=== PATIENT | female | born 1950 | race Caucasian/White ===

== ENCOUNTER → 2017-01-15 | Outpatient (CLI) | payer MEDICARE, MEDICAID ==
[~2017-01-15] MED LIST: ACET500T33 PO; ARFO15VI IH; ASPI-630 PO; BUDE0.5A IH; CHOL500050 PO; DILT120C80 PO; FLUT1DIS3 IH; FURO-69 PO; LEVALBUTER1.25 MG/0. IH; LISI2.5T PO; TIOT18CA IH; TRAM50TA PO; VENTOLIN HFA18 GM IH
--- NOTE | 2017-01-15 10:53 | RAD ---
FDG tumor localization scan, PET/CT, 01/15/2017: History: Restaging lung cancer Multidetector CT imaging was performed following IV injection of 14.7 mCi of 18 F-FDG. The noncontrast CT scans were obtained for attenuation correction and anatomic localization purposes rather than for primary diagnosis. The patient's blood glucose level at the time of injection was 129 MG/DL. Comparison is made to a study from 01/24/2016. No abnormal FDG uptake is seen in the lungs or mediastinum. Physiologic activity is seen in the neck. Normal GI tract and urinary tract activity is present in the abdomen and pelvis. No hypermetabolic lesion is identified in the abdomen or pelvis. Incidental CT findings include the presence of extensive pulmonary emphysema with parenchymal scarring. There is a tiny unchanged low-density lesion in the liver which may be a cyst. There is a small unchanged nodule in the medial left breast. It is not hypermetabolic. IMPRESSION: Stable PET/CT study without evidence of tumor recurrence or metastatic disease.
== END | disposition home or self-care (01) ==
LOC: PETSC 07:23
PROVIDERS: ATTEND Internal Medicine Hematology & Oncology
DX: N63 Unspecified lump in breast (principal); C34.90 Malignant neoplasm of unspecified part of unspecified bronchus or lung
CPT/HCPCS: 78815; A9552

== ENCOUNTER → 2018-01-18 | Outpatient (CLI) | payer MEDICARE, MEDICAID | END | disposition home or self-care (01) | LOC: CT 11:47 | DX: C34.31 Malignant neoplasm of lower lobe, right bronchus or lung (principal); J43.9 Emphysema, unspecified; M48.54XD Collapsed vertebra, not elsewhere classified, thoracic region, subsequent encounter for fracture with routine healing | CPT/HCPCS: 71250 ==

== ENCOUNTER → 2018-07-09 | Outpatient (CLI) | payer MEDICARE, MEDICAID ==
[~2018-07-09] MED LIST changes: -DILT120C80 PO; +DILT120C85 PO
== END | disposition home or self-care (01) ==
LOC: PMGWOUND 09:44
PROVIDERS: ATTEND Preventive Medicine Undersea and Hyperbaric Medicine
DX: L98.493 Non-pressure chronic ulcer of skin of other sites with necrosis of muscle (principal); I10 Essential (primary) hypertension; J43.9 Emphysema, unspecified; M81.0 Age-related osteoporosis without current pathological fracture; Z87.891 Personal history of nicotine dependence; Z85.118 Personal history of other malignant neoplasm of bronchus and lung
CPT/HCPCS: 97597

== ENCOUNTER → 2018-07-16 | Outpatient (CLI) | payer MEDICARE, MEDICAID | END | disposition home or self-care (01) | LOC: PMGWOUND 09:43 | PROVIDERS: ATTEND Preventive Medicine Undersea and Hyperbaric Medicine | DX: L98.493 Non-pressure chronic ulcer of skin of other sites with necrosis of muscle (principal); I10 Essential (primary) hypertension; K43.9 Ventral hernia without obstruction or gangrene; M81.0 Age-related osteoporosis without current pathological fracture; Z87.891 Personal history of nicotine dependence; Z85.118 Personal history of other malignant neoplasm of bronchus and lung | CPT/HCPCS: 97597 ==

== ENCOUNTER → 2018-07-23 | Outpatient (CLI) | payer MEDICARE, MEDICAID | END | disposition home or self-care (01) | LOC: PMGWOUND 09:53 | PROVIDERS: ATTEND Preventive Medicine Undersea and Hyperbaric Medicine | DX: L98.493 Non-pressure chronic ulcer of skin of other sites with necrosis of muscle (principal); I10 Essential (primary) hypertension; J43.9 Emphysema, unspecified; M81.0 Age-related osteoporosis without current pathological fracture; Z87.891 Personal history of nicotine dependence; Z85.118 Personal history of other malignant neoplasm of bronchus and lung | CPT/HCPCS: 97597 ==

== ENCOUNTER → 2018-07-28 | Outpatient (CLI) | payer MEDICARE, MEDICAID | END | disposition home or self-care (01) | LOC: PMGWOUND 08:48 | PROVIDERS: ATTEND Preventive Medicine Undersea and Hyperbaric Medicine | DX: L98.493 Non-pressure chronic ulcer of skin of other sites with necrosis of muscle (principal); J43.9 Emphysema, unspecified; I10 Essential (primary) hypertension; M81.0 Age-related osteoporosis without current pathological fracture; Z87.891 Personal history of nicotine dependence; Z85.118 Personal history of other malignant neoplasm of bronchus and lung | CPT/HCPCS: 97597 ==

== ENCOUNTER → 2018-08-04 | Outpatient (CLI) | payer MEDICARE, MEDICAID | END | disposition home or self-care (01) | LOC: PMGWOUND 08:52 | PROVIDERS: ATTEND Preventive Medicine Undersea and Hyperbaric Medicine | DX: L98.493 Non-pressure chronic ulcer of skin of other sites with necrosis of muscle (principal); J43.9 Emphysema, unspecified; I10 Essential (primary) hypertension; M81.0 Age-related osteoporosis without current pathological fracture; Z87.891 Personal history of nicotine dependence; Z85.118 Personal history of other malignant neoplasm of bronchus and lung | CPT/HCPCS: 97597 ==

== ENCOUNTER → 2018-08-25 | Outpatient (CLI) | payer MEDICARE, MEDICAID | END | disposition home or self-care (01) | LOC: PMGWOUND 10:56 | PROVIDERS: ATTEND Preventive Medicine Undersea and Hyperbaric Medicine | DX: L98.493 Non-pressure chronic ulcer of skin of other sites with necrosis of muscle (principal); J43.9 Emphysema, unspecified; I10 Essential (primary) hypertension; M81.0 Age-related osteoporosis without current pathological fracture; Z87.891 Personal history of nicotine dependence; Z85.118 Personal history of other malignant neoplasm of bronchus and lung | CPT/HCPCS: 99213 ==

== ENCOUNTER → 2018-12-08 | Outpatient (CLI) | payer MEDICARE, MEDICAID ==
--- NOTE | 2018-12-08 14:27 | RAD ---
DATE: 12/08/2018 EXAM: MAMMO WILSON SCREENING BILATERAL HISTORY: Routine screening COMPARISON: None available This study was interpreted with the benefit of Computerized Aided Detection (CAD). Breast Density: SCATTERED The breast parenchyma shows scattered fibroglandular densities. Breast parenchyma level B. FINDINGS: 2-D and 3-D tomosynthesis imaging was performed in CC and MLO projections. There are numerous coarse benign type calcifications in both breasts. There is a smooth nodule at approximately the 9:00 location in the left breast anteriorly which contains coarse calcifications compatible with a benign fibroadenoma. There is a 5 mm smooth nodule in the posterior aspect of the central portion of the left breast best seen on CC tomosynthesis images #11. No spiculated mass or architectural distortion is seen. No suspicious microcalcifications are evident. IMPRESSION: Small posterior left breast nodule. In the absence of prior mammograms to establish stability, sonographic evaluation is suggested. BI-RADS CATEGORY: 0 INCOMPLETE: NEEDS ADDITIONAL IMAGING EVALUATION AND/OR PRIOR MAMMOGRAMS FOR COMPARISON. RECOMMENDED FOLLOW-UP: ADD ADDITIONAL IMAGING PQRS compliance statement: Patient information was entered into a reminder system with a target due date for the next mammogram. Mammography is a sensitive method for finding small breast cancers, but it does not detect them all and is not a substitute for careful clinical examination. A negative mammogram does not negate a clinically suspicious finding and should not result in delay in biopsying a clinically suspicious abnormality. "Our facility is accredited by the [employer] Mammography Program."
== END | disposition home or self-care (01) ==
LOC: MAMMO 12:19
PROVIDERS: ATTEND Family Medicine
DX: Z12.31 Encounter for screening mammogram for malignant neoplasm of breast (principal); N63.20 Unspecified lump in the left breast, unspecified quadrant; N64.89 Other specified disorders of breast
CPT/HCPCS: 77063; 77067

== ENCOUNTER → 2018-12-15 | Outpatient (CLI) | payer MEDICARE, MEDICAID ==
--- NOTE | 2018-12-15 11:19 | RAD ---
EXAM: Left breast ultrasound. HISTORY: Nodule on mammographic screening. Sonography is requested. COMPARISON: None. FINDINGS: Sonographic evaluation of the left retroareolar breast was performed at the site of mammographic concern. At the 9:00 position 1 cm from the nipple, a thick-walled cyst corresponds with a densely calcified nodule slightly medially. This is likely an old complicated cyst or fat necrosis. Another shadowing hypoechoic nodule in the subareolar position appears superficial and likely corresponds with multiple coarse calcifications. A definitive correlate for the small mammographic nodule within the posterior 3rd is not clearly seen. IMPRESSION: 1. BI-RADS Category 3: Probably benign findings. 2. Recommend six-month follow-up left mammography to confirm stability of a small nodule centrally and posteriorly without a clear sonographic correlate.
== END | disposition home or self-care (01) ==
LOC: US 12:11
PROVIDERS: ATTEND Family Medicine
DX: N60.02 Solitary cyst of left breast (principal); R92.2 Inconclusive mammogram
CPT/HCPCS: 76641

== ENCOUNTER → 2019-02-23 | Outpatient (CLI) | payer MEDICARE, MEDICAID ==
--- NOTE | 2019-02-23 09:35 | RAD ---
PQRS Compliance Statement: One or more of the following individualized dose reduction techniques were utilized for this examination: 1. Automated exposure control 2. Adjustment of the mA and/or kV according to patient size 3. Use of iterative reconstruction technique CT chest without contrast February 23, 2019 INDICATION: Malignant neoplasm of the right upper lobe. COMPARISON: CT chest January 18, 2018, PET/CT January 15, 2017 TECHNIQUE: Multiple axial CT images of the chest were obtained without intravenous contrast. Coronal and sagittal reformats are provided. FINDINGS: There is severe centrilobular pulmonary emphysema. Bandlike density in the left lower lobe most favors subsegmental atelectasis or scarring. Stable parenchymal scarring at the right lung base along the right hemidiaphragm. No new or enlarging solid noncalcified pulmonary nodule is identified. Thyroid gland is normal in appearance. No pathologically enlarged thoracic lymph nodes. Heart size within normal limits. Three-vessel coronary artery vascular calcific effusions are identified. No suspicious adrenal nodules. No suspicious hepatic lesion. There is increased density of the hepatic parenchyma. Treated compression fractures are identified at T8, T10 and T11. Remote compression deformity is identified at T7 similar 50-75% height loss. IMPRESSION: 1. Severe centrilobular pulmonary emphysema. Right lower lobe chronic atelectasis or scarring. No new or enlarging solid noncalcified pulmonary nodules. 2. Stable superior plate compression deformity at T7 with chronic treated compression deformities at T8, T10 and T11. Electronically signed by: Roxann Swain MD (02/23/2019 9:32 AM) [id number]
== END | disposition home or self-care (01) ==
LOC: CT 08:28
PROVIDERS: ATTEND Internal Medicine Hematology & Oncology
DX: C34.31 Malignant neoplasm of lower lobe, right bronchus or lung (principal); J43.2 Centrilobular emphysema; J98.4 Other disorders of lung; J90 Pleural effusion, not elsewhere classified
CPT/HCPCS: 71250

== ENCOUNTER → 2019-06-16 | Outpatient (CLI) | payer MEDICARE, MEDICAID ==
[~2019-06-16] MED LIST changes: -DILT120C85 PO; +DILT120C99 PO
--- NOTE | 2019-06-16 14:05 | RAD ---
DATE: June 16, 2019 EXAM: MAMMO WILSON LELANDG LT, BREAST LEFT SONOGRAPHY HISTORY: Follow-up of central nodule seen mammographically only without sonographic correlate. COMPARISON: December 08, 2018 This study was interpreted with the benefit of Computerized Aided Detection (CAD). FINDINGS: Breast Density: SCATTERED The breast parenchyma shows scattered fibroglandular densities. Breast parenchyma level B.. The previously seen central nodule within the left breast is stable. Again seen are coarse calcifications within the left breast. Again seen is a nodule with coarse calcifications of the anterior left breast just medial to the nipple line corresponding to a thick-walled cyst seen sonographically i.e. oil cyst in association with fat necrosis. This is stable. No new new breast mass or architectural distortion or clustering of pleomorphic microcalcifications are evident. LEFT BREAST SONOGRAPHY: High-resolution sonography of the left breast at the 9:00 position again demonstrates a thick-walled cyst measuring 10 mm in greatest dimension and this is unchanged. No internal color Doppler flow is seen within it. Adjacent ductal ectasia is seen. At the 12:00 position of the retroareolar region of the left breast, a 3 mm calcification is seen which corresponds to the mammographic finding of a coarse benign calcification here. IMPRESSION: Stable probable benign nodule of the central aspect left breast. Recommend bilateral mammography in 6 months. Stable complex cyst with a thick wall of the anterior aspect of the left breast at the 9:00 position corresponding to an oil cyst related to fat necrosis seen mammographically. BI-RADS CATEGORY: 3 PROBABLE BENIGN-SHORT TERM F/U RECOMMENDED FOLLOW-UP: 6M 6 MONTH FOLLOW-UP PQRS compliance statement: Patient information was entered into a reminder system with a target due date December 16, 2019 for the next mammogram. Mammography is a sensitive method for finding small breast cancers, but it does not detect them all and is not a substitute for careful clinical examination. A negative mammogram does not negate a clinically suspicious finding and should not result in delay in biopsying a clinically suspicious abnormality. "Our facility is accredited by the [employer] Mammography Program." The patient's breast density may affect the ability of mammography to detect breast cancer. There are 4 categories of breast density, A, B, C and D. Breast density A means that most of the breast tissue is replaced with adipose tissue and therefore is not dense. Breast density B means that the breast tissue is mildly dense and scattered. Breast density C means that the breast tissue is heterogeneously dense. Breast density D means that the breast tissue is very dense. Breast densities especially C and D may decrease the sensitivity of mammography to detect breast cancer. Therefore, the patient may benefit from 3-D breast mammography (3D breast tomography) as a part of their screening mammogram. Insurance may or may not pay for this additional imaging. The patient's breast density based on today's mammogram is category B.
== END | disposition home or self-care (01) ==
LOC: US 12:32
PROVIDERS: ATTEND Family Medicine
DX: N60.42 Mammary duct ectasia of left breast (principal); N60.02 Solitary cyst of left breast; R92.1 Mammographic calcification found on diagnostic imaging of breast
CPT/HCPCS: 76641; 77065; G0279; 77061

== ENCOUNTER → 2019-12-09 | Outpatient (CLI) | payer MEDICARE, MEDICAID ==
--- NOTE | 2019-12-09 12:03 | RAD ---
CLINICAL HISTORY: Prior lung cancer, restaging COMPARISON: None available. TECHNIQUE: Location of scan: [facility] Radiopharmaceutical Dose: 15.5 mCi F-18 FDG intravenous Blood glucose at time of study: 106 FDG uptake time = 60 minutes. Images were obtained from the mid head to the mid thighs. A low dose, noncontrast CT study was performed for the purpose of attenuation correction and anatomic localization. FINDINGS: Head and Neck: Physiologic activity seen within the neck. Chest: No suspicious hypermetabolic focus is seen within the thorax. Emphysematous changes are seen within the lungs. Architectural changes in the right lower lobe dependently likely scarring/atelectasis with associated bronchiectasis. Linear opacities left lower lobe also likely scarring/atelectasis. Coronary artery calcifications are seen. Abdomen and Pelvis: Focus of increased FDG uptake in the right pelvis likely dependent aspect of the partially distended bladder with an SUV max of 25. No associated dominant mass or bowel loop is seen correlating to this focus. Physiologic activity is seen within the renal collecting systems, bowel as well as the solid organs including liver. High density appearance of the liver is nonspecific and may be seen with metal deposition disease, glycogen storage disease and from amiodarone therapy. Subcentimeter hypodense left hepatic lobe lesion is too small to accurately characterize. Nonobstructing right lower pole renal calculus. Dense aortic calcifications are seen. Skeletal: There is now increased FDG activity diffusely within the marrow. No definite aggressive osseous lesion is seen. Multilevel degenerative changes of spine with multilevel compression fractures and kyphoplasty change. Reference SUV Values: Mediastinal SUV Max: 2.1 Liver SUV Max: 2.4 IMPRESSION 1. Diffuse increased FDG activity of the marrow, typically seen with post treatment related changes. However pathologic marrow process including severe anemia and myelodysplastic syndrome would have also this appearance. 2. Otherwise, no definite abnormal hypermetabolic focus is seen to suggest metastatic disease. 3. Mild increased density of the liver may be seen with metal deposition disease and amiodarone therapy. Radiation Dosimetry: The radiopharmaceutical used for this exam delivers approximately 0.7 mSv/mCi (70 mRem/mCi) Source: ICRP Publication 106 Electronically signed by: Lyle Cheek MD (12/09/2019 12:00 PM) [id number]
== END | disposition home or self-care (01) ==
LOC: PETSC 10:20
PROVIDERS: ATTEND Internal Medicine Hematology & Oncology
DX: C34.31 Malignant neoplasm of lower lobe, right bronchus or lung (principal); J43.9 Emphysema, unspecified; I25.10 Atherosclerotic heart disease of native coronary artery without angina pectoris; E74.00 Glycogen storage disease, unspecified; K76.89 Other specified diseases of liver; N20.0 Calculus of kidney; I70.0 Atherosclerosis of aorta
CPT/HCPCS: 78815; A9552

== ENCOUNTER → 2020-01-04 | Outpatient (CLI) | payer MEDICARE, MEDICAID ==
[2020-01-04 11:42] LABS: BASO % 5 % (0-3); EOS # 0.1 x10^3/uL (0.0-0.7); EOS % 1 % (0-3); HEMATOCRIT 40.8 % (36.0-47.0); HEMOGLOBIN 13.2 g/dL (12.0-15.5); LYMPH # 1.1 x10^3/uL (1.0-4.8); LYMPH % 5 % (24-48); MEAN CORPUSCULAR HEMOGLOBIN 29 pg (25-35); MEAN CORPUSCULAR HGB CONC 32 g/dL (31-37); MEAN CORPUSCULAR VOLUME 89 fL (79-100); MONO # 0.3 x10^3/uL (0.0-1.1); MONO % 1 % (0-9); NEUT # 18.6 x10^3/uL (1.8-7.7); NEUT % 88 % (31-73); PLATELET COUNT 821 x10^3/uL (140-400); RED BLOOD COUNT 4.59 x10^6/uL (3.50-5.40); RED CELL DISTRIBUTION WIDTH 17.5 % (11.5-14.5)
[2020-01-04 11:49] LABS: CALCIUM 9.3 mg/dL (8.5-10.1); CREATININE 0.8 mg/dL (0.6-1.0); GFR 71.3; POTASSIUM 4.2 mmol/L (3.5-5.1)
[2020-01-04 11:58] LABS: ALBUMIN 3.6 g/dL (3.4-5.0); DIRECT BILIRUBIN 0.1 mg/dL (0.0-0.2); TOTAL BILIRUBIN 0.2 mg/dL (0.2-1.0); TOTAL PROTEIN 7.4 g/dL (6.4-8.2); URIC ACID 4.3 mg/dL (2.6-6.0)
[2020-01-04 12:13] LABS: WHITE BLOOD COUNT 21.1 x10^3/uL (4.0-11.0)
== END | disposition home or self-care (01) ==
LOC: ONCLAB 11:26
PROVIDERS: ATTEND Internal Medicine Hematology & Oncology
DX: C34.90 Malignant neoplasm of unspecified part of unspecified bronchus or lung (principal)
CPT/HCPCS: 36415; 80048; 80076; 83615; 83735; 84550; 85025; 86705; 86709; 86803; 87340

== ENCOUNTER → 2020-01-09 | Outpatient (CLI) | payer MEDICARE, MEDICAID ==
[~2020-01-09] MED LIST changes: +ALEN70TA6 PO; +AMIO100T4 PO; +APIX5TAB PO; +BUDE0.5A NEB; +CALC-71 PO; +DILT240C33 PO; +FURO20TA3 PO; +IBUP200T58 PO; +IPRA3AMP29 NEB; +POLY17PO29 PO; +POTA10TA6 PO; +Vitamin D2 PO; +[UNRECOGNIZED DRUG - CODE] PO
--- NOTE | 2020-01-09 17:32 | CARD ---
MR#: [id number] Date of Study: 01/09/2020 Ordering Physician: DEEJAY MAJOR, Referring Physician: DEEJAY MAJOR, Tech: Kait Myers APPROVED REPORT EXAM: Two-dimensional and M-mode echocardiogram with Doppler and color Doppler. Other Information Quality : AverageHR: 99bpm Technically limited study due to COPD INDICATION LV Function:SystolicDiastolic RISK FACTORS Hypertension 2D DIMENSIONS Left Atrium(2D)2.9 (1.6-4.0cm)IVSd1.2 (0.7-1.1cm) Aortic Root(2D)3.2 (2.0-3.7cm)LVDd4.2 (3.9-5.9cm) LVOT Diameter2.0 (1.8-2.4cm)PWd1.0 (0.7-1.1cm) LVDs2.6 (2.5-4.0cm)LVEF(%)64.0 (>50%) Aortic Valve AoV Peak Frank.148.8cm/sAoV VTI28.6cm AO Peak GR.8.9mmHgLVOT Peak Frank.99.6cm/s LVOT VTI 25.57cmAO Mean GR.5mmHg Mitral Valve MV E Peak Gr.146mmHgMV E Mean Gr.2mmHg Pulmonary Valve PV Peak Yqrcbtii108.2cm/sPV Peak Grad.4mmHg Tricuspid Valve TR P. Joqbujxs689zv/sRAP FVKZFRKN1prHv TR Peak Gr.70loKkBKJF30nwPt Pulmonary Vein S1 Shuvxefh91.2cm/sD2 Amtkqnlo88.5cm/s PVa frmxbyrg589fbmr LEFT VENTRICLE The left ventricle is normal size. There is borderline to mild concentric left ventricular hypertroph y. The left ventricular systolic function is low normal. EF 50% Wall motion consistent with conductio n abnormality. Otherwise, grossly normal wall motion. Transmitral Doppler flow pattern is Grade I-abn ormal relaxation pattern. RIGHT VENTRICLE The right ventricle is normal size. There is normal right ventricular wall thickness. The right ventr icular systolic function is normal. ATRIA The left atrium size is normal. The right atrium size is normal. The interatrial septum is intact wit h no evidence for an atrial septal defect or patent foramen ovale as noted on 2-D or Doppler imaging. AORTIC VALVE The aortic valve is thickened but opens well. Doppler and Color Flow revealed no significant aortic r egurgitation. There is no significant aortic valvular stenosis. Calculated aortic maximum pressure gr adient of 9 mmHg and mean pressure gradient of 5 mmHg. MITRAL VALVE The mitral valve is normal in structure and function. There is no evidence of mitral valve prolapse. There is no mitral valve stenosis. Doppler and Color-flow revealed trace to mild mitral regurgitation . TRICUSPID VALVE The tricuspid valve is normal in structure and function. Doppler and Color Flow revealed mild tricusp id regurgitation with an estimated PAP of 58 mmHg. There is no tricuspid valve stenosis. PULMONIC VALVE The pulmonic valve is not well visualized. Doppler and Color Flow revealed trace pulmonic valvular re gurgitation. There is no pulmonic valvular stenosis. GREAT VESSELS The aortic root is normal in size. The IVC is normal in size and collapses >50% with inspiration. PERICARDIAL EFFUSION There is no evidence of significant pericardial effusion. Critical Notification Critical Value: No <Conclusion> The left ventricular systolic function is low normal. EF 50% Wall motion consistent with conduction abnormality. Otherwise, grossly normal wall motion. Doppler and Color Flow revealed mild tricuspid regurgitation with an estimated PAP of 58 mmHg. Signed by : Chepe Saab, Electronically Approved : 01/09/2020 17:32:07
== END | disposition home or self-care (01) ==
LOC: ECHO 14:48
PROVIDERS: ATTEND Internal Medicine Hematology & Oncology
DX: I08.1 Rheumatic disorders of both mitral and tricuspid valves (principal); C92.10 Chronic myeloid leukemia, BCR/ABL-positive, not having achieved remission
CPT/HCPCS: 93306

== ENCOUNTER 2020-01-11 06:57 | Outpatient (CLI) | payer MEDICARE, MEDICAID ==
[~2020-01-11] VITALS: Ht 157.5 cm; Wt 50.8 kg
[2020-01-11] VITALS (9 sets, daily range): BP systolic 134–202; BP diastolic 60–87
[~2020-01-11 06:57] MED LIST changes: -ALEN70TA6 PO; -AMIO100T4 PO; -APIX5TAB PO; -BUDE0.5A NEB; -CALC-71 PO; -DILT240C33 PO; -FURO20TA3 PO; -IBUP200T58 PO; -IPRA3AMP29 NEB; -POLY17PO29 PO; -POTA10TA6 PO; -Vitamin D2 PO; -[UNRECOGNIZED DRUG - CODE] PO
[2020-01-11] MEDS ORDERED: IBUP200T58 PO (07:30)
[2020-01-11] MEDS ORDERED: POLY17PO29 PO (07:30)
[2020-01-11] MEDS ORDERED: CALC-71 PO (07:30)
[2020-01-11] MEDS ORDERED: BUDE0.5A NEB (07:30)
[2020-01-11] MEDS ORDERED: [UNRECOGNIZED DRUG - CODE] PO (07:30)
[2020-01-11] MEDS ORDERED: AMIO100T4 PO (07:30)
[2020-01-11] MEDS ORDERED: FURO20TA3 PO (07:30)
[2020-01-11] MEDS ORDERED: IPRA3AMP29 NEB (07:30)
[2020-01-11] MEDS ORDERED: POTA10TA6 PO (07:30)
[2020-01-11] MEDS ORDERED: Vitamin D2 PO (07:30)
[2020-01-11] MEDS ORDERED: DILT240C33 PO (07:30)
[2020-01-11] MEDS ORDERED: APIX5TAB PO (07:30)
[2020-01-11] MEDS ORDERED: ALEN70TA6 PO (07:30)
[2020-01-11 07:31] LABS: BASO # 0.8 x10^3/uL (0.0-0.2); BASO % 3 % (0-3); EOS # 0.1 x10^3/uL (0.0-0.7); EOS % 1 % (0-3); HEMATOCRIT 39.4 % (36.0-47.0); LYMPH # 1.1 x10^3/uL (1.0-4.8); LYMPH % 5 % (24-48); MEAN CORPUSCULAR HEMOGLOBIN 29 pg (25-35); MEAN CORPUSCULAR HGB CONC 33 g/dL (31-37); MEAN CORPUSCULAR VOLUME 89 fL (79-100); MONO # 0.3 x10^3/uL (0.0-1.1); MONO % 1 % (0-9); NEUT # 21.2 x10^3/uL (1.8-7.7); NEUT % 90 % (31-73); PLATELET COUNT 799 x10^3/uL (140-400); RED BLOOD COUNT 4.45 x10^6/uL (3.50-5.40); RED CELL DISTRIBUTION WIDTH 17.3 % (11.5-14.5); WHITE BLOOD COUNT 23.6 x10^3/uL (4.0-11.0)
[2020-01-11 07:40] LABS: PROTHROMBIN TIME PATIENT 13.3 SEC (11.7-14.0)
[2020-01-11] MEDS ORDERED: LIDOCAINE WITH 8.4% SOD BICARB 3 ML DISP.SYRIN. ONE (08:19)
[2020-01-11] MEDS ORDERED: fentaNYL PF VIAL 100 MCG/2 ML VIAL ONE (08:42)
[2020-01-11] MEDS ORDERED: MIDAZOLAM HCL/PF 2 MG/2 ML VIAL. ONE (08:42)
[2020-01-11] MEDS ORDERED: LIDOCAINE WITH 8.4% SOD BICARB 3 ML DISP.SYRIN. IJ ONE (09:00)
[2020-01-11] MEDS ORDERED: fentaNYL PF VIAL 100 MCG/2 ML VIAL IV ONE (09:00)
[2020-01-11] MEDS ORDERED: MIDAZOLAM HCL/PF 2 MG/2 ML VIAL. IV ONE (09:00)
--- NOTE | 2020-01-11 10:50 | NUR ---
Discharge Note: JEM [place] Discharge instructions and discharge home medications reviewed with Patient and a copy given. All questions have been answered and understanding verbalized. Dressing remains clean and dry The following instructions and handouts were given: Bone marrow biopsy Discontinued lines and drains: Peripheral IV intact. Patient discharged to Home or Self Care with Family Member via personal Wheelchair PREET COVARRUBIAS Addendum: 01/11/20 at 1138 by ENZO BEASLEY RN Amended: Links added.
[2020-01-11 10:56] LABS: % BANDS 2 % (0-9); % BASOS 7 % (0-3); % LYMPHS 3 % (24-48); % METAS 1 % (0-0); % MONOS 5 % (0-10); % MYELOS 1 % (0-0); % SEGS 81 % (35-66); PLT ESTIMATE INCREASED (ADEQUATE)
--- NOTE | 2020-01-12 08:42 | RAD ---
Procedure: CT-guided bone marrow aspiration and biopsy Clinical Indication: Adult female with anemia Sedation: Minimal anxiolysis was provided. Antibiotics: None Fluoro Time: Not applicable Contrast: None Sterility: The procedure was performed in its entirety using appropriate elements of sterile technique. Consent: The procedure was explained in its entirety to the patient or the patients designated major account representative by a member of the treatment team, including a discussion of the risks, benefits and commonly accepted alternatives to the procedure, as well as the expected consequences of no therapy whatsoever. Discussion of the risks included, but was not limited to, those that are most frequent and those that are rare but possibly severe or life-threatening, as well as the possibility of unforeseen complications. Technique and Findings: Following informed consent, the patient was prepped and draped in usual sterile fashion. Preliminary CT scan of the area of interest was performed. 1% Lidocaine was used to achieve local anesthesia. Under periodic CT surveillance, an 11-gauge needle was advanced through the cortex of the posterior superior iliac spine and 2 separate 2 mL marrow aspirates were obtained and preserved on site by the financial assistant. A single 11-gauge core biopsy specimen was then obtained and preserved in formalin. The needle was then removed and hemostasis was achieved with manual compression. Complications: No immediate Impression: 1. CT-guided bone marrow aspiration and biopsy as described PQRS Compliance Statement: One or more of the following individualized dose reduction techniques were utilized for this examination: 1. Automated exposure control 2. Adjustment of the mA and/or kV according to patient size 3. Use of iterative reconstruction technique
--- NOTE | 2020-01-20 09:08 | PATHOLOGY ---
[facility] Accession Number: [id number] . 01 Material submitted: . PART A: bone - BONE MARROW BIOPSY PART B: bone - BONE MARROW CLOT PART C: bone - BONE MARROW ASPIRATE SLIDES PART D: bone - PERIPHERAL BLOOD SMEARS PART E: bone - BONE MARROW FLOW . 01 Clinical history: . Chronic myelogenous leukemia . 02 Diagnosis: Peripheral smear: - Moderate neutrophilic leukocytosis with left shift and small myelocyte bulge, and absolute basophilia. - Thrombocytosis, moderate. . Bone marrow, aspirate smears, clot section, and core biopsy: - Markedly hypercellular marrow showing trilieage hematopoeisis, granulocytic hyperplasia with left shift and myelocyte bulge, megakaryocytic hyperplasia with dwarf megakaryocytes, mild basophilia, and presence of t(9;22) translocation - findings compatible with chronic myelogenous leukemia, chronic phase. - Absent iron stores. (JPM:dianna; 01/19/2020) [facility] 01/20/2020 0846 Local . 02 Comment: The peripheral smear shows a moderate neutrophilic leukocytosis with small myelocyte bulge, absolute basophilia, and moderate thrombocytosis. The bone marrow is markedly hypercellular and shows granulocytic hyperplasia with left shift and myelocyte bulge, mild basophilia, and megakaryocytic hyperplasia with dwarf megakaryocytes. There are approximately 2% blasts by morphology and flow cytometric analysis. Cytogenetic analysis shows a t(9;22) translocation in all cells. The findings are supportive of the diagnosis of chronic myelogenous leukemia, chronic phase. (EDDM:dianna; 01/19/2020) . Special stains performed: Iron stains on B1 and C1; retic stain on A1. . 02 Electronically signed: . Wilton Holland MD, Pathologist NPI- [id number] . 01 Gross description: . A. The specimen is received in formalin, labeled "Bailey Son, bone marrow biopsy". Received are two needle cores of light ritchie bone ranging in length from 0.3 to 1.1 cm and measuring 0.3 cm in diameter. The specimen is submitted entirely in cassette A1, following light decalcification. . B. The specimen is received in formalin, labeled "Bailey Son, BM aspirate clot". Received is blood coagulum measuring 1.5 x 1.3 x 0.1 cm in aggregate dimensions. The specimen is filtered and entirely submitted in cassette B1. (CAA; 01/11/2020) QA/QA 01/11/2020 1638 Local . 02 Microscopic: . Laboratory Data: The WBC count is 23.6 K/CMM, and the WBC differential reveals 81% segmented neutrophils, 2% bands, 3% lymphs, 5% monos, 7% baso, 1% metamyelocytes, and 1% myelocytes. The RBC count is 4.45 M/CMM, hemoglobin 13.0 G/DL, hematocrit 39.4%, MCV 89 FL, MCH 29 PG, MCHC 33 G/DL, and the RDW is 17.3%. The platelet count is 799 K/CMM. The LDH is 281 U/L. . Peripheral Smear: The peripheral smear is reviewed. The WBC count is moderately increased. There is a neutrophilic leukocytosis with left shift, and an absolute basophilia. The WBC differential reveals a predominance of segmented neutrophils. There is a neutrophilic left shift with several myelocytes and metamyelocytes and a rare blast noted. There are a few lymphocytes and monocytes. Basophils are increased. Red blood cells predominantly appear normochromic and normocytic and show mild anisocytosis. Red blood cells show no significant poikilocytosis. There is a rare circulating nucleated red blood cell. Platelets are moderately increased with occasional large and rare giant platelets noted. . Aspirate Smears: Two Thomas's-stained and one iron-stained aspirate smears are examined. The smears contain multiple cellular marrow particles which are obviously hypercellular for age. There is a granulocytic hyperplasia. The M/E ratio is on the order of approximately 10:1. Erythroid maturation is normoblastic. There are no megaloblastic or overt dysplastic changes. There is a modest left shift of granulopoiesis with a small myelocyte bulge mirroring the peripheral smear. There are only 2% blasts. No Jaswinder rods are identified. There is megakaryocytic hyperplasia with focal clustering of megakaryocytes noted. The megakaryocytes are smaller than normal and have hyposegmented nuclei (dwarf megakaryocytes). Eosinophils are not increased. Basophils are mildly increased. There are occasional pseudo-Gaucher cells present. There is no increase of lymphocytes or plasma cells. There are no cells foreign to the marrow. The iron stain shows absent iron stores. No ringed sideroblasts are identified. . Bone Marrow Biopsy and Clot Section: Sections of the bone marrow biopsy reveal a hypercellular marrow which is approximately 80-90% cellular. The clot section contains numerous marrow particles which also are on the order of 80-90% cellular. There is a granulocytic hyperplasia. Erythopoeisis appears decreased. Maturing granulocytes are readily demonstrated. There are also areas showing an increase of medium-sized immature mononuclear cells compatible with a left shift of granulocytic maturation and myelocyte bulge. There is no apparent increase of blasts. Megakaryocytes are increased and focally clustered. The megakaryocytes are smaller than normal and have hyposegmented nuclei (dwarf megakaryocytes). There are focal pseudo-Gaucher cells. There are no abnormal lymphoid aggregates, granulomas, or cells foreign to the marrow. The reticulin stain of the biopsy shows focal mild increase of reticulin fibers. The iron stain of the clot section shows absent iron stores. . Special Studies: Bone marrow submitted for flow cytometric analysis has a viability of 93.5%. Granulocytes comprise 93.7% of total cells and show phenotypic evidence of left shifted maturation with expression of CD56. Eosinophils comprise 0.3% of total cells. Basophils also comprise 0.3% of total cells. CD45 dim, CD34 positive cells comprise 1.8% of total cells. Monocytes comprise 1.9% of total cells. Lymphocytes comprise 1.8% of total cells. T-cells comprise 79% of lymphoid cells and show a CD4/CD8 ratio of 1.0. NK-cells comprise 11% of lymphoid cells. Mature B-cells comprise 3% of lymphoid cells and are polyclonal with a kappa:lambda ratio of 2.5. Plasma cells comprise 0.3% of total cells. . Bone marrow submitted for cytogenetic analysis shows an abnormal female karyotype. 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 . (JPM:dianna; 01/19/2020) . 02 Pathologist provided ICD-10: D72.829, D47.3, D75.89 . 02 CPT . 655771, 072779, 238033, 173248, 098039, 490309, 407517, 846803 Specimen Comment: A courtesy copy of this report has been sent to [phone], [phone] Specimen Comment: [id number], Specimen Comment: Report sent to ,DR MAJOR / DR AVITIA Performed at: 01 [facility] [address], [place] [id number] MD Buck Acharya MD Phone: [phone] Performed at: 02 [facility] [address], [place] [id number] MD Wilton Holland MD Phone: [phone]
== END 2020-01-11 10:50 | disposition home or self-care (01) ==
LOC: INTRAD 06:57
PROVIDERS: ATTEND Internal Medicine Hematology & Oncology
DX: C92.10 Chronic myeloid leukemia, BCR/ABL-positive, not having achieved remission (principal); Z79.01 Long term (current) use of anticoagulants
CPT/HCPCS: 36415; 38222; 77012; 85025; 85610; 88184; 88185; 88237; J3010; J3490; 85007; 88305; 88311; 88313; 99152

== ENCOUNTER → 2020-01-26 | Outpatient (CLI) | payer MEDICARE, MEDICAID ==
[2020-01-11 10:45] VITALS: BP 139/68
[~2020-01-26] MED LIST changes: +ALEN70TA6 PO; +AMIO100T4 PO; +APIX5TAB PO; +BUDE0.5A NEB; +CALC-71 PO; +DILT240C33 PO; +FURO20TA3 PO; +IBUP200T58 PO; +IPRA3AMP29 NEB; +POLY17PO29 PO; +POTA10TA6 PO; +Vitamin D2 PO; +[UNRECOGNIZED DRUG - CODE] PO
[2020-01-26 13:13] LABS: BASO # 0.4 x10^3/uL (0.0-0.2); BASO % 3 % (0-3); EOS # 0.1 x10^3/uL (0.0-0.7); EOS % 1 % (0-3); LYMPH # 0.8 x10^3/uL (1.0-4.8); LYMPH % 5 % (24-48); MEAN CORPUSCULAR HEMOGLOBIN 31 pg (25-35); MEAN CORPUSCULAR HGB CONC 34 g/dL (31-37); MEAN CORPUSCULAR VOLUME 89 fL (79-100); MONO # 0.1 x10^3/uL (0.0-1.1); MONO % 1 % (0-9); NEUT # 13.4 x10^3/uL (1.8-7.7); NEUT % 90 % (31-73); PLATELET COUNT 714 x10^3/uL (140-400); RED BLOOD COUNT 4.27 x10^6/uL (3.50-5.40); RED CELL DISTRIBUTION WIDTH 17.1 % (11.5-14.5); WHITE BLOOD COUNT 14.9 x10^3/uL (4.0-11.0)
[2020-01-26 13:41] LABS: CREATININE 0.9 mg/dL (0.6-1.0); GFR 62.3; POTASSIUM 4.1 mmol/L (3.5-5.1)
[2020-01-26 13:45] LABS: ALBUMIN 3.4 g/dL (3.4-5.0); TOTAL BILIRUBIN 0.3 mg/dL (0.2-1.0); TOTAL PROTEIN 6.8 g/dL (6.4-8.2); URIC ACID 4.5 mg/dL (2.6-6.0)
[2020-01-26 13:49] LABS: % BANDS 1 % (0-9); % MONOS 1 % (0-10); % SEGS 90 % (35-66); PLT ESTIMATE INCREASED (ADEQUATE)
[2020-01-26 13:50] LABS: ANISOCYTOSIS SLIGHT
[2020-01-26 13:52] LABS: % BASOS 3 % (0-3); % LYMPHS 5 % (24-48); POIKILOCYTOSIS SLIGHT
== END | disposition home or self-care (01) ==
LOC: ONCLAB 12:51
PROVIDERS: ATTEND Internal Medicine Hematology & Oncology
DX: R92.8 Other abnormal and inconclusive findings on diagnostic imaging of breast (principal); N63.22 Unspecified lump in the left breast, upper inner quadrant
CPT/HCPCS: 36415; 80053; 83615; 84550; 85007; 85025

== ENCOUNTER → 2020-02-10 | Outpatient (CLI) | payer MEDICARE, MEDICAID ==
[2020-01-11 10:45] VITALS: BP 139/68
[~2020-02-10] MED LIST changes: +GLEEVEC400 MG PO
[2020-02-10 13:03] LABS: BASO % 0 % (0-3); EOS % 0 % (0-3); HEMATOCRIT 33.5 % (36.0-47.0); HEMOGLOBIN 11.1 g/dL (12.0-15.5); LYMPH # 0.3 x10^3/uL (1.0-4.8); LYMPH % 4 % (24-48); MEAN CORPUSCULAR HEMOGLOBIN 30 pg (25-35); MEAN CORPUSCULAR HGB CONC 33 g/dL (31-37); MEAN CORPUSCULAR VOLUME 90 fL (79-100); MONO # 0.2 x10^3/uL (0.0-1.1); MONO % 3 % (0-9); NEUT # 6.7 x10^3/uL (1.8-7.7); NEUT % 93 % (31-73); PLATELET COUNT 58 x10^3/uL (140-400); RED BLOOD COUNT 3.72 x10^6/uL (3.50-5.40); RED CELL DISTRIBUTION WIDTH 17.5 % (11.5-14.5); WHITE BLOOD COUNT 7.2 x10^3/uL (4.0-11.0)
[2020-02-10 13:28] LABS: BLOOD UREA NITROGEN 10 mg/dL (7-20); BUN/CREATININE RATIO 14 (6-20); CALCIUM 8.7 mg/dL (8.5-10.1); CARBON DIOXIDE 38 mmol/L (21-32); CHLORIDE 101 mmol/L (98-107); CREATININE 0.7 mg/dL (0.6-1.0); GFR 83.2; GLUCOSE 84 mg/dL (70-99); POTASSIUM 3.7 mmol/L (3.5-5.1); SODIUM 138 mmol/L (136-145)
[2020-02-10 13:49] LABS: ALBUMIN 2.8 g/dL (3.4-5.0); ALBUMIN/GLOBULIN RATIO 0.9 (1.0-1.7); ALK PHOS 92 U/L (46-116); ALT (SGPT) 19 U/L (14-59); AST (SGOT) 19 U/L (15-37); TOTAL BILIRUBIN 0.4 mg/dL (0.2-1.0); TOTAL PROTEIN 5.9 g/dL (6.4-8.2)
[2020-02-10 13:51] LABS: % LYMPHS 4 % (24-48); % MONOS 2 % (0-10); % SEGS 94 % (35-66)
[2020-02-10 13:52] LABS: ANISOCYTOSIS SLIGHT; PLT ESTIMATE DECREASED (ADEQUATE)
== END | disposition home or self-care (01) ==
LOC: ONCLAB 12:47
PROVIDERS: ATTEND Internal Medicine Hematology & Oncology
DX: C92.10 Chronic myeloid leukemia, BCR/ABL-positive, not having achieved remission (principal)
CPT/HCPCS: 36415; 80053; 85007; 85025

== ENCOUNTER → 2020-02-10 | Outpatient (CLI) | payer MEDICARE, MEDICAID ==
[2020-01-11 10:45] VITALS: BP 139/68
[~2020-02-10] MED LIST changes: -GLEEVEC400 MG PO
--- NOTE | 2020-02-10 15:30 | RAD ---
EXAM: CHEST PA LATERAL INDICATION: Reason: CHRONIC MYELOGENOUS LUKEMIA. SHORTNESS OF BREATH. / Spl. Instructions: / History: . TECHNIQUE: PA and lateral views COMPARISON: PET CT 12/09/2019 FINDINGS: The heart size is normal. The great vessels appear unremarkable. There is no hilar or mediastinal mass. Lungs are hyperlucent in a pattern consistent with underlying COPD. Small bilateral pleural effusions are present. No pneumothorax Bones are demineralized and show evidence of vertebroplasty at T8, T10 and T11, similar to prior. IMPRESSION: Emphysema and small bilateral pleural effusions. No pneumothorax or other acute superimposed cardiopulmonary process. Electronically signed by: Kathleen Meraz MD (02/10/2020 3:27 PM) [id number]
== END | disposition home or self-care (01) ==
LOC: LAB 13:34
PROVIDERS: ATTEND Internal Medicine Hematology & Oncology
DX: C92.10 Chronic myeloid leukemia, BCR/ABL-positive, not having achieved remission (principal); J43.9 Emphysema, unspecified; J90 Pleural effusion, not elsewhere classified; Z98.1 Arthrodesis status
CPT/HCPCS: 71046

== ENCOUNTER 2020-02-20 18:40 | Inpatient (IN) | payer MEDICARE, MEDICAID ==
[~2020-02-20] VITALS: Ht 160 cm; Wt 54.4 kg
[2020-02-20] MEDS ORDERED: methylPREDNISolone SOD SUCC PF 125 MG/2 ML VIAL. IV ONE (19:15)
[2020-02-20] MEDS ORDERED: cefTRIAXone IV Push 1 GM VIAL. IVP ONE (19:15)
[2020-02-20] MEDS ORDERED: AZITHRMYCN 500MG IVPB FOR OMNI 250 ML IV ONE (19:15)
--- NOTE | 2020-02-20 19:16 | PHYS DOC ---
Past Medical History Past Medical History: Cancer, COPD, Immunosuppression Additional Past Medical Histor: Right lung cancer; emphysema, leukemia Past Surgical History: Other Additional Past Surgical Histo: Bone Marrow Biopsy - January 2020 Smoking Status: Former Smoker Alcohol Use: None General Adult EDM: Chief Complaint: SHORTNESS OF BREATH HPI: HPI: Patient is a 69 year old female with a history of COPD presents with a 2-day history of shortness of breath. Symptoms are worse with exertion. Patient has had a cough but no fever. Patient received nebulizer prior to arrival with some improvement. Patient denies any pain at this time. No known sick contacts. Symptoms are moderate currently but can be severe with exertion. Review of Systems: Review of Systems: Constitutional: Denies fever or chills. [] Eyes: Denies change in visual acuity. [] HENT: Complains of congestion Respiratory: Complains of cough and shortness of breath Cardiovascular: Denies chest pain or edema. [] GI: Denies abdominal pain, nausea, vomiting, bloody stools or diarrhea. [] : Denies dysuria. [] Musculoskeletal: Denies back pain or joint pain. [] Integument: Denies rash. [] Neurologic: Denies headache, focal weakness or sensory changes. [] Endocrine: Denies polyuria or polydipsia. [] Lymphatic: Denies swollen glands. [] Psychiatric: Denies depression or anxiety. [] Heart Score: HEART Score for Chest Pain: HEART Score for Chest Pain Response (Comments) Value History Slighlty/Non-Suspicious 0 ECG Nonspecific Repolarizatio 1 Age > 65 2 Risk Factors 1 or 2 Risk Factors 1 Troponin < Normal Limit 0 Total 4 Risk Factors: Risk Factors: DM, Current or recent (<one month) smoker, HTN, HLP, family history of CAD, obesity. Risk Scores: Score 0 - 3: 2.5% MACE over next 6 weeks - Discharge Home Score 4 - 6: 20.3% MACE over next 6 weeks - Admit for Clinical Observation Score 7 - 10: 72.7% MACE over next 6 weeks - Early Invasive Strategies Current Medications: Current Medications Medications (Trade) Dose Ordered Sig/Torsten Start Time Stop Time Status Last Admin Dose Admin Azithromycin 250 ml @ 250 mls/hr 1X ONCE 02/20/20 19:15 02/20/20 20:14 Ceftriaxone Sodium (Rocephin) 1 gm 1X ONCE 02/20/20 19:15 02/20/20 19:16 Methylprednisolone Sodium Succinate (SOLU-Medrol 125MG VIAL) 125 mg 1X ONCE 02/20/20 19:15 02/20/20 19:16 Allergies: Allergies: Allergies Coded Allergies Type Severity Reaction Last Updated Verified acetaminophen Allergy Severe Hallucinations 01/11/20 Yes oxycodone Allergy Severe Hallucinations 01/11/20 Yes Physical Exam: PE: Constitutional: Well developed, well nourished, mild respiratory distress, non- toxic appearance. [] HENT: Normocephalic, atraumatic, bilateral external ears normal, no trismus, nose normal. [] Eyes: PERRLA, EOMI, conjunctiva normal, no discharge. [] Neck: Normal range of motion, no tenderness, supple, no stridor. [] Cardiovascular:Heart rate regular rhythm, peripheral pulses intact, cap refill brisk Lungs & Thorax: Diminished breath sounds with expiratory wheezing Abdomen: Bowel sounds normal, soft, no tenderness, no masses, no pulsatile masses. [] Skin: Warm, dry, no erythema, no rash. [] Back: No tenderness, no CVA tenderness. [] Extremities: No tenderness, no cyanosis, no clubbing, ROM intact, no edema. [] Neurologic: Alert and oriented X 3, normal motor function, normal sensory function, no focal deficits noted. [] Psychologic: Affect normal, judgement normal, mood normal. [] Current Patient Data: Labs: Laboratory Tests Test 02/20/20 19:33 White Blood Count 4.0 x10^3/uL Red Blood Count 3.35 x10^6/uL Hemoglobin 10.0 g/dL Hematocrit 30.6 % Mean Corpuscular Volume 91 fL Mean Corpuscular Hemoglobin 30 pg Mean Corpuscular Hemoglobin Concent 33 g/dL Red Cell Distribution Width 17.6 % Platelet Count 77 x10^3/uL Neutrophils (%) (Auto) 86 % Lymphocytes (%) (Auto) 9 % Monocytes (%) (Auto) 5 % Eosinophils (%) (Auto) 0 % Basophils (%) (Auto) 0 % Neutrophils # (Auto) 3.4 x10^3/uL Lymphocytes # (Auto) 0.3 x10^3/uL Monocytes # (Auto) 0.2 x10^3/uL Eosinophils # (Auto) 0.0 x10^3/uL Basophils # (Auto) 0.0 x10^3/uL Sodium Level 139 mmol/L Potassium Level 3.1 mmol/L Chloride Level 100 mmol/L Carbon Dioxide Level 37 mmol/L Anion Gap 2 Blood Urea Nitrogen 15 mg/dL Creatinine 0.6 mg/dL Estimated GFR (Cockcroft-Gault) 99.4 BUN/Creatinine Ratio 25 Glucose Level 122 mg/dL Lactic Acid Level 0.7 mmol/L Calcium Level 8.1 mg/dL Total Bilirubin 0.4 mg/dL Aspartate Amino Transf (AST/SGOT) 17 U/L Alanine Aminotransferase (ALT/SGPT) 21 U/L Alkaline Phosphatase 88 U/L Troponin I Quantitative < 0.017 ng/mL [id number] Natriuretic Peptide 218 pg/mL Total Protein 5.5 g/dL Albumin 2.8 g/dL Albumin/Globulin Ratio 1.0 Current Medications Medications (Trade) Dose Ordered Sig/Torsten Route PRN Reason Start Time Stop Time Status Last Admin Dose Admin Azithromycin 250 ml @ 250 mls/hr 1X ONCE IV 02/20/20 19:15 02/20/20 20:14 DC 02/20/20 19:56 Ceftriaxone Sodium (Rocephin) 1 gm 1X ONCE IVP 02/20/20 19:15 02/20/20 19:16 DC 02/20/20 19:49 Methylprednisolone Sodium Succinate (SOLU-Medrol 125MG VIAL) 125 mg 1X ONCE IV 02/20/20 19:15 02/20/20 19:16 DC 02/20/20 19:40 Albuterol Sulfate (Ventolin Neb Soln) 7.5 mg 1X ONCE NEB 02/20/20 19:30 02/20/20 19:31 DC 02/20/20 19:55 Ipratropium Aniwa (Atrovent) 0.5 mg 1X ONCE NEB 02/20/20 19:30 02/20/20 19:31 DC 02/20/20 19:55 Potassium Chloride (Klor-Con) 40 meq 1X ONCE PO 02/20/20 21:15 02/20/20 21:16 DC 02/20/20 22:03 Vital Signs: Vital Signs Date Time Temp Pulse Resp B/P (MAP) Pulse Ox O2 Delivery O2 Flow Rate FiO2 02/20/20 22:30 97 140/65 (90) 100 2.0 02/20/20 22:15 104 144/64 (90) 100 2.0 02/20/20 22:00 100 136/63 (87) 100 2.0 02/20/20 21:45 104 141/63 (89) 100 2.0 02/20/20 21:30 105 20 147/63 (91) 100 2.0 02/20/20 21:13 110 151/66 (94) 100 2.0 02/20/20 20:15 102 22 145/63 (90) 99 Nasal Cannula 2.0 02/20/20 19:55 100 Nasal Cannula 2.0 02/20/20 19:15 23 151/65 (93) 100 Nasal Cannula 2.0 02/20/20 19:01 98.2 103 22 100 Nasal Cannula 2.0 98.2 EKG: EKG: EKG interpreted by me normal sinus rhythm with rate of 99 left axis deviation l eft anterior hemiblock nonspecific ST changes normal intervals [] Radiology/Procedures: Radiology/Procedures: [][facility] [address] [place] [address] IMAGING REPORT Signed PATIENT: JEM LA ACCOUNT: [id number] : 1950 LOCATION: ER AGE: 69 SEX: F EXAM STATUS: PRE ER ORD. PHYSICIAN: HIGINIO CORTES MD REASON: soa PROCEDURE: PORTABLE CHEST 1V Exam: Chest one view INDICATION: Short of air TECHNIQUE: Frontal view of the chest Comparisons: 02/10/2020 FINDINGS: The cardiomediastinal silhouette and pulmonary vessels are within normal limits. Small bilateral pleural effusions. Adjacent strandy opacities. Remaining lungs are clear. IMPRESSION: Small bilateral pleural effusions, with adjacent airspace disease likely atelectasis. Electronically signed by: Toma Martinez MD (02/20/2020 7:22 PM) [id number] DICTATED and SIGNED BY: TOMA MARTINEZ MD DATE: 02/20/20 1922 Course & Med Decision Making: Course & Med Decision Making Pertinent Labs and Imaging studies reviewed. (See chart for details) [] 69-year-old female presents with shortness of breath. Patient has a history of COPD and is wheezing on exam. Patient is clinically stable and improved after treatment but will need further evaluation treatment in the hospital. I feel like her symptoms are more likely due to COPD as opposed to a pulmonary embolism due to the wheezing and nature of the presentation. Patient will be covered for pneumonia due to x-ray findings. Patient is also swab for coronavirus. Discussed with Dr. Beckford will admit. Patty Disclaimer: Patty Disclaimer: This electronic medical record was generated, in whole or in part, using a voice recognition dictation system. Departure Departure Impression: Primary Impression: COPD exacerbation Additional Impression: Dyspnea Disposition: ADMITTED INPATIENT Admitting Physician: SOLE BANEGAS) Condition: IMPROVED Referrals: RUTH AVITIA MD (PCP) Justicifation of Admission Dx: Justifications for Admission: Justification of Admission Dx: Yes HIGINIO CORTES MD Feb 20, 2020 19:16
--- NOTE | 2020-02-20 19:26 | RAD ---
Exam: Chest one view INDICATION: Short of air TECHNIQUE: Frontal view of the chest Comparisons: 02/10/2020 FINDINGS: The cardiomediastinal silhouette and pulmonary vessels are within normal limits. Small bilateral pleural effusions. Adjacent strandy opacities. Remaining lungs are clear. IMPRESSION: Small bilateral pleural effusions, with adjacent airspace disease likely atelectasis. Electronically signed by: Toma Strange MD (02/20/2020 7:22 PM) [id number]
[2020-02-20] MEDS ORDERED: ALBUTEROL SULFATE 2.5 MG/3 ML NEBU. NEB ONE (19:30)
[2020-02-20] MEDS ORDERED: IPRATROPIUM BROMIDE 0.5 MG/2.5 ML NEBU. NEB ONE (19:30)
[2020-02-20 20:03] LABS: BASO % 0 % (0-3); EOS % 0 % (0-3); HEMATOCRIT 30.6 % (36.0-47.0); LYMPH # 0.3 x10^3/uL (1.0-4.8); LYMPH % 9 % (24-48); MEAN CORPUSCULAR HEMOGLOBIN 30 pg (25-35); MEAN CORPUSCULAR HGB CONC 33 g/dL (31-37); MEAN CORPUSCULAR VOLUME 91 fL (79-100); MONO # 0.2 x10^3/uL (0.0-1.1); MONO % 5 % (0-9); NEUT # 3.4 x10^3/uL (1.8-7.7); NEUT % 86 % (31-73); PLATELET COUNT 77 x10^3/uL (140-400); RED BLOOD COUNT 3.35 x10^6/uL (3.50-5.40); RED CELL DISTRIBUTION WIDTH 17.6 % (11.5-14.5)
[2020-02-20 20:11] LABS: CALCIUM 8.1 mg/dL (8.5-10.1); CREATININE 0.6 mg/dL (0.6-1.0); GFR 99.4; POTASSIUM 3.1 mmol/L (3.5-5.1)
[2020-02-20 20:17] LABS: ALBUMIN 2.8 g/dL (3.4-5.0); TOTAL BILIRUBIN 0.4 mg/dL (0.2-1.0); TOTAL PROTEIN 5.5 g/dL (6.4-8.2)
[2020-02-20] MEDS ORDERED: POTASSIUM CHLORIDE 20 MEQ TABLET.ER. PO ONE ×2 (21:15→22:15)
--- NOTE | 2020-02-20 23:37 | NUR ---
Pt. just arrived from ED via Bed w/ COPD and PUI. She is A/O x4 and will make needs known.
[2020-02-21] VITALS (7 sets, daily range): BP systolic 105–155; BP diastolic 43–92
[2020-02-21] MEDS ORDERED: GLEEVEC400 MG PO (04:23)
--- NOTE | 2020-02-21 04:42 | EKG ---
[facility] [address] [place] [address] Test Date: 2020-02-20 Test Time: 19:30:10 Pat Name: JEM LA Department: Room: Gender: F Marketing Coordinator: : 1950 Requested By: HIGINIO CORTES Order Number: [id number] Reading MD: Measurements Intervals [place] Rate: 99 P: 90 RI: 116 QRS: -48 QRSD: 88 T: 66 QT: 354 QTc: 460 Interpretive Statements SINUS RHYTHM ABNORMAL LEFT AXIS DEVIATION LEFT ANTERIOR FASCICULAR BLOCK QRS(T) CONTOUR ABNORMALITY CONSIDER ANTEROSEPTAL MYOCARDIAL DAMAGE ABNORMAL ECG RI6.02 No previous ECG available for comparison
[2020-02-21] MEDS ORDERED: ALBUTEROL SULFATE 2.5 MG/3 ML NEBU. NEB SCH (08:00)
[2020-02-21] MEDS: ALBUTEROL SULFATE 8GM INHALER. INH SCH ×2 (08:51→12:16)
[2020-02-21] MEDS ORDERED: NON FORMULARY ITEM (Albuterol Sulfate (Ventolin Hfa Inhaler) 18 GM) IH SCH (09:00)
[2020-02-21] MEDS ORDERED: AZITHROMYCIN 250 MG TABLET. PO SCH (11:00)
[2020-02-21] MEDS: CALCIUM CARB/VIT D3 500/200 TABLET. PO SCH ×3 (11:00→17:00)
[2020-02-21] MEDS ORDERED: cefTRIAXone IV Push 1 GM VIAL. IVP SCH (11:00)
--- NOTE | 2020-02-21 11:00 | NUR ---
This RN at bedside with Dr. Nguyen while discussing advanced directive with patient. Dr. Nguyen asked patient if she wanted advanced measures taken and patient stated "No, when it is my time, I want to just go home." Code Status updated.
[2020-02-21] MEDS: FUROSEMIDE 20 MG TABLET PO SCH (11:13)
[2020-02-21] MEDS: POTASSIUM CHLORIDE 10 MEQ TABLET.ER. PO SCH (11:13)
[2020-02-21] MEDS: guaiFENesin DM 600/30MG 1 TAB TAB.ER.12H PO SCH ×2 (11:13→21:21)
[2020-02-21] MEDS: predniSONE 20 MG TABLET PO SCH (11:24)
[2020-02-21] MEDS: APIXABAN 5 MG TABLET. PO SCH ×2 (11:24→21:21)
[2020-02-21] MEDS ORDERED: IPRATROPIUM/ALBUTEROL 20/100mcg/INH INHALER. INH SCH (12:00)
[2020-02-21] MEDS ORDERED: ALBUTEROL SULFATE 8GM INHALER. INH PRN (12:00)
--- NOTE | 2020-02-21 12:30 | NUR ---
Pharmacy notified this RN about a known drug interaction between Amiodarone and Azithromycin. Dr. Hinojosa notified. Orders received to stop Azithromycin and start Doxycycline 100mg PO BID.
--- NOTE | 2020-02-21 12:38 | CONS ---
DATE OF CONSULTATION: PULMONARY CONSULTATION ATTENDING PHYSICIAN: Dr. Weber. REASON FOR CONSULTATION: Dyspnea. HISTORY OF PRESENT ILLNESS: The patient 69-year-old who has clinically suspected end-stage COPD, on home oxygen at 2 liters. She has history of lung cancer diagnosed more than 5 years ago. She said she had received radiation and was followed by Dr. Joe Sewell at [facility]. She was brought into the hospital with increased shortness of breath. She was wheezing as well. She had a mild cough. No chest pain, no fever, no chills. No headache, no nausea, vomiting, no diarrhea, no dysuria, no focal weakness. Her chest x-ray was reviewed and it showed volume loss and right lower lobe pleural thickening and persistent pleural effusion and atelectasis. I have been asked to see her for further evaluation. PAST MEDICAL HISTORY: 1. History of COPD, suspect end-stage; history of chronic hypoxic respiratory failure. 2. History of right lung cancer treated with radiation close to 5 years ago. No chemo. 3. Leukemia. PAST SURGICAL HISTORY: Bone marrow aspiration biopsy in January of this year. ALLERGIES: ACETAMINOPHEN AND CODEINE. MEDICATIONS: Reviewed as listed in the MRAD including her inhalers. Antibiotic azithromycin and Rocephin. Eliquis and on prednisone. FAMILY HISTORY: Noncontributory to lungs. SOCIAL HISTORY: Smoked for about 30 years before quitting. REVIEW OF SYSTEMS: Twelve-point system obtained. Pertinent positives discussed in my history of present illness, otherwise noncontributory. All systems that were negative were reviewed as well. PHYSICAL EXAMINATION: VITAL SIGNS: Reviewed. Pulse ox 97% on 2 liters. NECK: Supple. LUNGS: With diminished breath sounds bilaterally. CARDIOVASCULAR: Regular rate and rhythm. ABDOMEN: Soft. EXTREMITIES: With no pitting edema. LABORATORY DATA: Reviewed. White cell count 4.0, hemoglobin 10.0, platelets are 77. BUN 15, creatinine 0.6. IMPRESSION: 1. Dyspnea secondary to acute exacerbation of chronic obstructive pulmonary disease. on home O2 at 2 litres. 2. Acute tracheobronchitis. 3. The patient with history of lung cancer, was not a surgical candidate, treated with radiation about 5 years ago. We will follow up with a noncontrast CT once she is more stable. 4. History of leukemia, details are not available. RECOMMENDATIONS: 1. Discussed with the patient, at this time I will continue with present oxygen. 2. Continue with nebulizers. 3. Continue with empiric antibiotics. 4. Eliquis per PCP. 5. Continue oral prednisone. 6. Noncontrast CT chest once COVID ruled out. 7. Discussed with RN. We will follow along with you. YENIFER BARKER MD DR: MARY/sara JOB#: [id number] / [id number] KATHRINE
[2020-02-21] MEDS: GLEEVEC PO SCH (13:18)
[2020-02-21] MEDS: AMIODARONE HCL 200 MG TABLET. PO SCH (13:18)
[2020-02-21] MEDS: IPRATROPIUM/ALBUTEROL 20/100mcg/INH INHALER. INH SCH ×3 (13:18→21:21)
--- NOTE | 2020-02-21 14:23 | NUR ---
SW following. Reviewed chart and discussed with RN. Pt from home alone. Spoke with pt who stated she has family in the area that assist as needed. Pt has home 02 and is currently on 2l. Pt on oral abx. Pt COVID pending. Pt has had HH from [facility] in the past and would like HH orders on discharge. LIYAH to follow. Addendum: 02/21/20 at 1454 by KARINE PELLETIER Patient Choice of Vendor form completed and initial referral phoned and faxed, , (fax).
[2020-02-21] MEDS: ANTI-COAG MONITOR BY PHARMACY. MC PRN (16:07)
--- NOTE | 2020-02-21 17:17 | PDOC1 ---
History and Physical Date of Admission Date of Admission DATE: 02/21/20 TIME: 9:30am Identification/Chief Complaint Chief Complaint short of breath Source Source: Chart review, Patient History of Present Illness History of Present Illness Ms. Son is a 69 year old female with a history of COPD presents with a 2-day history of shortness of breath. She has cough and dyspena, and feels she needs more breathing treatments, but is getting ruled out for COVID currently. she has symtoms are worse with exertion. Patient received nebulizer prior to arrival with some improvement. no pain, but could not sleep due to dyspnea and cough and she reports she feels terrible Past Medical History Cardiovascular: CAD, HTN Pulmonary: COPD, Pneumonia, Other Heme/Onc: Cancer Musculoskeletal: low back pain, Other Endocrine: Osteoporosis Past Surgical History Past Surgical History: Breast Biopsy, Hysterectomy Social History Smoke: Quit ALCOHOL: rare Drugs: None Current Problem List Problem List Problems Medical Problems: (1) COPD exacerbation Status: Acute (2) Dyspnea Status: Acute Current Medications Current Medications Current Medications Azithromycin 250 ml @ 250 mls/hr 1X ONCE IV Last administered on 02/20/20 19:56; Start 02/20/20 at 19:15; Stop 02/20/20 at 20:14; Status DC Ceftriaxone Sodium (Rocephin) 1 gm 1X ONCE IVP Last administered on 02/20/20 19:49; Start 02/20/20 at 19:15; Stop 02/20/20 at 19:16; Status DC Methylprednisolone Sodium Succinate (SOLU-Medrol 125MG VIAL) 125 mg 1X ONCE IV Last administered on 02/20/20 19:40; Start 02/20/20 at 19:15; Stop 02/20/20 at 19:16; Status DC Albuterol Sulfate (Ventolin Neb Soln) 7.5 mg 1X ONCE NEB Last administered on 02/20/20 19:55; Start 02/20/20 at 19:30; Stop 02/20/20 at 19:31; Status DC Ipratropium [place] (Atrovent) 0.5 mg 1X ONCE NEB Last administered on 02/19 19:55; Start 02/20/20 at 19:30; Stop 02/20/20 at 19:31; Status DC Potassium Chloride (Klor-Con) 40 meq 1X ONCE PO Last administered on 8/10/20at 22:03; Start 02/20/20 at 21:15; Stop 02/20/20 at 21:16; Status DC Potassium Chloride (Klor-Con) 40 meq 1X ONCE PO ; Start 02/20/20 at 22:15; Stop 02/20/20 at 22:36; Status DC Non-Formulary Medication (Albuterol Sulfate (Ventolin Hfa Inhaler)) 18 gm QID IH ; Start 02/21/20 at 09:00; Status UNV Albuterol Sulfate (Ventolin Neb Soln) 2.5 mg RTQID NEB ; Start 02/21/20 at 08:00; Status Cancel Albuterol Sulfate (Ventolin Hfa) 1 puff RTQID INH Last administered on 02/21/20at 12:16; Start 02/21/20 at 08:00; Stop 02/21/20 at 12:25; Status DC Apixaban (Eliquis) 5 mg BID PO Last administered on 02/21/20at 11:24; Start 02/21/20 at 11:00 Diltiazem HCl (Cardizem 24hr Cd) 240 mg DAILY PO Last administered on 02/21/20at 11:25; Start 02/21/20 at 11:00 Furosemide (Lasix) 20 mg DAILY PO Last administered on 02/21/20at 11:13; Start 02/21/20 at 11:00 Albuterol/ Ipratropium (Combivent Respimat 20-100 Mcg) 1 puff RTQID INH ; Start 02/21/20 at 12:00; Stop 02/21/20 at 12:24; Status DC Polyethylene Glycol (miraLAX PACKET) 17 gm QODAY PO ; Start 02/23/20 at 09:00 Amiodarone HCl (Cordarone) 100 mg DAILY PO Last administered on 02/21/20at 13:18; Start 02/21/20 at 13:00 Non-Formulary Medication (Arformoterol Tartrate (Brovana)) 15 mcg BID IH ; Start 02/21/20 at 21:00; Status UNV Calcium/Vitamin D (Oscal D 500mg/ 200uts) 1 tab BIDWMEALS PO ; Start 02/21/20 at 11:00 Guaifenesin (MUCINEX ER with DM) 1 tab BID PO Last administered on 02/21/20at 11:13; Start 02/21/20 at 11:00 Non-Formulary Medication (Imatinib Mesylate (Gleevec)) 400 mg DAILYAC PO Last administered on 02/21/20at 13:18; Start 02/21/20 at 13:00 Potassium Chloride (Klor-Con) 10 meq DAILYWBKFT PO Last administered on 02/21/20at 11:13; Start 02/21/20 at 11:00 Albuterol Sulfate (Ventolin Hfa) 1 puff PRN Q6HRS PRN INH WHEEZES; Start 02/21/20 at 12:00 Prednisone (Prednisone) 60 mg DAILY PO Last administered on 02/21/20at 11:24; Start 02/21/20 at 10:30 Ceftriaxone Sodium (Rocephin) 1 gm Q24H IVP Last administered on 02/21/20at 11:26; Start 02/21/20 at 11:00 Azithromycin (Zithromax) 250 mg DAILY PO Last administered on 02/21/20at 11:25; Start 02/21/20 at 11:00; Stop 02/21/20 at 12:43; Status DC Albuterol/ Ipratropium (Combivent Respimat 20-100 Mcg) 1 puff RTQID INH Last administered on 02/21/20at 16:00; Start 02/21/20 at 12:30 Doxycycline Hyclate (Vibra-Tab) 100 mg BID PO ; Start 02/21/20 at 21:00 Info (Anti-Coagulation Monitoring By Pharmacy) 1 each PRN DAILY PRN MC SEE COMMENTS Last administered on 02/21/20at 16:07; Start 02/21/20 at 16:15 Active Scripts Active Ventolin Hfa Inhaler (Albuterol Sulfate) 18 Gm Hfa.aer.ad 18 Gm IH QID Reported Gleevec (Imatinib Mesylate) 400 Mg Tablet 400 Mg PO DAILYAC Advil (Ibuprofen) 200 Mg Tablet 200 Mg PO PRN PRN Budesonide 0.5 Mg/2 Ml Ampul.neb 1 Vial NEB BID Duoneb 0.5-3(2.5) Mg/3 Ml (Albuterol/Ipratropium) 3 Ml Ampul.neb 3 Ml NEB QID Miralax (Polyethylene Glycol 3350) 17 Gm Powd.pack 1 Packet PO QODAY 2 Days dissolve in water Mucus Relief ER (Guaifenesin) 1,200 Mg Tab.er.12h 1,200 Mg PO DAILY Alendronate Sodium 70 Mg Tablet 1 Tab PO WEEKLY Eliquis (Apixaban) 5 Mg Tablet 5 Mg PO BID Restart tomorrow 01/12/2020 [Vitamin D2] 50,000 Units PO WEEKLY Furosemide 20 Mg Tablet 1 Tab PO DAILY Klor-Con 10 (Potassium Chloride) 10 Meq Tablet.er 1 Tab PO DAILY 30 Days Diltiazem 24Hr Cd (Diltiazem HCl) 240 Mg Cap.er.24h 1 Cap PO DAILY 30 Days Amiodarone Hcl 100 Mg Tablet 1 Tab PO DAILY 30 Days Calcium 600 + Vit D Caplet (Calcium Carbonate/Vitamin D3) 1 Each Tablet 1 Tab PO BID 30 Days Brovana (Arformoterol Tartrate) 15 Mcg/2 Ml Vial.neb 15 Mcg IH BID Levalbuterol Concentrate (Levalbuterol Hcl) 1.25 Mg/0.5 Ml Vial.neb 1.25 Mg IH QID Allergies Allergies: Coded Allergies: acetaminophen (Verified Allergy, Severe, Hallucinations, 01/11/20) oxycodone (Verified Allergy, Severe, Hallucinations, 01/11/20) ROS General: YES: Chills, Fatigue, Malaise PSYCHOLOGICAL ROS: YES: Irritablity, Sleep disturbances; No: Anxiety, Behavioral Disorder, Concentration difficultie, Decreased libido, Depression, Disorientation, Hallucinations, Hostility, Memory difficult ies, Mood Swings, Obsessive thoughts, Other Eyes: No Blurry vision, No Decreased vision, No Double vision, No Dry eyes, No Excessive tearing, No Eye Pain, No Itchy Eyes, No Loss of vision, No Photophobia, No Scotomata, No Uses contacts, No Uses glasses, No Other HEENT: No: Heacaches, Visual Changes, Hearing change, Nasal congestion, Nasal discharge, Oral lesions, Sinus pain, Sore Throat, Epistaxis, Sneezing, Snoring, Tinnitus, Vertigo, Vocal changes, Other Respiratory: YES: Cough, Shortness of breath, SOB with excertion, Tachypnea, Wheezing; No: Hemoptysis, Orthopnea, Pleuritic Pain, Sputum Changes, Stridor, Other Cardiovascular: No Chest Pain, No Palpitations, No Orthopnea, No Paroxysmal Noc . Dyspnea, No Edema, No Lt Headedness, No Other Gastrointestinal: No Nausea, No Vomiting, No Abdominal Pain, No Diarrhea, No Constipation, No Melena, No Hematochezia, No Other Musculoskeletal: No Gait Disturbance, No Joint Pain, No Joint Stiffness, No Joint Swelling, No Muscle Pain, No Muscular Weakness, No Pain In:, No Swelling In:, No Other Neurological: No Behavorial Changes, No Bowel/Bladder ControlChng, No Confusion, No Dizziness, No Gait Disturbance, No Headaches, No Impaired Coord/balance, No Memory Loss, No Numbness/Tingling, No Seizures, No Speech Problems, No Tremors, No Visual Changes, No Weakness, No Other Skin: Yes Dry Skin Physical Exam General: Alert, Oriented X3, Cooperative, mild distress HEENT: PERRLA, EOMI Lungs: Other (rales, low volume, no crackles) Abdomen: Normal bowel sounds, Soft Extremities: No cyanosis, No edema, Normal pulses Skin: No breakdown Neuro: Normal speech Psych/Mental Status: Mental status NL, Mood NL Vitals Vitals Vital Signs Date Time Temp Pulse Resp B/P (MAP) Pulse Ox O2 Delivery O2 Flow Rate FiO2 02/21/20 15:00 97.4 100 18 155/60 (91) 100 Nasal Cannula 2.0 97.4 Labs Labs Laboratory Tests Test 02/20/20 19:33 White Blood Count 4.0 x10^3/uL (4.0-11.0) Red Blood Count 3.35 x10^6/uL (3.50-5.40) Hemoglobin 10.0 g/dL (12.0-15.5) Hematocrit 30.6 % (36.0-47.0) Mean Corpuscular Volume 91 fL (79-100) Mean Corpuscular Hemoglobin 30 pg (25-35) Mean Corpuscular Hemoglobin Concent 33 g/dL (31-37) Red Cell Distribution Width 17.6 % (11.5-14.5) Platelet Count 77 x10^3/uL (140-400) Neutrophils (%) (Auto) 86 % (31-73) Lymphocytes (%) (Auto) 9 % (24-48) Monocytes (%) (Auto) 5 % (0-9) Eosinophils (%) (Auto) 0 % (0-3) Basophils (%) (Auto) 0 % (0-3) Neutrophils # (Auto) 3.4 x10^3/uL (1.8-7.7) Lymphocytes # (Auto) 0.3 x10^3/uL (1.0-4.8) Monocytes # (Auto) 0.2 x10^3/uL (0.0-1.1) Eosinophils # (Auto) 0.0 x10^3/uL (0.0-0.7) Basophils # (Auto) 0.0 x10^3/uL (0.0-0.2) Sodium Level 139 mmol/L (136-145) Potassium Level 3.1 mmol/L (3.5-5.1) Chloride Level 100 mmol/L (98-107) Carbon Dioxide Level 37 mmol/L (21-32) Anion Gap 2 (6-14) Blood Urea Nitrogen 15 mg/dL (7-20) Creatinine 0.6 mg/dL (0.6-1.0) Estimated GFR (Cockcroft-Gault) 99.4 BUN/Creatinine Ratio 25 (6-20) Glucose Level 122 mg/dL (70-99) Lactic Acid Level 0.7 mmol/L (0.4-2.0) Calcium Level 8.1 mg/dL (8.5-10.1) Total Bilirubin 0.4 mg/dL (0.2-1.0) Aspartate Amino Transf (AST/SGOT) 17 U/L (15-37) Alanine Aminotransferase (ALT/SGPT) 21 U/L (14-59) Alkaline Phosphatase 88 U/L (46-116) Troponin I Quantitative < 0.017 ng/mL (0.000-0.055) KN-Zkn-M-Type Natriuretic Peptide 218 pg/mL (0-124) Total Protein 5.5 g/dL (6.4-8.2) Albumin 2.8 g/dL (3.4-5.0) Albumin/Globulin Ratio 1.0 (1.0-1.7) Laboratory Tests Test 02/20/20 19:33 White Blood Count 4.0 x10^3/uL (4.0-11.0) Red Blood Count 3.35 x10^6/uL (3.50-5.40) Hemoglobin 10.0 g/dL (12.0-15.5) Hematocrit 30.6 % (36.0-47.0) Mean Corpuscular Volume 91 fL (79-100) Mean Corpuscular Hemoglobin 30 pg (25-35) Mean Corpuscular Hemoglobin Concent 33 g/dL (31-37) Red Cell Distribution Width 17.6 % (11.5-14.5) Platelet Count 77 x10^3/uL (140-400) Neutrophils (%) (Auto) 86 % (31-73) Lymphocytes (%) (Auto) 9 % (24-48) Monocytes (%) (Auto) 5 % (0-9) Eosinophils (%) (Auto) 0 % (0-3) Basophils (%) (Auto) 0 % (0-3) Neutrophils # (Auto) 3.4 x10^3/uL (1.8-7.7) Lymphocytes # (Auto) 0.3 x10^3/uL (1.0-4.8) Monocytes # (Auto) 0.2 x10^3/uL (0.0-1.1) Eosinophils # (Auto) 0.0 x10^3/uL (0.0-0.7) Basophils # (Auto) 0.0 x10^3/uL (0.0-0.2) Sodium Level 139 mmol/L (136-145) Potassium Level 3.1 mmol/L (3.5-5.1) Chloride Level 100 mmol/L (98-107) Carbon Dioxide Level 37 mmol/L (21-32) Anion Gap 2 (6-14) Blood Urea Nitrogen 15 mg/dL (7-20) Creatinine 0.6 mg/dL (0.6-1.0) Estimated GFR (Cockcroft-Gault) 99.4 BUN/Creatinine Ratio 25 (6-20) Glucose Level 122 mg/dL (70-99) Lactic Acid Level 0.7 mmol/L (0.4-2.0) Calcium Level 8.1 mg/dL (8.5-10.1) Total Bilirubin 0.4 mg/dL (0.2-1.0) Aspartate Amino Transf (AST/SGOT) 17 U/L (15-37) Alanine Aminotransferase (ALT/SGPT) 21 U/L (14-59) Alkaline Phosphatase 88 U/L (46-116) Troponin I Quantitative < 0.017 ng/mL (0.000-0.055) OZ-Vej-M-Type Natriuretic Peptide 218 pg/mL (0-124) Total Protein 5.5 g/dL (6.4-8.2) Albumin 2.8 g/dL (3.4-5.0) Albumin/Globulin Ratio 1.0 (1.0-1.7) VTE Prophylaxis Ordered VTE Prophylaxis Devices: No VTE Pharmacological Prophylaxi: Yes Assessment/Plan Assessment/Plan COPD acute exacerbation, steroids, nebs, abx, PULM consult Admitted to COVID-19 unit and seen with full PPE, to r./o 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
[2020-02-21] MEDS ORDERED: NON FORMULARY ITEM (Arformoterol Tartrate (Brovana) 15 MCG) IH SCH (21:00)
[2020-02-21] MEDS: DOXYCYCLINE HYCLATE 100 MG TABLET PO SCH (21:21)
[2020-02-22] VITALS (7 sets, daily range): BP systolic 123–162; BP diastolic 46–73
[2020-02-22 04:42] LABS: BASO % 0 % (0-3); EOS % 0 % (0-3); HEMATOCRIT 27.7 % (36.0-47.0); HEMOGLOBIN 9.4 g/dL (12.0-15.5); LYMPH # 0.1 x10^3/uL (1.0-4.8); LYMPH % 3 % (24-48); MEAN CORPUSCULAR HEMOGLOBIN 31 pg (25-35); MEAN CORPUSCULAR HGB CONC 34 g/dL (31-37); MEAN CORPUSCULAR VOLUME 91 fL (79-100); MONO # 0.1 x10^3/uL (0.0-1.1); MONO % 5 % (0-9); NEUT # 2.7 x10^3/uL (1.8-7.7); NEUT % 92 % (31-73); PLATELET COUNT 78 x10^3/uL (140-400); RED BLOOD COUNT 3.03 x10^6/uL (3.50-5.40); RED CELL DISTRIBUTION WIDTH 17.8 % (11.5-14.5); WHITE BLOOD COUNT 2.9 x10^3/uL (4.0-11.0)
[2020-02-22 05:34] LABS: ALBUMIN 2.6 g/dL (3.4-5.0); ALBUMIN/GLOBULIN RATIO 0.9 (1.0-1.7); CALCIUM 7.9 mg/dL (8.5-10.1); CREATININE 0.7 mg/dL (0.6-1.0); GFR 83.2; POTASSIUM 3.9 mmol/L (3.5-5.1); TOTAL BILIRUBIN 0.4 mg/dL (0.2-1.0); TOTAL PROTEIN 5.4 g/dL (6.4-8.2)
[2020-02-22] MEDS: IPRATROPIUM/ALBUTEROL 20/100mcg/INH INHALER. INH SCH ×2 (07:57→12:00)
[2020-02-22] MEDS: GLEEVEC PO SCH (07:57)
[2020-02-22] MEDS: POTASSIUM CHLORIDE 10 MEQ TABLET.ER. PO SCH (07:58)
[2020-02-22] MEDS: CALCIUM CARB/VIT D3 500/200 TABLET. PO SCH ×2 (07:58→17:39)
--- NOTE | 2020-02-22 08:20 | NUR ---
Pt triggered positive sepsis screening. This RN called and notified LUCHO Gillespie in ICU and Dr. Pierre. Orders received from Dr. Pierre to discontinue Rocephin and start pt on Zosyn per pharmacy and consult infectious disease.
--- NOTE | 2020-02-22 08:43 | PDOC ---
PULMONARY PROGRESS NOTES DATE: 02/22/20 TIME: 08:42 Subjective feels better on 2 litres O2 Vitals Vital Signs Date Time Temp Pulse Resp B/P (MAP) Pulse Ox O2 Delivery O2 Flow Rate FiO2 02/22/20 08:06 Nasal Cannula 2.0 02/22/20 07:30 96.9 94 24 148/55 (86) 98 96.9 General: Alert, No acute distress Lungs: Other (decrease bs) Cardiovascular: S1 Abdomen: Soft Neuro Exam: Alert Extremities: No Edema Skin: Warm Labs Laboratory Tests Test 02/20/20 19:33 02/20/20 19:35 02/22/20 04:15 White Blood Count 4.0 x10^3/uL (4.0-11.0) 2.9 x10^3/uL (4.0-11.0) Red Blood Count 3.35 x10^6/uL (3.50-5.40) 3.03 x10^6/uL (3.50-5.40) Hemoglobin 10.0 g/dL (12.0-15.5) 9.4 g/dL (12.0-15.5) Hematocrit 30.6 % (36.0-47.0) 27.7 % (36.0-47.0) Mean Corpuscular Volume 91 fL (79-100) 91 fL (79-100) Mean Corpuscular Hemoglobin 30 pg (25-35) 31 pg (25-35) Mean Corpuscular Hemoglobin Concent 33 g/dL (31-37) 34 g/dL (31-37) Red Cell Distribution Width 17.6 % (11.5-14.5) 17.8 % (11.5-14.5) Platelet Count 77 x10^3/uL (140-400) 78 x10^3/uL (140-400) Neutrophils (%) (Auto) 86 % (31-73) 92 % (31-73) Lymphocytes (%) (Auto) 9 % (24-48) 3 % (24-48) Monocytes (%) (Auto) 5 % (0-9) 5 % (0-9) Eosinophils (%) (Auto) 0 % (0-3) 0 % (0-3) Basophils (%) (Auto) 0 % (0-3) 0 % (0-3) Neutrophils # (Auto) 3.4 x10^3/uL (1.8-7.7) 2.7 x10^3/uL (1.8-7.7) Lymphocytes # (Auto) 0.3 x10^3/uL (1.0-4.8) 0.1 x10^3/uL (1.0-4.8) Monocytes # (Auto) 0.2 x10^3/uL (0.0-1.1) 0.1 x10^3/uL (0.0-1.1) Eosinophils # (Auto) 0.0 x10^3/uL (0.0-0.7) 0.0 x10^3/uL (0.0-0.7) Basophils # (Auto) 0.0 x10^3/uL (0.0-0.2) 0.0 x10^3/uL (0.0-0.2) Sodium Level 139 mmol/L (136-145) 140 mmol/L (136-145) Potassium Level 3.1 mmol/L (3.5-5.1) 3.9 mmol/L (3.5-5.1) Chloride Level 100 mmol/L (98-107) 101 mmol/L (98-107) Carbon Dioxide Level 37 mmol/L (21-32) 36 mmol/L (21-32) Anion Gap 2 (6-14) 3 (6-14) Blood Urea Nitrogen 15 mg/dL (7-20) 13 mg/dL (7-20) Creatinine 0.6 mg/dL (0.6-1.0) 0.7 mg/dL (0.6-1.0) Estimated GFR (Cockcroft-Gault) 99.4 83.2 BUN/Creatinine Ratio 25 (6-20) 19 (6-20) Glucose Level 122 mg/dL (70-99) 120 mg/dL (70-99) Lactic Acid Level 0.7 mmol/L (0.4-2.0) Calcium Level 8.1 mg/dL (8.5-10.1) 7.9 mg/dL (8.5-10.1) Total Bilirubin 0.4 mg/dL (0.2-1.0) 0.4 mg/dL (0.2-1.0) Aspartate Amino Transf (AST/SGOT) 17 U/L (15-37) 19 U/L (15-37) Alanine Aminotransferase (ALT/SGPT) 21 U/L (14-59) 21 U/L (14-59) Alkaline Phosphatase 88 U/L (46-116) 85 U/L (46-116) Troponin I Quantitative < 0.017 ng/mL (0.000-0.055) YT-Bqh-T-Type Natriuretic Peptide 218 pg/mL (0-124) Total Protein 5.5 g/dL (6.4-8.2) 5.4 g/dL (6.4-8.2) Albumin 2.8 g/dL (3.4-5.0) 2.6 g/dL (3.4-5.0) Albumin/Globulin Ratio 1.0 (1.0-1.7) 0.9 (1.0-1.7) Coronavirus (PCR) Not detected (Not Detected) Laboratory Tests Test 02/22/20 04:15 White Blood Count 2.9 x10^3/uL (4.0-11.0) Red Blood Count 3.03 x10^6/uL (3.50-5.40) Hemoglobin 9.4 g/dL (12.0-15.5) Hematocrit 27.7 % (36.0-47.0) Mean Corpuscular Volume 91 fL (79-100) Mean Corpuscular Hemoglobin 31 pg (25-35) Mean Corpuscular Hemoglobin Concent 34 g/dL (31-37) Red Cell Distribution Width 17.8 % (11.5-14.5) Platelet Count 78 x10^3/uL (140-400) Neutrophils (%) (Auto) 92 % (31-73) Lymphocytes (%) (Auto) 3 % (24-48) Monocytes (%) (Auto) 5 % (0-9) Eosinophils (%) (Auto) 0 % (0-3) Basophils (%) (Auto) 0 % (0-3) Neutrophils # (Auto) 2.7 x10^3/uL (1.8-7.7) Lymphocytes # (Auto) 0.1 x10^3/uL (1.0-4.8) Monocytes # (Auto) 0.1 x10^3/uL (0.0-1.1) Eosinophils # (Auto) 0.0 x10^3/uL (0.0-0.7) Basophils # (Auto) 0.0 x10^3/uL (0.0-0.2) Sodium Level 140 mmol/L (136-145) Potassium Level 3.9 mmol/L (3.5-5.1) Chloride Level 101 mmol/L (98-107) Carbon Dioxide Level 36 mmol/L (21-32) Anion Gap 3 (6-14) Blood Urea Nitrogen 13 mg/dL (7-20) Creatinine 0.7 mg/dL (0.6-1.0) Estimated GFR (Cockcroft-Gault) 83.2 BUN/Creatinine Ratio 19 (6-20) Glucose Level 120 mg/dL (70-99) Calcium Level 7.9 mg/dL (8.5-10.1) Total Bilirubin 0.4 mg/dL (0.2-1.0) Aspartate Amino Transf (AST/SGOT) 19 U/L (15-37) Alanine Aminotransferase (ALT/SGPT) 21 U/L (14-59) Alkaline Phosphatase 85 U/L (46-116) Total Protein 5.4 g/dL (6.4-8.2) Albumin 2.6 g/dL (3.4-5.0) Albumin/Globulin Ratio 0.9 (1.0-1.7) Medications Active Scripts Medications Dose Route/Sig Max Daily Dose Days Date Category Dose Instructions Gleevec (Imatinib Mesylate) 400 Mg Tablet 400 Mg PO DAILYAC 02/21/20 Reported Advil (Ibuprofen) 200 Mg Tablet 200 Mg PO PRN PRN 01/11/20 Reported Budesonide 0.5 Mg/2 Ml Ampul.neb 1 Vial NEB BID 01/11/20 Reported Duoneb 0.5-3(2.5) Mg/3 Ml (Albuterol/Ipratropium) 3 Ml Ampul.neb 3 Ml NEB QID 01/11/20 Reported Miralax (Polyethylene Glycol 3350) 17 Gm Powd.pack 1 Packet PO QODAY 2 01/11/20 Reported dissolve in water Mucus Relief ER (Guaifenesin) 1,200 Mg Tab.er.12h 1,200 Mg PO DAILY 01/11/20 Reported Alendronate Sodium 70 Mg Tablet 1 Tab PO WEEKLY 01/11/20 Reported Eliquis (Apixaban) 5 Mg Tablet 5 Mg PO BID 01/11/20 Reported Restart tomorrow 01/12/2020 [Vitamin D2] 50,000 Units PO WEEKLY 01/11/20 Reported Furosemide 20 Mg Tablet 1 Tab PO DAILY 01/11/20 Reported Klor-Con 10 (Potassium Chloride) 10 Meq Tablet.er 1 Tab PO DAILY 30 01/11/20 Reported Diltiazem 24Hr Cd (Diltiazem HCl) 240 Mg Cap.er.24h 1 Cap PO DAILY 30 01/11/20 Reported Amiodarone Hcl 100 Mg Tablet 1 Tab PO DAILY 30 01/11/20 Reported Calcium 600 + Vit D Caplet (Calcium Carbonate/Vitamin D3) 1 Each Tablet 1 Tab PO BID 30 01/11/20 Reported Ventolin Hfa Inhaler (Albuterol Sulfate) 18 Gm Hfa.aer.ad 18 Gm IH QID 10/13/13 Rx Brovana (Arformoterol Tartrate) 15 Mcg/2 Ml Vial.neb 15 Mcg IH BID 10/11/13 Reported Levalbuterol Concentrate (Levalbuterol Hcl) 1.25 Mg/0.5 Ml Vial.neb 1.25 Mg IH QID 06/24/13 Reported Comments CXR: IMPRESSION: Small bilateral pleural effusions, with adjacent airspace disease likely atelectasis. Impression . IMPRESSION: 1. Dyspnea secondary to acute exacerbation of chronic obstructive pulmonary disease. on home O2 at 2 litres. 2. Acute tracheobronchitis. 3. The patient with history of lung cancer, was not a surgical candidate, treated with radiation about 5 years ago. We will follow up with a noncontrast CT once she is more stable. 4. History of leukemia, details are not available. Plan . RECOMMENDATIONS: 1. Clinically improving. I will continue with present oxygen. 2. Continue with nebulizers. 3. Continue with empiric antibiotics. 4. Eliquis per PCP. 5. Continue oral prednisone. 6. she wants to hold off on CT chest .COVID ruled out. 7. Discussed with YENIFER ADRIAN MD Feb 22, 2020 08:43
[2020-02-22] MEDS ORDERED: PIP/TAZO PER PHARMACY MC PRN (08:45)
[2020-02-22 09:48] LABS: % BANDS 1 % (0-9); % LYMPHS 4 % (24-48); % MONOS 5 % (0-10); % SEGS 90 % (35-66)
--- NOTE | 2020-02-22 10:15 | PDOC ---
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 Continue with empiric antibiotics. Eliquis Continue oral prednisone. Justicifation of Admission Dx: Justicifation of Admission Dx: Justifications for Admission: Justification of Admission Dx: Yes History of Present Illness History of Present Illness Identification/Chief Complaint Chief Complaint short of breath Source Source: Chart review, Patient History of Present Illness History of Present Illness Ms. Son is a 69 year old female with a history of COPD presents with a 2-day history of shortness of breath. She has cough and dyspena, and feels she needs more breathing treatments, but is getting ruled out for COVID currently. NEG she has symtoms are worse with exertion. Patient received nebulizer prior to arrival with some improvement. no pain, Past Medical History Cardiovascular: CAD, HTN Pulmonary: COPD, Pneumonia, Other Heme/Onc: Cancer Musculoskeletal: low back pain, Other Endocrine: Osteoporosis Past Surgical History Past Surgical History: Breast Biopsy, Hysterectomy Social History Smoke: Quit ALCOHOL: rare Drugs: None Vitals Vitals Vital Signs Date Time Temp Pulse Resp B/P (MAP) Pulse Ox O2 Delivery O2 Flow Rate FiO2 02/22/20 08:06 Nasal Cannula 2.0 02/22/20 07:30 96.9 94 24 148/55 (86) 98 96.9 Physical Exam General: Alert, Oriented X3, Cooperative, No acute distress Heart: Regular rate, Normal S1 Lungs: Clear, Other Abdomen: Normal bowel sounds, Soft Extremities: No clubbing, No cyanosis, No edema, Normal pulses Skin: No breakdown Labs LABS Laboratory Tests Test 02/22/20 04:15 White Blood Count 2.9 x10^3/uL (4.0-11.0) Red Blood Count 3.03 x10^6/uL (3.50-5.40) Hemoglobin 9.4 g/dL (12.0-15.5) Hematocrit 27.7 % (36.0-47.0) Mean Corpuscular Volume 91 fL (79-100) Mean Corpuscular Hemoglobin 31 pg (25-35) Mean Corpuscular Hemoglobin Concent 34 g/dL (31-37) Red Cell Distribution Width 17.8 % (11.5-14.5) Platelet Count 78 x10^3/uL (140-400) Neutrophils (%) (Auto) 92 % (31-73) Lymphocytes (%) (Auto) 3 % (24-48) Monocytes (%) (Auto) 5 % (0-9) Eosinophils (%) (Auto) 0 % (0-3) Basophils (%) (Auto) 0 % (0-3) Neutrophils # (Auto) 2.7 x10^3/uL (1.8-7.7) Lymphocytes # (Auto) 0.1 x10^3/uL (1.0-4.8) Monocytes # (Auto) 0.1 x10^3/uL (0.0-1.1) Eosinophils # (Auto) 0.0 x10^3/uL (0.0-0.7) Basophils # (Auto) 0.0 x10^3/uL (0.0-0.2) Segmented Neutrophils % 90 % (35-66) Band Neutrophils % 1 % (0-9) Lymphocytes % 4 % (24-48) Monocytes % 5 % (0-10) Basophilic Stippling Present Sodium Level 140 mmol/L (136-145) Potassium Level 3.9 mmol/L (3.5-5.1) Chloride Level 101 mmol/L (98-107) Carbon Dioxide Level 36 mmol/L (21-32) Anion Gap 3 (6-14) Blood Urea Nitrogen 13 mg/dL (7-20) Creatinine 0.7 mg/dL (0.6-1.0) Estimated GFR (Cockcroft-Gault) 83.2 BUN/Creatinine Ratio 19 (6-20) Glucose Level 120 mg/dL (70-99) Calcium Level 7.9 mg/dL (8.5-10.1) Total Bilirubin 0.4 mg/dL (0.2-1.0) Aspartate Amino Transf (AST/SGOT) 19 U/L (15-37) Alanine Aminotransferase (ALT/SGPT) 21 U/L (14-59) Alkaline Phosphatase 85 U/L (46-116) Total Protein 5.4 g/dL (6.4-8.2) Albumin 2.6 g/dL (3.4-5.0) Albumin/Globulin Ratio 0.9 (1.0-1.7) Assessment and Plan Assessmemt and Plan Problems Medical Problems: (1) COPD exacerbation Status: Acute (2) Dyspnea Status: Acute Comment Review of Relevant I have reviewed the following items la (where applicable) has been applied. Labs Laboratory Tests Test 02/20/20 19:33 02/20/20 19:35 02/22/20 04:15 White Blood Count 4.0 x10^3/uL (4.0-11.0) 2.9 x10^3/uL (4.0-11.0) Red Blood Count 3.35 x10^6/uL (3.50-5.40) 3.03 x10^6/uL (3.50-5.40) Hemoglobin 10.0 g/dL (12.0-15.5) 9.4 g/dL (12.0-15.5) Hematocrit 30.6 % (36.0-47.0) 27.7 % (36.0-47.0) Mean Corpuscular Volume 91 fL (79-100) 91 fL (79-100) Mean Corpuscular Hemoglobin 30 pg (25-35) 31 pg (25-35) Mean Corpuscular Hemoglobin Concent 33 g/dL (31-37) 34 g/dL (31-37) Red Cell Distribution Width 17.6 % (11.5-14.5) 17.8 % (11.5-14.5) Platelet Count 77 x10^3/uL (140-400) 78 x10^3/uL (140-400) Neutrophils (%) (Auto) 86 % (31-73) 92 % (31-73) Lymphocytes (%) (Auto) 9 % (24-48) 3 % (24-48) Monocytes (%) (Auto) 5 % (0-9) 5 % (0-9) Eosinophils (%) (Auto) 0 % (0-3) 0 % (0-3) Basophils (%) (Auto) 0 % (0-3) 0 % (0-3) Neutrophils # (Auto) 3.4 x10^3/uL (1.8-7.7) 2.7 x10^3/uL (1.8-7.7) Lymphocytes # (Auto) 0.3 x10^3/uL (1.0-4.8) 0.1 x10^3/uL (1.0-4.8) Monocytes # (Auto) 0.2 x10^3/uL (0.0-1.1) 0.1 x10^3/uL (0.0-1.1) Eosinophils # (Auto) 0.0 x10^3/uL (0.0-0.7) 0.0 x10^3/uL (0.0-0.7) Basophils # (Auto) 0.0 x10^3/uL (0.0-0.2) 0.0 x10^3/uL (0.0-0.2) Sodium Level 139 mmol/L (136-145) 140 mmol/L (136-145) Potassium Level 3.1 mmol/L (3.5-5.1) 3.9 mmol/L (3.5-5.1) Chloride Level 100 mmol/L (98-107) 101 mmol/L (98-107) Carbon Dioxide Level 37 mmol/L (21-32) 36 mmol/L (21-32) Anion Gap 2 (6-14) 3 (6-14) Blood Urea Nitrogen 15 mg/dL (7-20) 13 mg/dL (7-20) Creatinine 0.6 mg/dL (0.6-1.0) 0.7 mg/dL (0.6-1.0) Estimated GFR (Cockcroft-Gault) 99.4 83.2 BUN/Creatinine Ratio 25 (6-20) 19 (6-20) Glucose Level 122 mg/dL (70-99) 120 mg/dL (70-99) Lactic Acid Level 0.7 mmol/L (0.4-2.0) Calcium Level 8.1 mg/dL (8.5-10.1) 7.9 mg/dL (8.5-10.1) Total Bilirubin 0.4 mg/dL (0.2-1.0) 0.4 mg/dL (0.2-1.0) Aspartate Amino Transf (AST/SGOT) 17 U/L (15-37) 19 U/L (15-37) Alanine Aminotransferase (ALT/SGPT) 21 U/L (14-59) 21 U/L (14-59) Alkaline Phosphatase 88 U/L (46-116) 85 U/L (46-116) Troponin I Quantitative < 0.017 ng/mL (0.000-0.055) RC-Ttz-S-Type Natriuretic Peptide 218 pg/mL (0-124) Total Protein 5.5 g/dL (6.4-8.2) 5.4 g/dL (6.4-8.2) Albumin 2.8 g/dL (3.4-5.0) 2.6 g/dL (3.4-5.0) Albumin/Globulin Ratio 1.0 (1.0-1.7) 0.9 (1.0-1.7) Coronavirus (PCR) Not detected (Not Detected) Segmented Neutrophils % 90 % (35-66) Band Neutrophils % 1 % (0-9) Lymphocytes % 4 % (24-48) Monocytes % 5 % (0-10) Basophilic Stippling Present Laboratory Tests Test 02/22/20 04:15 White Blood Count 2.9 x10^3/uL (4.0-11.0) Red Blood Count 3.03 x10^6/uL (3.50-5.40) Hemoglobin 9.4 g/dL (12.0-15.5) Hematocrit 27.7 % (36.0-47.0) Mean Corpuscular Volume 91 fL (79-100) Mean Corpuscular Hemoglobin 31 pg (25-35) Mean Corpuscular Hemoglobin Concent 34 g/dL (31-37) Red Cell Distribution Width 17.8 % (11.5-14.5) Platelet Count 78 x10^3/uL (140-400) Neutrophils (%) (Auto) 92 % (31-73) Lymphocytes (%) (Auto) 3 % (24-48) Monocytes (%) (Auto) 5 % (0-9) Eosinophils (%) (Auto) 0 % (0-3) Basophils (%) (Auto) 0 % (0-3) Neutrophils # (Auto) 2.7 x10^3/uL (1.8-7.7) Lymphocytes # (Auto) 0.1 x10^3/uL (1.0-4.8) Monocytes # (Auto) 0.1 x10^3/uL (0.0-1.1) Eosinophils # (Auto) 0.0 x10^3/uL (0.0-0.7) Basophils # (Auto) 0.0 x10^3/uL (0.0-0.2) Segmented Neutrophils % 90 % (35-66) Band Neutrophils % 1 % (0-9) Lymphocytes % 4 % (24-48) Monocytes % 5 % (0-10) Basophilic Stippling Present Sodium Level 140 mmol/L (136-145) Potassium Level 3.9 mmol/L (3.5-5.1) Chloride Level 101 mmol/L (98-107) Carbon Dioxide Level 36 mmol/L (21-32) Anion Gap 3 (6-14) Blood Urea Nitrogen 13 mg/dL (7-20) Creatinine 0.7 mg/dL (0.6-1.0) Estimated GFR (Cockcroft-Gault) 83.2 BUN/Creatinine Ratio 19 (6-20) Glucose Level 120 mg/dL (70-99) Calcium Level 7.9 mg/dL (8.5-10.1) Total Bilirubin 0.4 mg/dL (0.2-1.0) Aspartate Amino Transf (AST/SGOT) 19 U/L (15-37) Alanine Aminotransferase (ALT/SGPT) 21 U/L (14-59) Alkaline Phosphatase 85 U/L (46-116) Total Protein 5.4 g/dL (6.4-8.2) Albumin 2.6 g/dL (3.4-5.0) Albumin/Globulin Ratio 0.9 (1.0-1.7) Microbiology 02/20/20 Blood Culture - Preliminary, Resulted NO GROWTH AFTER 1 DAY Medications Current Medications Azithromycin 250 ml @ 250 mls/hr 1X ONCE IV Last administered on 02/20/20at 19:56; Start 02/20/20 at 19:15; Stop 02/20/20 at 20:14; Status DC Ceftriaxone Sodium (Rocephin) 1 gm 1X ONCE IVP Last administered on 02/20/20at 19:49; Start 02/20/20 at 19:15; Stop 02/20/20 at 19:16; Status DC Methylprednisolone Sodium Succinate (SOLU-Medrol 125MG VIAL) 125 mg 1X ONCE IV Last administered on 02/20/20at 19:40; Start 02/20/20 at 19:15; Stop 02/20/20 at 19:16; Status DC Albuterol Sulfate (Ventolin Neb Soln) 7.5 mg 1X ONCE NEB Last administered on 02/20/20at 19:55; Start 02/20/20 at 19:30; Stop 02/20/20 at 19:31; Status DC Ipratropium [place] (Atrovent) 0.5 mg 1X ONCE NEB Last administered on 02/20/20at 19:55; Start 02/20/20 at 19:30; Stop 02/20/20 at 19:31; Status DC Potassium Chloride (Klor-Con) 40 meq 1X ONCE PO Last administered on 02/20/20at 22:03; Start 02/20/20 at 21:15; Stop 02/20/20 at 21:16; Status DC Potassium Chloride (Klor-Con) 40 meq 1X ONCE PO ; Start 02/20/20 at 22:15; Stop 02/20/20 at 22:36; Status DC Non-Formulary Medication (Albuterol Sulfate (Ventolin Hfa Inhaler)) 18 gm QID IH ; Start 02/21/20 at 09:00; Status UNV Albuterol Sulfate (Ventolin Neb Soln) 2.5 mg RTQID NEB ; Start 02/21/20 at 08:00; Status Cancel Albuterol Sulfate (Ventolin Hfa) 1 puff RTQID INH Last administered on 02/21/20at 12:16; Start 02/21/20 at 08:00; Stop 02/21/20 at 12:25; Status DC Apixaban (Eliquis) 5 mg BID PO Last administered on 02/21/20at 21:21; Start 02/21/20 at 11:00 Diltiazem HCl (Cardizem 24hr Cd) 240 mg DAILY PO Last administered on 02/21/20at 11:25; Start 02/21/20 at 11:00 Furosemide (Lasix) 20 mg DAILY PO Last administered on 02/21/20at 11:13; Start 02/21/20 at 11:00 Albuterol/ Ipratropium (Combivent Respimat 20-100 Mcg) 1 puff RTQID INH ; Start 02/21/20 at 12:00; Stop 02/21/20 at 12:24; Status DC Polyethylene Glycol (miraLAX PACKET) 17 gm QODAY PO ; Start 02/23/20 at 09:00 Amiodarone HCl (Cordarone) 100 mg DAILY PO Last administered on 02/21/20at 13:18; Start 02/21/20 at 13:00 Non-Formulary Medication (Arformoterol Tartrate (Brovana)) 15 mcg BID IH ; Start 02/21/20 at 21:00; Status UNV Calcium/Vitamin D (Oscal D 500mg/ 200uts) 1 tab BIDWMEALS PO Last administered on 02/22/20at 07:58; Start 02/21/20 at 11:00 Guaifenesin (MUCINEX ER with DM) 1 tab BID PO Last administered on 02/21/20at 21:21; Start 02/21/20 at 11:00 Non-Formulary Medication (Imatinib Mesylate (Gleevec)) 400 mg DAILYAC PO Last administered on 02/22/20at 07:57; Start 02/21/20 at 13:00 Potassium Chloride (Klor-Con) 10 meq DAILYWBKFT PO Last administered on 02/22/20at 07:58; Start 02/21/20 at 11:00 Albuterol Sulfate (Ventolin Hfa) 1 puff PRN Q6HRS PRN INH WHEEZES; Start 02/21/20 at 12:00 Prednisone (Prednisone) 60 mg DAILY PO Last administered on 02/21/20at 11:24; Start 02/21/20 at 10:30 Ceftriaxone Sodium (Rocephin) 1 gm Q24H IVP Last administered on 02/21/20at 11:26; Start 02/21/20 at 11:00; Stop 02/22/20 at 08:36; Status DC Azithromycin (Zithromax) 250 mg DAILY PO Last administered on 02/21/20at 11:25; Start 02/21/20 at 11:00; Stop 02/21/20 at 12:43; Status DC Albuterol/ Ipratropium (Combivent Respimat 20-100 Mcg) 1 puff RTQID INH Last ad ministered on 02/22/20at 07:57; Start 02/21/20 at 12:30 Doxycycline Hyclate (Vibra-Tab) 100 mg BID PO Last administered on 02/21/20at 21:21; Start 02/21/20 at 21:00 Info (Anti-Coagulation Monitoring By Pharmacy) 1 each PRN DAILY PRN MC SEE COMMENTS Last administered on 02/21/20at 16:07; Start 02/21/20 at 16:15 Piperacillin Sod/ Tazobactam Sod (Zosyn Per Pharmacy) 1 each PRN DAILY PRN MC SEE COMMENTS; Start 02/22/20 at 08:45 Piperacillin Sod/ Tazobactam Sod 3.375 gm/Sodium Chloride 50 ml @ 100 mls/hr Q6HRS IV ; Start 02/22/20 at 10:00 Active Scripts Active Ventolin Hfa Inhaler (Albuterol Sulfate) 18 Gm Hfa.aer.ad 18 Gm IH QID Reported Gleevec (Imatinib Mesylate) 400 Mg Tablet 400 Mg PO DAILYAC Advil (Ibuprofen) 200 Mg Tablet 200 Mg PO PRN PRN Budesonide 0.5 Mg/2 Ml Ampul.neb 1 Vial NEB BID Duoneb 0.5-3(2.5) Mg/3 Ml (Albuterol/Ipratropium) 3 Ml Ampul.neb 3 Ml NEB QID Miralax (Polyethylene Glycol 3350) 17 Gm Powd.pack 1 Packet PO QODAY 2 Days dissolve in water Mucus Relief ER (Guaifenesin) 1,200 Mg Tab.er.12h 1,200 Mg PO DAILY Alendronate Sodium 70 Mg Tablet 1 Tab PO WEEKLY Eliquis (Apixaban) 5 Mg Tablet 5 Mg PO BID Restart tomorrow 01/12/2020 [Vitamin D2] 50,000 Units PO WEEKLY Furosemide 20 Mg Tablet 1 Tab PO DAILY Klor-Con 10 (Potassium Chloride) 10 Meq Tablet.er 1 Tab PO DAILY 30 Days Diltiazem 24Hr Cd (Diltiazem HCl) 240 Mg Cap.er.24h 1 Cap PO DAILY 30 Days Amiodarone Hcl 100 Mg Tablet 1 Tab PO DAILY 30 Days Calcium 600 + Vit D Caplet (Calcium Carbonate/Vitamin D3) 1 Each Tablet 1 Tab PO BID 30 Days Brovana (Arformoterol Tartrate) 15 Mcg/2 Ml Vial.neb 15 Mcg IH BID Levalbuterol Concentrate (Levalbuterol Hcl) 1.25 Mg/0.5 Ml Vial.neb 1.25 Mg IH QID Vitals/I & O Vital Sign - Last 24 Hours 02/21/20 02/21/20 02/21/20 02/21/20 10:34 11:25 13:18 15:00 Temp 97.3 97.4 97.3 97.4 Pulse 94 94 94 100 Resp 17 18 B/P (MAP) 145/48 (80) 145/48 145/48 155/60 (91) Pulse Ox 97 100 O2 Delivery Nasal Cannula Nasal Cannula O2 Flow Rate 2.0 2.0 02/21/20 02/21/20 02/21/20 02/22/20 19:30 20:02 23:21 03:00 Temp 97.9 97.5 97.0 97.9 97.5 97.0 Pulse 103 101 92 Resp 17 18 18 B/P (MAP) 134/92 (106) 129/88 (102) 123/50 (74) Pulse Ox 99 97 100 O2 Delivery Nasal Cannula Nasal Cannula Nasal Cannula O2 Flow Rate 2.5 2.0 2.5 2.0 02/22/20 02/22/20 07:30 08:06 Temp 96.9 96.9 Pulse 94 Resp 24 B/P (MAP) 148/55 (86) Pulse Ox 98 O2 Delivery Nasal Cannula Nasal Cannula O2 Flow Rate 2.0 2.0 Intake and Output 02/21/20 02/21/20 02/22/20 14:59 22:59 06:59 Intake Total 600 ml 120 ml 50 ml Output Total 200 ml Balance 600 ml 120 ml -150 ml Justicifation of Admission Dx: Justifications for Admission: Justification of Admission Dx: Yes BERNADINE SETH MD Feb 22, 2020 10:15
[2020-02-22 10:50] LABS: PLT ESTIMATE DECREASED (ADEQUATE)
[2020-02-22] MEDS: predniSONE 20 MG TABLET PO SCH (11:37)
[2020-02-22] MEDS: DOXYCYCLINE HYCLATE 100 MG TABLET PO SCH ×2 (11:37→20:14)
[2020-02-22] MEDS: APIXABAN 5 MG TABLET. PO SCH ×2 (11:37→21:20)
[2020-02-22] MEDS: guaiFENesin DM 600/30MG 1 TAB TAB.ER.12H PO SCH ×2 (11:37→21:21)
[2020-02-22] MEDS: FUROSEMIDE 20 MG TABLET PO SCH (11:38)
[2020-02-22] MEDS: AMIODARONE HCL 200 MG TABLET. PO SCH (11:38)
[2020-02-22] MEDS: PIPERACILLIN/TAZOBACTAM 3.375 GM in IV NORMAL SALINE 50ML 50 ML IV SCH ×2 (11:43→17:39)
--- NOTE | 2020-02-22 12:47 | CONS ---
DATE OF CONSULTATION: 02/22/2020 REFERRING PHYSICIAN: Luis Enrique Pierre MD REASON FOR CONSULTATION: Sepsis. HISTORY OF PRESENT ILLNESS: A 69-year-old female with history of COPD; on home O2, history of lung cancer, status post radiation, coronary artery disease, hypertension, history of CML; on Gleevec, chronic low back pain, osteoporosis, presented with shortness of breath; worsening over the last 2 days and cough. The patient denied any fevers, chills, nausea, vomiting, diarrhea, headache, sore throat. Denied any sick contact. She was afebrile. White count was 4.0, today is 2.9, hemoglobin of 9.4, platelets of 78. COVID was sent out, which is pending at this time. BNP was 218. Troponin was normal. Creatinine was within normal limits. Albumin of 2.6. Blood cultures were done, which are negative. Chest x-ray showed small bilateral pleural effusion with adjacent airspace disease, likely atelectasis. She was given azithromycin and ceftriaxone. Currently, is on Zosyn and azithromycin. ID consult has been requested for antibiotic management. Today, the patient states she feels a little better, still feels achy. Denies any fevers, chills, chest pain. PAST MEDICAL HISTORY: COPD; on home O2, history of right lung cancer, status post radiation, history of CML, osteoporosis, coronary artery disease, hypertension. PAST SURGICAL HISTORY: Bone marrow aspiration. ALLERGIES: ACETAMINOPHEN AND CODEINE. CURRENT MEDICATIONS: Zosyn, azithromycin, status post Rocephin. FAMILY HISTORY: As per HPI. SOCIAL HISTORY: Denies smoking, quit 30 years ago. No alcohol. Lives at home. REVIEW OF SYSTEMS: Negative except for above in HPI. PHYSICAL EXAMINATION: VITAL SIGNS: Temperature 96.9, pulse 94, respiratory rate 20, blood pressure 148/46, oxygen saturation 98% on 3 liters by nasal cannula. GENERAL: Alert, oriented x 3 female, sitting upright in bed, in no acute distress. HEENT: Normocephalic, atraumatic, anicteric. Nasal O2 present. NECK: Supple. LUNGS: Decreased breath sounds. No wheezing. HEART: S1, S2. ABDOMEN: Soft, nontender, nondistended. EXTREMITIES: No edema, no cyanosis. NEUROLOGIC: Alert and oriented x 3, grossly nonfocal. PSYCHIATRIC: Cooperative, appropriate mood and affect. DERMATOLOGIC: Warm and dry. No generalized rash. LABORATORY DATA: WBC 2.9, hemoglobin 9.4, hematocrit 27.7, platelets 78. Sodium 140, potassium 3.9, chloride 101, bicarb 36, BUN 13, creatinine 0.7, glucose 120. Albumin 2.6; otherwise, LFTs are within normal limits. COVID-19 report negative. Blood cultures negative. IMAGING: Chest x-ray shows small bilateral pleural effusion with adjacent airspace disease, likely atelectasis. IMPRESSION: 1. Pancytopenia. 2. History of chronic myelogenous leukemia, on Gleevec. 3. Dyspnea secondary to acute exacerbation of chronic obstructive pulmonary disease. 4. Chronic hypoxic respiratory failure, on 2 liters O2 at home. 5. History of lung cancer, status post radiation. 6. Coronary artery disease. 7. Protein-calorie malnutrition. RECOMMENDATIONS: 1. Continue Zosyn and azithromycin for now ,will deescalate soon. 2. Status post one-time dose of ceftriaxone. 3. Awaiting noncontrast CT once COVID is ruled out. 4. The patient remains on steroids. 5. Follow up cultures and lab. 6. Continue supportive care. Thank you, Dr. Pierre, for consulting Infectious Disease to participate in this patient's care. Discussed with RN. DEN WHITEHEAD MD DR: MOISE/sara JOB#: [id number] / [id number] KATHRINE
[2020-02-22] MEDS ORDERED: IPRATRPIUM/ALBUTEROL 0.5/2.5MG 3 ML NEBU. ONE (13:12)
[2020-02-22] MEDS: IPRATRPIUM/ALBUTEROL 0.5/2.5MG 3 ML NEBU. NEB SCH ×2 (13:25→20:00)
--- NOTE | 2020-02-22 13:37 | NUR ---
SW following. Reviewed chart and discussed with RN. Pt from home alone. Discharge remains home with and home 02. Pt was to discharge today but dc held per sepsis and pt stated on IV Zosyn. Spoke with Luly from [facility]. Pt accepted for at discharge. Pt COVID negative. SW to continue following.
--- NOTE | 2020-02-22 15:56 | NUR ---
Report given to SATISH Conde on 4N at 1530. Pt transferred from room 648 to room 442 by wheelchair at 1555. Belongings sent with pt at time of transfer.
[2020-02-22] MEDS ORDERED: ALBUTEROL SULFATE 2.5 MG/3 ML NEBU. NEB PRN (16:15)
[2020-02-22] MEDS: BUDESONIDE 0.5 MG/2 ML NEBU. NEB SCH (20:00)
[2020-02-23] MEDS: PIPERACILLIN/TAZOBACTAM 3.375 GM in IV NORMAL SALINE 50ML 50 ML IV SCH ×2 (00:03→05:29)
[2020-02-23 03:00] VITALS: BP 152/66
[2020-02-23 07:00] VITALS: BP 139/65
[2020-02-23] MEDS: BUDESONIDE 0.5 MG/2 ML NEBU. NEB SCH ×2 (07:00→20:13)
[2020-02-23] MEDS: IPRATRPIUM/ALBUTEROL 0.5/2.5MG 3 ML NEBU. NEB SCH ×4 (07:19→20:13)
[2020-02-23] MEDS: GLEEVEC PO SCH (07:49)
[2020-02-23 07:51] LABS: BASO % 0 % (0-3); EOS % 0 % (0-3); HEMOGLOBIN 8.9 g/dL (12.0-15.5); LYMPH # 0.2 x10^3/uL (1.0-4.8); LYMPH % 3 % (24-48); MEAN CORPUSCULAR HEMOGLOBIN 30 pg (25-35); MEAN CORPUSCULAR HGB CONC 33 g/dL (31-37); MEAN CORPUSCULAR VOLUME 92 fL (79-100); MONO # 0.5 x10^3/uL (0.0-1.1); MONO % 8 % (0-9); NEUT # 5.5 x10^3/uL (1.8-7.7); NEUT % 89 % (31-73); PLATELET COUNT 88 x10^3/uL (140-400); RED BLOOD COUNT 2.93 x10^6/uL (3.50-5.40); WHITE BLOOD COUNT 6.2 x10^3/uL (4.0-11.0)
--- NOTE | 2020-02-23 07:55 | PDOC ---
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 Continue with empiric antibiotics. Eliquis Continue oral prednisone. ID CONSULT pt/ot CONSULT ONCOLOGY D/W RN 38 MIN pt exam, chart review, > 50% of time spent with exam, chart review, pt care coordination Justicifation of Admission Dx: Justicifation of Admission Dx: Justifications for Admission: Justification of Admission Dx: Yes History of Present Illness History of Present Illness Identification/Chief Complaint Chief Complaint short of breath Source Source: Chart review, Patient History of Present Illness History of Present Illness Ms. Son is a 69 year old female with a history of COPD presents with a 2-day history of shortness of breath. She has cough and dyspena, and feels she needs more breathing treatments, but is getting ruled out for COVID currently. NEG she has symtoms are worse with exertion. Patient received nebulizer prior to arrival with some improvement. no pain, Past Medical History Cardiovascular: CAD, HTN Pulmonary: COPD, Pneumonia, Other Heme/Onc: Cancer Musculoskeletal: low back pain, Other Endocrine: Osteoporosis Past Surgical History Past Surgical History: Breast Biopsy, Hysterectomy Social History Smoke: Quit ALCOHOL: rare Drugs: None History of right lung cancer treated with radiation close to 5 years ago. No chemo. Leukemia. Vitals Vitals Vital Signs Date Time Temp Pulse Resp B/P (MAP) Pulse Ox O2 Delivery O2 Flow Rate FiO2 02/23/20 07:21 97 Nasal Cannula 3.0 02/23/20 03:00 98.1 99 18 152/66 (94) 98.1 Physical Exam General: Alert, Oriented X3, Cooperative, No acute distress Heart: Regular rate, Normal S1 Lungs: Wheezing, Other Abdomen: Normal bowel sounds, Soft Extremities: No clubbing, No cyanosis, No edema, Normal pulses Skin: No breakdown Labs LABS Tricuspid Valve TR P. Velocity 319cm/s RAP ESTIMATE 3mmHg TR Peak Gr. 55mmHg RVSP 58mmHg Pulmonary Vein S1 Velocity 56.2cm/s D2 Velocity 44.5cm/s PVa duration 137msec LEFT VENTRICLE The left ventricle is normal size. There is borderline to mild concentric left ventricular hypertrophy. The left ventricular systolic function is low normal. EF 50% Wall motion consistent with conduction abnormality. Otherwise, grossly normal wall motion. Transmitral Doppler flow pattern is Grade I-abnormal relaxation pattern. RIGHT VENTRICLE The right ventricle is normal size. There is normal right ventricular wall thickness. The right ventricular systolic function is normal. ATRIA The left atrium size is normal. The right atrium size is normal. The interatrial septum is intact with no evidence for an atrial septal defect or patent foramen ovale as noted on 2-D or Doppler imaging. AORTIC VALVE The aortic valve is thickened but opens well. Doppler and Color Flow revealed no significant aortic regurgitation. There is no significant aortic valvular stenosis. Calculated aortic maximum pressure gradient of 9 mmHg and mean pressure gradient of 5 mmHg. MITRAL VALVE The mitral valve is normal in structure and function. There is no evidence of mitral valve prolapse. There is no mitral valve stenosis. Doppler and Color-flow revealed trace to mild mitral regurgitation. TRICUSPID VALVE The tricuspid valve is normal in structure and function. Doppler and Color Flow revealed mild tricuspid regurgitation with an estimated PAP of 58 mmHg. There is no tricuspid valve stenosis. PULMONIC VALVE The pulmonic valve is not well visualized. Doppler and Color Flow revealed trace pulmonic valvular regurgitation. There is no pulmonic valvular stenosis. GREAT VESSELS The aortic root is normal in size. The IVC is normal in size and collapses >50% with inspiration. PERICARDIAL EFFUSION There is no evidence of significant pericardial effusion. Critical Notification Critical Value: No <Conclusion> The left ventricular systolic function is low normal. EF 50% Wall motion consistent with conduction abnormality. Otherwise, grossly normal wall motion. Doppler and Color Flow revealed mild tricuspid regurgitation with an estimated PAP of 58 mmHg. Signed by : Richard Chacon, Electronically Approved : 01/09/2020 17:32:07 DICTATED and SIGNED BY: RICHARD CHACON MD DATE: 01/09/20 1646 ORDERED: BCULT Procedure Result BLOOD CULTURE Preliminary NO GROWTH AFTER 2 DAYS Laboratory Tests Test 02/23/20 07:25 White Blood Count 6.2 x10^3/uL (4.0-11.0) Red Blood Count 2.93 x10^6/uL (3.50-5.40) Hemoglobin 8.9 g/dL (12.0-15.5) Hematocrit 27.0 % (36.0-47.0) Mean Corpuscular Volume 92 fL (79-100) Mean Corpuscular Hemoglobin 30 pg (25-35) Mean Corpuscular Hemoglobin Concent 33 g/dL (31-37) Red Cell Distribution Width 19.0 % (11.5-14.5) Platelet Count 88 x10^3/uL (140-400) Neutrophils (%) (Auto) 89 % (31-73) Lymphocytes (%) (Auto) 3 % (24-48) Monocytes (%) (Auto) 8 % (0-9) Eosinophils (%) (Auto) 0 % (0-3) Basophils (%) (Auto) 0 % (0-3) Neutrophils # (Auto) 5.5 x10^3/uL (1.8-7.7) Lymphocytes # (Auto) 0.2 x10^3/uL (1.0-4.8) Monocytes # (Auto) 0.5 x10^3/uL (0.0-1.1) Eosinophils # (Auto) 0.0 x10^3/uL (0.0-0.7) Basophils # (Auto) 0.0 x10^3/uL (0.0-0.2) Assessment and Plan Assessmemt and Plan Problems Medical Problems: (1) COPD exacerbation Status: Acute (2) Dyspnea Status: Acute Comment Review of Relevant I have reviewed the following items la (where applicable) has been applied. Labs Laboratory Tests Test 02/22/20 04:15 02/23/20 07:25 White Blood Count 2.9 x10^3/uL (4.0-11.0) 6.2 x10^3/uL (4.0-11.0) Red Blood Count 3.03 x10^6/uL (3.50-5.40) 2.93 x10^6/uL (3.50-5.40) Hemoglobin 9.4 g/dL (12.0-15.5) 8.9 g/dL (12.0-15.5) Hematocrit 27.7 % (36.0-47.0) 27.0 % (36.0-47.0) Mean Corpuscular Volume 91 fL (79-100) 92 fL (79-100) Mean Corpuscular Hemoglobin 31 pg (25-35) 30 pg (25-35) Mean Corpuscular Hemoglobin Concent 34 g/dL (31-37) 33 g/dL (31-37) Red Cell Distribution Width 17.8 % (11.5-14.5) 19.0 % (11.5-14.5) Platelet Count 78 x10^3/uL (140-400) 88 x10^3/uL (140-400) Neutrophils (%) (Auto) 92 % (31-73) 89 % (31-73) Lymphocytes (%) (Auto) 3 % (24-48) 3 % (24-48) Monocytes (%) (Auto) 5 % (0-9) 8 % (0-9) Eosinophils (%) (Auto) 0 % (0-3) 0 % (0-3) Basophils (%) (Auto) 0 % (0-3) 0 % (0-3) Neutrophils # (Auto) 2.7 x10^3/uL (1.8-7.7) 5.5 x10^3/uL (1.8-7.7) Lymphocytes # (Auto) 0.1 x10^3/uL (1.0-4.8) 0.2 x10^3/uL (1.0-4.8) Monocytes # (Auto) 0.1 x10^3/uL (0.0-1.1) 0.5 x10^3/uL (0.0-1.1) Eosinophils # (Auto) 0.0 x10^3/uL (0.0-0.7) 0.0 x10^3/uL (0.0-0.7) Basophils # (Auto) 0.0 x10^3/uL (0.0-0.2) 0.0 x10^3/uL (0.0-0.2) Segmented Neutrophils % 90 % (35-66) Band Neutrophils % 1 % (0-9) Lymphocytes % 4 % (24-48) Monocytes % 5 % (0-10) Platelet Estimate Decreased (ADEQUATE) Basophilic Stippling Present Sodium Level 140 mmol/L (136-145) Potassium Level 3.9 mmol/L (3.5-5.1) Chloride Level 101 mmol/L (98-107) Carbon Dioxide Level 36 mmol/L (21-32) Anion Gap 3 (6-14) Blood Urea Nitrogen 13 mg/dL (7-20) Creatinine 0.7 mg/dL (0.6-1.0) Estimated GFR (Cockcroft-Gault) 83.2 BUN/Creatinine Ratio 19 (6-20) Glucose Level 120 mg/dL (70-99) Calcium Level 7.9 mg/dL (8.5-10.1) Total Bilirubin 0.4 mg/dL (0.2-1.0) Aspartate Amino Transf (AST/SGOT) 19 U/L (15-37) Alanine Aminotransferase (ALT/SGPT) 21 U/L (14-59) Alkaline Phosphatase 85 U/L (46-116) Total Protein 5.4 g/dL (6.4-8.2) Albumin 2.6 g/dL (3.4-5.0) Albumin/Globulin Ratio 0.9 (1.0-1.7) Laboratory Tests Test 02/23/20 07:25 White Blood Count 6.2 x10^3/uL (4.0-11.0) Red Blood Count 2.93 x10^6/uL (3.50-5.40) Hemoglobin 8.9 g/dL (12.0-15.5) Hematocrit 27.0 % (36.0-47.0) Mean Corpuscular Volume 92 fL (79-100) Mean Corpuscular Hemoglobin 30 pg (25-35) Mean Corpuscular Hemoglobin Concent 33 g/dL (31-37) Red Cell Distribution Width 19.0 % (11.5-14.5) Platelet Count 88 x10^3/uL (140-400) Neutrophils (%) (Auto) 89 % (31-73) Lymphocytes (%) (Auto) 3 % (24-48) Monocytes (%) (Auto) 8 % (0-9) Eosinophils (%) (Auto) 0 % (0-3) Basophils (%) (Auto) 0 % (0-3) Neutrophils # (Auto) 5.5 x10^3/uL (1.8-7.7) Lymphocytes # (Auto) 0.2 x10^3/uL (1.0-4.8) Monocytes # (Auto) 0.5 x10^3/uL (0.0-1.1) Eosinophils # (Auto) 0.0 x10^3/uL (0.0-0.7) Basophils # (Auto) 0.0 x10^3/uL (0.0-0.2) Microbiology 02/20/20 Blood Culture - Preliminary, Resulted NO GROWTH AFTER 2 DAYS Medications Current Medications Azithromycin 250 ml @ 250 mls/hr 1X ONCE IV Last administered on 02/20/20at 19:56; Start 02/20/20 at 19:15; Stop 02/20/20 at 20:14; Status DC Ceftriaxone Sodium (Rocephin) 1 gm 1X ONCE IVP Last administered on 02/20/20at 19:49; Start 02/20/20 at 19:15; Stop 02/20/20 at 19:16; Status DC Methylprednisolone Sodium Succinate (SOLU-Medrol 125MG VIAL) 125 mg 1X ONCE IV Last administered on 02/20/20at 19:40; Start 02/20/20 at 19:15; Stop 02/20/20 at 19:16; Status DC Albuterol Sulfate (Ventolin Neb Soln) 7.5 mg 1X ONCE NEB Last administered on 02/20/20at 19:55; Start 02/20/20 at 19:30; Stop 02/20/20 at 19:31; Status DC Ipratropium [place] (Atrovent) 0.5 mg 1X ONCE NEB Last administered on 02/20/20at 19:55; Start 02/20/20 at 19:30; Stop 02/20/20 at 19:31; Status DC Potassium Chloride (Klor-Con) 40 meq 1X ONCE PO Last administered on 02/20/20at 22:03; Start 02/20/20 at 21:15; Stop 02/20/20 at 21:16; Status DC Potassium Chloride (Klor-Con) 40 meq 1X ONCE PO ; Start 02/20/20 at 22:15; Stop 02/20/20 at 22:36; Status DC Non-Formulary Medication (Albuterol Sulfate (Ventolin Hfa Inhaler)) 18 gm QID IH ; Start 02/21/20 at 09:00; Status UNV Albuterol Sulfate (Ventolin Neb Soln) 2.5 mg RTQID NEB ; Start 02/21/20 at 08:00; Status Cancel Albuterol Sulfate (Ventolin Hfa) 1 puff RTQID INH Last administered on 02/21/20at 12:16; Start 02/21/20 at 08:00; Stop 02/21/20 at 12:25; Status DC Apixaban (Eliquis) 5 mg BID PO Last administered on 02/22/20at 21:20; Start 02/21/20 at 11:00 Diltiazem HCl (Cardizem 24hr Cd) 240 mg DAILY PO Last administered on 02/22/20at 11:38; Start 02/21/20 at 11:00 Furosemide (Lasix) 20 mg DAILY PO Last administered on 02/22/20at 11:38; Start 02/21/20 at 11:00 Albuterol/ Ipratropium (Combivent Respimat 20-100 Mcg) 1 puff RTQID INH ; Start 02/21/20 at 12:00; Stop 02/21/20 at 12:24; Status DC Polyethylene Glycol (miraLAX PACKET) 17 gm QODAY PO ; Start 02/23/20 at 09:00 Amiodarone HCl (Cordarone) 100 mg DAILY PO Last administered on 02/22/20at 11:38; Start 02/21/20 at 13:00 Non-Formulary Medication (Arformoterol Tartrate (Brovana)) 15 mcg BID IH ; Start 02/21/20 at 21:00; Status UNV Calcium/Vitamin D (Oscal D 500mg/ 200uts) 1 tab BIDWMEALS PO Last administered on 02/22/20at 17:39; Start 02/21/20 at 11:00 Guaifenesin (MUCINEX ER with DM) 1 tab BID PO Last administered on 02/22/20at 21:21; Start 02/21/20 at 11:00 Non-Formulary Medication (Imatinib Mesylate (Gleevec)) 400 mg DAILYAC PO Last administered on 02/23/20at 07:49; Start 02/21/20 at 13:00 Potassium Chloride (Klor-Con) 10 meq DAILYWBKFT PO Last administered on 02/22/20at 07:58; Start 02/21/20 at 11:00 Albuterol Sulfate (Ventolin Hfa) 1 puff PRN Q6HRS PRN INH WHEEZES; Start 02/21/20 at 12:00; Stop 02/22/20 at 16:02; Status DC Prednisone (Prednisone) 60 mg DAILY PO Last administered on 02/22/20at 11:37; Start 02/21/20 at 10:30 Ceftriaxone Sodium (Rocephin) 1 gm Q24H IVP Last administered on 02/21/20at 11:26; Start 02/21/20 at 11:00; Stop 02/22/20 at 08:36; Status DC Azithromycin (Zithromax) 250 mg DAILY PO Last administered on 02/21/20at 11:25; Start 02/21/20 at 11:00; Stop 02/21/20 at 12:43; Status DC Albuterol/ Ipratropium (Combivent Respimat 20-100 Mcg) 1 puff RTQID INH Last administered on 02/22/20at 07:57; Start 02/21/20 at 12:30; Stop 02/22/20 at 16:03; Status DC Doxycycline Hyclate (Vibra-Tab) 100 mg BID PO Last administered on 02/22/20at 20:14; Start 02/21/20 at 21:00 Info (Anti-Coagulation Monitoring By Pharmacy) 1 each PRN DAILY PRN MC SEE COMMENTS Last administered on 02/21/20at 16:07; Start 02/21/20 at 16:15 Piperacillin Sod/ Tazobactam Sod (Zosyn Per Pharmacy) 1 each PRN DAILY PRN MC SEE COMMENTS; Start 02/22/20 at 08:45 Piperacillin Sod/ Tazobactam Sod 3.375 gm/Sodium Chloride 50 ml @ 100 mls/hr Q6HRS IV Last administered on 02/23/20at 05:29; Start 02/22/20 at 10:00 Albuterol/ Ipratropium (Duoneb) 3 ml RTQID NEB Last administered on 02/23/20at 07:19; Start 02/22/20 at 16:00 Budesonide (Pulmicort) 0.5 mg RTBID NEB Last administered on 02/22/20at 20:00; Start 02/22/20 at 20:00 Albuterol/ Ipratropium (Duoneb) 3 ml STK-MED ONCE .ROUTE ; Start 02/22/20 at 13:12; Stop 02/22/20 at 13:12; Status DC Albuterol Sulfate (Ventolin Neb Soln) 2.5 mg PRN Q6HRS PRN NEB WHEEZING; Start 02/22/20 at 16:15 Active Scripts Active Ventolin Hfa Inhaler (Albuterol Sulfate) 18 Gm Hfa.aer.ad 18 Gm IH QID Reported Gleevec (Imatinib Mesylate) 400 Mg Tablet 400 Mg PO DAILYAC Advil (Ibuprofen) 200 Mg Tablet 200 Mg PO PRN PRN Budesonide 0.5 Mg/2 Ml Ampul.neb 1 Vial NEB BID Duoneb 0.5-3(2.5) Mg/3 Ml (Albuterol/Ipratropium) 3 Ml Ampul.neb 3 Ml NEB QID Miralax (Polyethylene Glycol 3350) 17 Gm Powd.pack 1 Packet PO QODAY 2 Days dissolve in water Mucus Relief ER (Guaifenesin) 1,200 Mg Tab.er.12h 1,200 Mg PO DAILY Alendronate Sodium 70 Mg Tablet 1 Tab PO WEEKLY Eliquis (Apixaban) 5 Mg Tablet 5 Mg PO BID Restart tomorrow 01/12/2020 [Vitamin D2] 50,000 Units PO WEEKLY Furosemide 20 Mg Tablet 1 Tab PO DAILY Klor-Con 10 (Potassium Chloride) 10 Meq Tablet.er 1 Tab PO DAILY 30 Days Diltiazem 24Hr Cd (Diltiazem HCl) 240 Mg Cap.er.24h 1 Cap PO DAILY 30 Days Amiodarone Hcl 100 Mg Tablet 1 Tab PO DAILY 30 Days Calcium 600 + Vit D Caplet (Calcium Carbonate/Vitamin D3) 1 Each Tablet 1 Tab PO BID 30 Days Brovana (Arformoterol Tartrate) 15 Mcg/2 Ml Vial.neb 15 Mcg IH BID Levalbuterol Concentrate (Levalbuterol Hcl) 1.25 Mg/0.5 Ml Vial.neb 1.25 Mg IH QID Vitals/I & O Vital Sign - Last 24 Hours 02/22/20 02/22/20 02/22/20 02/22/20 08:06 11:00 11:38 11:38 Temp 96.9 96.9 Pulse 95 94 94 Resp 20 B/P (MAP) 148/46 (80) 148/55 148/55 Pulse Ox 98 O2 Delivery Nasal Cannula Nasal Cannula O2 Flow Rate 2.0 3.0 02/22/20 02/22/20 02/22/20 02/22/20 13:28 15:46 16:11 19:00 Temp 97.7 97.5 97.5 97.7 97.5 97.5 Pulse 118 102 97 Resp 22 18 B/P (MAP) 158/73 (101) 160/70 (100) 162/53 (89) Pulse Ox 100 100 96 98 O2 Delivery Nasal Cannula Nasal Cannula Nasal Cannula Room Air O2 Flow Rate 2.0 3.0 3.0 02/22/20 02/22/20 02/22/20 02/22/20 20:00 20:51 20:52 23:00 Temp 97.6 97.6 Pulse 96 Resp 18 B/P (MAP) 155/69 (97) Pulse Ox 100 100 99 O2 Delivery Nasal Cannula Nasal Cannula Nasal Cannula Nasal Cannula O2 Flow Rate 2.5 3.0 3.0 3.0 02/23/20 02/23/20 03:00 07:21 Temp 98.1 98.1 Pulse 99 Resp 18 B/P (MAP) 152/66 (94) Pulse Ox 97 97 O2 Delivery Nasal Cannula Nasal Cannula O2 Flow Rate 3.0 3.0 Intake and Output 02/22/20 02/22/20 02/23/20 15:00 23:00 07:00 Intake Total 50 ml 120 ml 550 ml Balance 50 ml 120 ml 550 ml Justicifation of Admission Dx: Justifications for Admission: Justification of Admission Dx: Yes BERNADINE SETH MD Feb 23, 2020 07:55
[2020-02-23] MEDS: predniSONE 20 MG TABLET PO SCH (09:25)
[2020-02-23] MEDS: FUROSEMIDE 20 MG TABLET PO SCH (09:26)
[2020-02-23] MEDS: guaiFENesin DM 600/30MG 1 TAB TAB.ER.12H PO SCH ×2 (09:26→20:51)
[2020-02-23] MEDS: CALCIUM CARB/VIT D3 500/200 TABLET. PO SCH ×2 (09:26→17:43)
[2020-02-23] MEDS: APIXABAN 5 MG TABLET. PO SCH ×2 (09:26→20:51)
[2020-02-23] MEDS: DOXYCYCLINE HYCLATE 100 MG TABLET PO SCH ×2 (09:26→20:51)
[2020-02-23] MEDS: POTASSIUM CHLORIDE 10 MEQ TABLET.ER. PO SCH (09:26)
[2020-02-23] MEDS: POLYETHYLENE GLYCOL 3350 17 GM PACKET. PO SCH (09:27)
[2020-02-23] MEDS: AMIODARONE HCL 200 MG TABLET. PO SCH (09:31)
--- NOTE | 2020-02-23 10:11 | NUR ---
SW following. Discussed with RN, pt has oxygen at home. Plan is [facility] when ready for discharge. SW will continue to follow.
--- NOTE | 2020-02-23 10:13 | NUR ---
Per pt's request, [facility] contacted to cx pt's appt scheduled for tomorrow 02/23. The office stated they would inform the dr and reach out to pt re: rescheduling.
[2020-02-23 11:00] VITALS: BP 142/53
--- NOTE | 2020-02-23 11:05 | PDOC ---
PULMONARY PROGRESS NOTES DATE: 02/23/20 TIME: 11:03 Subjective Reports increased SOB, increased wheezing today Remains on 3 liters n/C no increased cough or CP Vitals Vital Signs Date Time Temp Pulse Resp B/P (MAP) Pulse Ox O2 Delivery O2 Flow Rate FiO2 02/23/20 09:31 92 139/65 02/23/20 07:30 Nasal Cannula 3.0 02/23/20 07:21 97 02/23/20 07:00 98.4 16 98.4 ROS: No Nausea, No Chest Pain, No Abdominal Pain, No Increase Cough General: Alert, No acute distress Lungs: Wheezing, Other Cardiovascular: S1 Abdomen: Soft Neuro Exam: Alert Extremities: No Edema Skin: Warm Labs Laboratory Tests Test 02/22/20 04:15 02/23/20 07:25 White Blood Count 2.9 x10^3/uL (4.0-11.0) 6.2 x10^3/uL (4.0-11.0) Red Blood Count 3.03 x10^6/uL (3.50-5.40) 2.93 x10^6/uL (3.50-5.40) Hemoglobin 9.4 g/dL (12.0-15.5) 8.9 g/dL (12.0-15.5) Hematocrit 27.7 % (36.0-47.0) 27.0 % (36.0-47.0) Mean Corpuscular Volume 91 fL (79-100) 92 fL (79-100) Mean Corpuscular Hemoglobin 31 pg (25-35) 30 pg (25-35) Mean Corpuscular Hemoglobin Concent 34 g/dL (31-37) 33 g/dL (31-37) Red Cell Distribution Width 17.8 % (11.5-14.5) 19.0 % (11.5-14.5) Platelet Count 78 x10^3/uL (140-400) 88 x10^3/uL (140-400) Neutrophils (%) (Auto) 92 % (31-73) 89 % (31-73) Lymphocytes (%) (Auto) 3 % (24-48) 3 % (24-48) Monocytes (%) (Auto) 5 % (0-9) 8 % (0-9) Eosinophils (%) (Auto) 0 % (0-3) 0 % (0-3) Basophils (%) (Auto) 0 % (0-3) 0 % (0-3) Neutrophils # (Auto) 2.7 x10^3/uL (1.8-7.7) 5.5 x10^3/uL (1.8-7.7) Lymphocytes # (Auto) 0.1 x10^3/uL (1.0-4.8) 0.2 x10^3/uL (1.0-4.8) Monocytes # (Auto) 0.1 x10^3/uL (0.0-1.1) 0.5 x10^3/uL (0.0-1.1) Eosinophils # (Auto) 0.0 x10^3/uL (0.0-0.7) 0.0 x10^3/uL (0.0-0.7) Basophils # (Auto) 0.0 x10^3/uL (0.0-0.2) 0.0 x10^3/uL (0.0-0.2) Segmented Neutrophils % 90 % (35-66) Band Neutrophils % 1 % (0-9) Lymphocytes % 4 % (24-48) Monocytes % 5 % (0-10) Platelet Estimate Decreased (ADEQUATE) Basophilic Stippling Present Sodium Level 140 mmol/L (136-145) Potassium Level 3.9 mmol/L (3.5-5.1) Chloride Level 101 mmol/L (98-107) Carbon Dioxide Level 36 mmol/L (21-32) Anion Gap 3 (6-14) Blood Urea Nitrogen 13 mg/dL (7-20) Creatinine 0.7 mg/dL (0.6-1.0) Estimated GFR (Cockcroft-Gault) 83.2 BUN/Creatinine Ratio 19 (6-20) Glucose Level 120 mg/dL (70-99) Calcium Level 7.9 mg/dL (8.5-10.1) Total Bilirubin 0.4 mg/dL (0.2-1.0) Aspartate Amino Transf (AST/SGOT) 19 U/L (15-37) Alanine Aminotransferase (ALT/SGPT) 21 U/L (14-59) Alkaline Phosphatase 85 U/L (46-116) Total Protein 5.4 g/dL (6.4-8.2) Albumin 2.6 g/dL (3.4-5.0) Albumin/Globulin Ratio 0.9 (1.0-1.7) Laboratory Tests Test 02/23/20 07:25 White Blood Count 6.2 x10^3/uL (4.0-11.0) Red Blood Count 2.93 x10^6/uL (3.50-5.40) Hemoglobin 8.9 g/dL (12.0-15.5) Hematocrit 27.0 % (36.0-47.0) Mean Corpuscular Volume 92 fL (79-100) Mean Corpuscular Hemoglobin 30 pg (25-35) Mean Corpuscular Hemoglobin Concent 33 g/dL (31-37) Red Cell Distribution Width 19.0 % (11.5-14.5) Platelet Count 88 x10^3/uL (140-400) Neutrophils (%) (Auto) 89 % (31-73) Lymphocytes (%) (Auto) 3 % (24-48) Monocytes (%) (Auto) 8 % (0-9) Eosinophils (%) (Auto) 0 % (0-3) Basophils (%) (Auto) 0 % (0-3) Neutrophils # (Auto) 5.5 x10^3/uL (1.8-7.7) Lymphocytes # (Auto) 0.2 x10^3/uL (1.0-4.8) Monocytes # (Auto) 0.5 x10^3/uL (0.0-1.1) Eosinophils # (Auto) 0.0 x10^3/uL (0.0-0.7) Basophils # (Auto) 0.0 x10^3/uL (0.0-0.2) Medications Active Scripts Medications Dose Route/Sig Max Daily Dose Days Date Category Dose Instructions Gleevec (Imatinib Mesylate) 400 Mg Tablet 400 Mg PO DAILYAC 02/21/20 Reported Advil (Ibuprofen) 200 Mg Tablet 200 Mg PO PRN PRN 01/11/20 Reported Budesonide 0.5 Mg/2 Ml Ampul.neb 1 Vial NEB BID 01/11/20 Reported Duoneb 0.5-3(2.5) Mg/3 Ml (Albuterol/Ipratropium) 3 Ml Ampul.neb 3 Ml NEB QID 01/11/20 Reported Miralax (Polyethylene Glycol 3350) 17 Gm Powd.pack 1 Packet PO QODAY 2 01/11/20 Reported dissolve in water Mucus Relief ER (Guaifenesin) 1,200 Mg Tab.er.12h 1,200 Mg PO DAILY 01/11/20 Reported Alendronate Sodium 70 Mg Tablet 1 Tab PO WEEKLY 01/11/20 Reported Eliquis (Apixaban) 5 Mg Tablet 5 Mg PO BID 01/11/20 Reported Restart tomorrow 01/12/2020 [Vitamin D2] 50,000 Units PO WEEKLY 01/11/20 Reported Furosemide 20 Mg Tablet 1 Tab PO DAILY 01/11/20 Reported Klor-Con 10 (Potassium Chloride) 10 Meq Tablet.er 1 Tab PO DAILY 30 01/11/20 Reported Diltiazem 24Hr Cd (Diltiazem HCl) 240 Mg Cap.er.24h 1 Cap PO DAILY 30 01/11/20 Reported Amiodarone Hcl 100 Mg Tablet 1 Tab PO DAILY 30 01/11/20 Reported Calcium 600 + Vit D Caplet (Calcium Carbonate/Vitamin D3) 1 Each Tablet 1 Tab PO BID 30 01/11/20 Reported Ventolin Hfa Inhaler (Albuterol Sulfate) 18 Gm Hfa.aer.ad 18 Gm IH QID 10/13/13 Rx Brovana (Arformoterol Tartrate) 15 Mcg/2 Ml Vial.neb 15 Mcg IH BID 10/11/13 Reported Levalbuterol Concentrate (Levalbuterol Hcl) 1.25 Mg/0.5 Ml Vial.neb 1.25 Mg IH QID 06/24/13 Reported Comments CXR: IMPRESSION: Small bilateral pleural effusions, with adjacent airspace disease likely atelectasis. Impression . IMPRESSION: 1. Dyspnea secondary to acute exacerbation of chronic obstructive pulmonary disease. on home O2 at 2 litres. 2. Acute tracheobronchitis. 3. The patient with history of lung cancer, was not a surgical candidate, treated with radiation about 5 years ago. 4. History of leukemia, details are not available. Plan . RECOMMENDATIONS: 1. Continue with present oxygen. 2. Continue with nebulizers. 3. Continue with empiric antibiotics. 4. Eliquis per PCP. 5. will start IV steroids 60 Iv q8 Discussed with RN. YENIFER TOLENTINO MD Feb 23, 2020 11:05
--- NOTE | 2020-02-23 11:44 | PDOC ---
Infectious Disease Note Subjective: Subjective Patient has worsening shortness of breath Cough with clear sputum No fevers or chills or vomiting or diarrhea or abdominal pain Vital Signs: Vital Signs Vital Signs Date Time Temp Pulse Resp B/P (MAP) Pulse Ox O2 Delivery O2 Flow Rate FiO2 02/23/20 11:25 91 Nasal Cannula 3.0 02/23/20 11:00 98.4 108 16 142/53 (82) 98.4 Physical Exam: PHYSICAL EXAM GENERAL: Alert, oriented x 3 female, sitting upright in bed, in no acute distress. HEENT: Normocephalic, atraumatic, anicteric. Nasal O2 present. NECK: Supple. LUNGS: Decreased breath sounds. Scattered expiratory wheezing. HEART: S1, S2. ABDOMEN: Soft, nontender, nondistended. EXTREMITIES: No edema, no cyanosis. NEUROLOGIC: Alert and oriented x 3, grossly nonfocal. PSYCHIATRIC: Cooperative, appropriate mood and affect. DERMATOLOGIC: Warm and dry. No generalized rash. Medications: Inpatient Meds: Current Medications Medications (Trade) Dose Ordered Sig/Torsten Start Time Stop Time Status Last Admin Dose Admin Albuterol Sulfate (Ventolin Hfa) 1 puff PRN Q6HRS PRN 02/21/20 12:00 02/22/20 16:02 DC Albuterol Sulfate (Ventolin Neb Soln) 2.5 mg PRN Q6HRS PRN 02/22/20 16:15 Albuterol/ Ipratropium (Combivent Respimat 20-100 Mcg) 1 puff RTQID 02/21/20 12:30 02/22/20 16:03 DC 02/22/20 07:57 1 PUFF Albuterol/ Ipratropium (Duoneb) 3 ml STK-MED ONCE 02/22/20 13:12 02/22/20 13:12 DC Amiodarone HCl (Cordarone) 100 mg DAILY 02/21/20 13:00 02/23/20 09:31 100 MG Apixaban (Eliquis) 5 mg BID 02/21/20 11:00 02/23/20 09:26 5 MG Azithromycin (Zithromax) 250 mg DAILY 02/21/20 11:00 02/21/20 12:43 DC 02/21/20 11:25 250 MG Budesonide (Pulmicort) 0.5 mg RTBID 02/22/20 20:00 02/23/20 07:00 0.5 MG Calcium/Vitamin D (Oscal D 500mg/ 200uts) 1 tab BIDWMEALS 02/21/20 11:00 02/23/20 09:26 1 TAB Ceftriaxone Sodium (Rocephin) 1 gm Q24H 02/21/20 11:00 02/22/20 08:36 DC 02/21/20 11:26 1 GM Diltiazem HCl (Cardizem 24hr Cd) 240 mg DAILY 02/21/20 11:00 02/23/20 09:26 240 MG Doxycycline Hyclate (Vibra-Tab) 100 mg BID 02/21/20 21:00 02/23/20 09:26 100 MG Furosemide (Lasix) 20 mg DAILY 02/21/20 11:00 02/23/20 09:26 20 MG Guaifenesin (MUCINEX ER with DM) 1 tab BID 02/21/20 11:00 02/23/20 09:26 1 TAB Info (Anti-Coagulation Monitoring By Pharmacy) 1 each PRN DAILY PRN 02/21/20 16:15 02/21/20 16:07 1 EACH Ipratropium [place] (Atrovent) 0.5 mg 1X ONCE 02/20/20 19:30 02/20/20 19:31 DC 02/20/20 19:55 0.5 MG Methylprednisolone Sodium Succinate (SOLU-Medrol 125MG VIAL) 60 mg Q8HRS 02/23/20 14:00 Non-Formulary Medication (Albuterol Sulfate (Ventolin Hfa Inhaler)) 18 gm QID 02/21/20 09:00 UNV Non-Formulary Medication (Arformoterol Tartrate (Brovana)) 15 mcg BID 02/21/20 21:00 UNV Non-Formulary Medication (Imatinib Mesylate (Gleevec)) 400 mg DAILYAC 02/21/20 13:00 02/23/20 07:49 400 MG Piperacillin Sod/ Tazobactam Sod (Zosyn Per Pharmacy) 1 each PRN DAILY PRN 02/22/20 08:45 Piperacillin Sod/ Tazobactam Sod 3.375 gm/Sodium Chloride 50 ml @ 100 mls/hr Q6HRS 02/22/20 10:00 02/23/20 05:29 100 MLS/HR Polyethylene Glycol (miraLAX PACKET) 17 gm QODAY 02/23/20 09:00 02/23/20 09:27 17 GM Potassium Chloride (Klor-Con) 10 meq DAILYWBKFT 02/21/20 11:00 02/23/20 09:26 10 MEQ Prednisone (Prednisone) 60 mg DAILY 02/21/20 10:30 02/23/20 11:03 DC 02/23/20 09:25 60 MG Labs: Lab Laboratory Tests Test 02/23/20 07:25 White Blood Count 6.2 x10^3/uL (4.0-11.0) Red Blood Count 2.93 x10^6/uL (3.50-5.40) Hemoglobin 8.9 g/dL (12.0-15.5) Hematocrit 27.0 % (36.0-47.0) Mean Corpuscular Volume 92 fL (79-100) Mean Corpuscular Hemoglobin 30 pg (25-35) Mean Corpuscular Hemoglobin Concent 33 g/dL (31-37) Red Cell Distribution Width 19.0 % (11.5-14.5) Platelet Count 88 x10^3/uL (140-400) Neutrophils (%) (Auto) 89 % (31-73) Lymphocytes (%) (Auto) 3 % (24-48) Monocytes (%) (Auto) 8 % (0-9) Eosinophils (%) (Auto) 0 % (0-3) Basophils (%) (Auto) 0 % (0-3) Neutrophils # (Auto) 5.5 x10^3/uL (1.8-7.7) Lymphocytes # (Auto) 0.2 x10^3/uL (1.0-4.8) Monocytes # (Auto) 0.5 x10^3/uL (0.0-1.1) Eosinophils # (Auto) 0.0 x10^3/uL (0.0-0.7) Basophils # (Auto) 0.0 x10^3/uL (0.0-0.2) Objective: Assessment: COPD exacerbation Pancytopenia improving on steroid History of CML Chronic hypoxic respiratory failure on 2 L O2 at home History of lung cancer status post radiation Coronary artery disease Protein calorie malnutrition Plan: Plan of Care DC Zosyn Restart ceftriaxone Continue doxycycline Follow up cultures and lab. Continue supportive care. Discussed with nursing staff DEN WHITEHEAD MD Feb 23, 2020 11:44
[2020-02-23] MEDS: cefTRIAXone IV Push 2 GM VIAL. IVP SCH (12:15)
[2020-02-23] MEDS: methylPREDNISolone SOD SUCC PF 125 MG/2 ML VIAL. IV SCH ×2 (14:25→21:43)
[2020-02-23 15:00] VITALS: BP 128/62
[2020-02-23 19:00] VITALS: BP 148/110
--- NOTE | 2020-02-23 19:09 | NUR ---
Dr. Gus bull re: bp 149/118.
[2020-02-23] MEDS ORDERED: LISINOPRIL 10 MG TABLET PO ONE (19:30)
--- NOTE | 2020-02-23 21:25 | PDOC2 ---
CONSULT Date of Consult Date of Consult DATE: 02/23/20 TIME: 21:14 Reason for Consult Reason for Consult: CML Referring Physician Referring Physician: Dr Weber Identification/Chief Complaint Chief Complaint Shortness of breath Problems: (1) Chronic myelogenous leukemia (CML), [id number] Source Source: Chart review, Patient History of Present Illness Reason for Visit: Bailey Son is a 69 year old female with chronic myelogenous leukemia and COPD who presented with shortness of breath. She reports gradually worsening SOA associated with productive cough, sputum production and wheeze. Her initial evaluation in the ER which included labs and CXR was consistent with acute exacerbation of COPD. She is currently being managed for it and Pulmonary consultation has been sought. Bailey follows with me for CML and was started on Imatinib for it in January 2020. She has tolerated therapy well so far. She reports taking it daily and has brought it with her to the hospital. Per RN, she has taken it this morning. Past Medical History Cardiovascular: CAD, HTN Pulmonary: COPD, Pneumonia, Other Heme/Onc: Cancer Musculoskeletal: low back pain, Other Endocrine: Osteoporosis Past Surgical History Past Surgical History: Breast Biopsy, Hysterectomy Social History Quit ALCOHOL: rare Drugs: None Current Problem List Problem List Problems Medical Problems: (1) COPD exacerbation Status: Acute (2) Dyspnea Status: Acute Current Medications Current Medications Current Medications Azithromycin 250 ml @ 250 mls/hr 1X ONCE IV Last administered on 02/20/20at 19:56; Start 02/20/20 at 19:15; Stop 02/20/20 at 20:14; Status DC Ceftriaxone Sodium (Rocephin) 1 gm 1X ONCE IVP Last administered on 02/20/20at 19:49; Start 02/20/20 at 19:15; Stop 02/20/20 at 19:16; Status DC Methylprednisolone Sodium Succinate (SOLU-Medrol 125MG VIAL) 125 mg 1X ONCE IV Last administered on 02/20/20 19:40; Start 02/20/20 at 19:15; Stop 02/20/20 at 19:16; Status DC Albuterol Sulfate (Ventolin Neb Soln) 7.5 mg 1X ONCE NEB Last administered on 02/20/20at 19:55; Start 02/20/20 at 19:30; Stop 02/20/20 at 19:31; Status DC Ipratropium [place] (Atrovent) 0.5 mg 1X ONCE NEB Last administered on 02/20/20at 19:55; Start 02/20/20 at 19:30; Stop 02/20/20 at 19:31; Status DC Potassium Chloride (Klor-Con) 40 meq 1X ONCE PO Last administered on 02/20/20at 22:03; Start 02/20/20 at 21:15; Stop 02/20/20 at 21:16; Status DC Potassium Chloride (Klor-Con) 40 meq 1X ONCE PO ; Start 02/20/20 at 22:15; Stop 02/20/20 at 22:36; Status DC Non-Formulary Medication (Albuterol Sulfate (Ventolin Hfa Inhaler)) 18 gm QID IH ; Start 02/21/20 at 09:00; Status UNV Albuterol Sulfate (Ventolin Neb Soln) 2.5 mg RTQID NEB ; Start 02/21/20 at 08:00; Status Cancel Albuterol Sulfate (Ventolin Hfa) 1 puff RTQID INH Last administered on 02/21/20at 12:16; Start 02/21/20 at 08:00; Stop 02/21/20 at 12:25; Status DC Apixaban (Eliquis) 5 mg BID PO Last administered on 02/23/20at 20:51; Start 02/21/20 at 11:00 Diltiazem HCl (Cardizem 24hr Cd) 240 mg DAILY PO Last administered on 02/23/20at 09:26; Start 02/21/20 at 11:00 Furosemide (Lasix) 20 mg DAILY PO Last administered on 02/23/20at 09:26; Start 02/21/20 at 11:00 Albuterol/ Ipratropium (Combivent Respimat 20-100 Mcg) 1 puff RTQID INH ; Start 02/21/20 at 12:00; Stop 02/21/20 at 12:24; Status DC Polyethylene Glycol (miraLAX PACKET) 17 gm QODAY PO Last administered on 02/23/20at 09:27; Start 02/23/20 at 09:00 Amiodarone HCl (Cordarone) 100 mg DAILY PO Last administered on 02/23/20at 09:31; Start 02/21/20 at 13:00 Non-Formulary Medication (Arformoterol Tartrate (Brovana)) 15 mcg BID IH ; Start 02/21/20 at 21:00; Status UNV Calcium/Vitamin D (Oscal D 500mg/ 200uts) 1 tab BIDWMEALS PO Last administered on 02/23/20at 17:43; Start 02/21/20 at 11:00 Guaifenesin (MUCINEX ER with DM) 1 tab BID PO Last administered on 02/23/20at 20:51; Start 02/21/20 at 11:00 Non-Formulary Medication (Imatinib Mesylate (Gleevec)) 400 mg DAILYAC PO Last administered on 02/23/20 07:49; Start 02/21/20 at 13:00 Potassium Chloride (Klor-Con) 10 meq DAILYWBKFT PO Last administered on 02/23/20at 09:26; Start 02/21/20 at 11:00 Albuterol Sulfate (Ventolin Hfa) 1 puff PRN Q6HRS PRN INH WHEEZES; Start 02/21/20 at 12:00; Stop 02/22/20 at 16:02; Status DC Prednisone (Prednisone) 60 mg DAILY PO Last administered on 02/23/20at 09:25; Start 02/21/20 at 10:30; Stop 02/23/20 at 11:03; Status DC Ceftriaxone Sodium (Rocephin) 1 gm Q24H IVP Last administered on 02/21/20 11:26; Start 02/21/20 at 11:00; Stop 02/22/20 at 08:36; Status DC Azithromycin (Zithromax) 250 mg DAILY PO Last administered on 02/21/20at 11:25; Start 02/21/20 at 11:00; Stop 02/21/20 at 12:43; Status DC Albuterol/ Ipratropium (Combivent Respimat 20-100 Mcg) 1 puff RTQID INH Last administered on 02/22/20at 07:57; Start 02/21/20 at 12:30; Stop 02/22/20 at 16 :03; Status DC Doxycycline Hyclate (Vibra-Tab) 100 mg BID PO Last administered on 02/23/20at 20:51; Start 02/21/20 at 21:00 Info (Anti-Coagulation Monitoring By Pharmacy) 1 each PRN DAILY PRN MC SEE COMMENTS Last administered on 02/21/20at 16:07; Start 02/21/20 at 16:15 Piperacillin Sod/ Tazobactam Sod (Zosyn Per Pharmacy) 1 each PRN DAILY PRN MC SEE COMMENTS; Start 02/22/20 at 08:45; Stop 02/23/20 at 17:10; Status DC Piperacillin Sod/ Tazobactam Sod 3.375 gm/Sodium Chloride 50 ml @ 100 mls/hr Q6HRS IV Last administered on 02/23/20at 05:29; Start 02/22/20 at 10:00; Stop 02/23/20 at 11:45; Status DC Albuterol/ Ipratropium (Duoneb) 3 ml RTQID NEB Last administered on 02/23/20at 20:13; Start 02/22/20 at 16:00 Budesonide (Pulmicort) 0.5 mg RTBID NEB Last administered on 02/23/20at 20:13; Start 02/22/20 at 20:00 Albuterol/ Ipratropium (Duoneb) 3 ml STK-MED ONCE .ROUTE ; Start 02/22/20 at 13:12; Stop 02/22/20 at 13:12; Status DC Albuterol Sulfate (Ventolin Neb Soln) 2.5 mg PRN Q6HRS PRN NEB WHEEZING; Start 02/22/20 at 16:15 Methylprednisolone Sodium Succinate (SOLU-Medrol 125MG VIAL) 60 mg Q8HRS IV Last administered on 02/23/20at 14:25; Start 02/23/20 at 14:00 Ceftriaxone Sodium (Rocephin) 2 gm Q24H IVP Last administered on 02/23/20at 12:15; Start 02/23/20 at 12:00 Lisinopril (Prinivil) 10 mg 1X ONCE PO Last administered on 02/23/20at 19:39; Start 02/23/20 at 19:30; Stop 02/23/20 at 19:31; Status DC Lisinopril (Prinivil) 10 mg DAILY PO ; Start 02/24/20 at 09:00 Active Scripts Active Ventolin Hfa Inhaler (Albuterol Sulfate) 18 Gm Hfa.aer.ad 18 Gm IH QID Reported Gleevec (Imatinib Mesylate) 400 Mg Tablet 400 Mg PO DAILYAC Advil (Ibuprofen) 200 Mg Tablet 200 Mg PO PRN PRN Budesonide 0.5 Mg/2 Ml Ampul.neb 1 Vial NEB BID Duoneb 0.5-3(2.5) Mg/3 Ml (Albuterol/Ipratropium) 3 Ml Ampul.neb 3 Ml NEB QID Miralax (Polyethylene Glycol 3350) 17 Gm Powd.pack 1 Packet PO QODAY 2 Days dissolve in water Mucus Relief ER (Guaifenesin) 1,200 Mg Tab.er.12h 1,200 Mg PO DAILY Alendronate Sodium 70 Mg Tablet 1 Tab PO WEEKLY Eliquis (Apixaban) 5 Mg Tablet 5 Mg PO BID Restart tomorrow 01/12/2020 [Vitamin D2] 50,000 Units PO WEEKLY Furosemide 20 Mg Tablet 1 Tab PO DAILY Klor-Con 10 (Potassium Chloride) 10 Meq Tablet.er 1 Tab PO DAILY 30 Days Diltiazem 24Hr Cd (Diltiazem HCl) 240 Mg Cap.er.24h 1 Cap PO DAILY 30 Days Amiodarone Hcl 100 Mg Tablet 1 Tab PO DAILY 30 Days Calcium 600 + Vit D Caplet (Calcium Carbonate/Vitamin D3) 1 Each Tablet 1 Tab PO BID 30 Days Brovana (Arformoterol Tartrate) 15 Mcg/2 Ml Vial.neb 15 Mcg IH BID Levalbuterol Concentrate (Levalbuterol Hcl) 1.25 Mg/0.5 Ml Vial.neb 1.25 Mg IH QID Allergies Allergies: Coded Allergies: acetaminophen (Verified Allergy, Severe, Hallucinations, 01/11/20) oxycodone (Verified Allergy, Severe, Hallucinations, 01/11/20) ROS General: YES: Chills, Fatigue; No: Night Sweats PSYCHOLOGICAL ROS: No: Anxiety, Behavioral Disorder Eyes: No Blurry vision, No Decreased vision HEENT: No: Oral lesions, Sinus pain ALLERGY AND IMMUNOLOGY: No: Nasal Congestion Hematological and Lymphatic: No: Bleeding Problems, Blood Clots ENDOCRINE: No: Mood Swings, Palpitations Breast: No New/Changing Breast Lumps Respiratory: YES: Cough, Shortness of breath, Sputum Changes, Wheezing; No: Hemoptysis, Pleuritic Pain Cardiovascular: No Palpitations, No Orthopnea Gastrointestinal: No Nausea, No Vomiting Genitourinary: No Dysuria, No Flank Pain Musculoskeletal: No Gait Disturbance, No Joint Pain Neurological: No Behavorial Changes, No Headaches Skin: No Dry Skin, No Rash Physical Exam General: Alert, Oriented X3, Cooperative HEENT: Atraumatic Lungs: Other (Wheeze auscultated in all lung love) Heart: Regular rate, No murmurs Abdomen: Normal bowel sounds, Soft Extremities: No clubbing Skin: No rashes Neuro: Normal gait Psych/Mental Status: Mental status NL MUSCULOSKELETAL: No swelling Vitals VITALS Vital Signs Date Time Temp Pulse Resp B/P (MAP) Pulse Ox O2 Delivery O2 Flow Rate FiO2 02/23/20 20:15 97 Nasal Cannula 3.0 02/23/20 19:39 103 141/108 02/23/20 19:00 98.0 21 98.0 Labs Labs Laboratory Tests Test 02/22/20 04:15 02/23/20 07:25 White Blood Count 2.9 x10^3/uL (4.0-11.0) 6.2 x10^3/uL (4.0-11.0) Red Blood Count 3.03 x10^6/uL (3.50-5.40) 2.93 x10^6/uL (3.50-5.40) Hemoglobin 9.4 g/dL (12.0-15.5) 8.9 g/dL (12.0-15.5) Hematocrit 27.7 % (36.0-47.0) 27.0 % (36.0-47.0) Mean Corpuscular Volume 91 fL (79-100) 92 fL (79-100) Mean Corpuscular Hemoglobin 31 pg (25-35) 30 pg (25-35) Mean Corpuscular Hemoglobin Concent 34 g/dL (31-37) 33 g/dL (31-37) Red Cell Distribution Width 17.8 % (11.5-14.5) 19.0 % (11.5-14.5) Platelet Count 78 x10^3/uL (140-400) 88 x10^3/uL (140-400) Neutrophils (%) (Auto) 92 % (31-73) 89 % (31-73) Lymphocytes (%) (Auto) 3 % (24-48) 3 % (24-48) Monocytes (%) (Auto) 5 % (0-9) 8 % (0-9) Eosinophils (%) (Auto) 0 % (0-3) 0 % (0-3) Basophils (%) (Auto) 0 % (0-3) 0 % (0-3) Neutrophils # (Auto) 2.7 x10^3/uL (1.8-7.7) 5.5 x10^3/uL (1.8-7.7) Lymphocytes # (Auto) 0.1 x10^3/uL (1.0-4.8) 0.2 x10^3/uL (1.0-4.8) Monocytes # (Auto) 0.1 x10^3/uL (0.0-1.1) 0.5 x10^3/uL (0.0-1.1) Eosinophils # (Auto) 0.0 x10^3/uL (0.0-0.7) 0.0 x10^3/uL (0.0-0.7) Basophils # (Auto) 0.0 x10^3/uL (0.0-0.2) 0.0 x10^3/uL (0.0-0.2) Segmented Neutrophils % 90 % (35-66) Band Neutrophils % 1 % (0-9) Lymphocytes % 4 % (24-48) Monocytes % 5 % (0-10) Platelet Estimate Decreased (ADEQUATE) Basophilic Stippling Present Sodium Level 140 mmol/L (136-145) Potassium Level 3.9 mmol/L (3.5-5.1) Chloride Level 101 mmol/L (98-107) Carbon Dioxide Level 36 mmol/L (21-32) Anion Gap 3 (6-14) Blood Urea Nitrogen 13 mg/dL (7-20) Creatinine 0.7 mg/dL (0.6-1.0) Estimated GFR (Cockcroft-Gault) 83.2 BUN/Creatinine Ratio 19 (6-20) Glucose Level 120 mg/dL (70-99) Calcium Level 7.9 mg/dL (8.5-10.1) Total Bilirubin 0.4 mg/dL (0.2-1.0) Aspartate Amino Transf (AST/SGOT) 19 U/L (15-37) Alanine Aminotransferase (ALT/SGPT) 21 U/L (14-59) Alkaline Phosphatase 85 U/L (46-116) Total Protein 5.4 g/dL (6.4-8.2) Albumin 2.6 g/dL (3.4-5.0) Albumin/Globulin Ratio 0.9 (1.0-1.7) Laboratory Tests Test 02/23/20 07:25 White Blood Count 6.2 x10^3/uL (4.0-11.0) Red Blood Count 2.93 x10^6/uL (3.50-5.40) Hemoglobin 8.9 g/dL (12.0-15.5) Hematocrit 27.0 % (36.0-47.0) Mean Corpuscular Volume 92 fL (79-100) Mean Corpuscular Hemoglobin 30 pg (25-35) Mean Corpuscular Hemoglobin Concent 33 g/dL (31-37) Red Cell Distribution Width 19.0 % (11.5-14.5) Platelet Count 88 x10^3/uL (140-400) Neutrophils (%) (Auto) 89 % (31-73) Lymphocytes (%) (Auto) 3 % (24-48) Monocytes (%) (Auto) 8 % (0-9) Eosinophils (%) (Auto) 0 % (0-3) Basophils (%) (Auto) 0 % (0-3) Neutrophils # (Auto) 5.5 x10^3/uL (1.8-7.7) Lymphocytes # (Auto) 0.2 x10^3/uL (1.0-4.8) Monocytes # (Auto) 0.5 x10^3/uL (0.0-1.1) Eosinophils # (Auto) 0.0 x10^3/uL (0.0-0.7) Basophils # (Auto) 0.0 x10^3/uL (0.0-0.2) Images Images Reviewed CXR Assessment/Plan Assessment/Plan Assessment: Chronic myelogenous leukemia, not in remission COPD exacerbation Acute on chronic hypoxic respiratory failure Recommendations: -Continue with Imatinib 400 mg daily -Suspect anemia and thrombocytopenia is secondary to Gleevec. Continue same dose at this time -Continue steroids for COPD exacerbation, per Dr Nguyen -Hemanth per Dr Jasso -Rest per hospitalist -She will be scheduled for follow-up 2 weeks post-discharge with me Thank you for the consult [place] Manthravadi MD Hematology-Oncology LULU ROLLINS MD Feb 23, 2020 21:25
[2020-02-23 23:00] VITALS: BP 155/62
[2020-02-24] VITALS (7 sets, daily range): BP systolic 114–168; BP diastolic 36–74
[2020-02-24 05:22] LABS: BASO % 0 % (0-3); EOS % 0 % (0-3); HEMATOCRIT 27.9 % (36.0-47.0); HEMOGLOBIN 9.7 g/dL (12.0-15.5); LYMPH % 1 % (24-48); MEAN CORPUSCULAR HEMOGLOBIN 32 pg (25-35); MEAN CORPUSCULAR HGB CONC 35 g/dL (31-37); MEAN CORPUSCULAR VOLUME 92 fL (79-100); MONO # 0.1 x10^3/uL (0.0-1.1); MONO % 3 % (0-9); NEUT # 4.8 x10^3/uL (1.8-7.7); NEUT % 96 % (31-73); PLATELET COUNT 72 x10^3/uL (140-400); RED BLOOD COUNT 3.02 x10^6/uL (3.50-5.40); RED CELL DISTRIBUTION WIDTH 18.4 % (11.5-14.5)
[2020-02-24 05:31] LABS: CALCIUM 8.2 mg/dL (8.5-10.1); CREATININE 0.6 mg/dL (0.6-1.0); GFR 99.4; POTASSIUM 3.8 mmol/L (3.5-5.1)
[2020-02-24] MEDS: methylPREDNISolone SOD SUCC PF 125 MG/2 ML VIAL. IV SCH ×3 (06:11→21:37)
[2020-02-24] MEDS: GLEEVEC PO SCH (06:11)
[2020-02-24] MEDS: BUDESONIDE 0.5 MG/2 ML NEBU. NEB SCH ×2 (07:38→20:28)
[2020-02-24] MEDS: IPRATRPIUM/ALBUTEROL 0.5/2.5MG 3 ML NEBU. NEB SCH ×4 (07:38→20:28)
[2020-02-24] MEDS: CALCIUM CARB/VIT D3 500/200 TABLET. PO SCH ×2 (08:00→17:00)
[2020-02-24] MEDS: POTASSIUM CHLORIDE 10 MEQ TABLET.ER. PO SCH (08:00)
--- NOTE | 2020-02-24 08:21 | NUR ---
Pt. c/o SOB, sating 77% on 3L NC. Rapid Response called.
--- NOTE | 2020-02-24 08:29 | NUR ---
Dr. Nguyen notified of pt's resp distress. Telephone orders received. Pt. sating 72% on 4L.
--- NOTE | 2020-02-24 08:38 | NUR ---
MARKET CONSULTANT and RT at the bedside to place bipap. sating 72% 4L NC.
[2020-02-24] MEDS: APIXABAN 5 MG TABLET. PO SCH ×2 (08:39→21:37)
[2020-02-24] MEDS: AMIODARONE HCL 200 MG TABLET. PO SCH (08:39)
[2020-02-24] MEDS: guaiFENesin DM 600/30MG 1 TAB TAB.ER.12H PO SCH ×2 (08:40→21:00)
[2020-02-24] MEDS: LISINOPRIL 10 MG TABLET PO SCH (08:40)
[2020-02-24] MEDS: DOXYCYCLINE HYCLATE 100 MG TABLET PO SCH ×2 (08:40→21:37)
[2020-02-24] MEDS: FUROSEMIDE 20 MG TABLET PO SCH (08:40)
--- NOTE | 2020-02-24 08:41 | NUR ---
Am meds held due to pt's resp. distress. Bipap placed, pt sating 99%. 155/57, 99.
[2020-02-24 09:03] LABS: BASE EXCESS ABG 8 mmol/L (-3-3); HCO3 ABG 35 mmol/L (21-28); PO2 ABG 87 mmHg (65-108); SAT O2 ABG 96 % (92-99)
--- NOTE | 2020-02-24 09:04 | NUR ---
Rapid called on patient, arrived on unit at 0826. Patient in clear respiratory distress, alert and oriented, able to answer questions appropriately. Patient has audible wheeze, had just finished up a breathing treatment. Patient's RN had just got off the phone with Dr. Nguyen who wanted to increase her oxygen from 2L NC to 4L NC and get a stat ABG. Patient was placed on BiPAP, ABG drawn, Dr. Nguyen notified. Patient will move to [facility], patient's niece was notified. Addendum: 02/24/20 at 0909 by MARISA MARTINEZ RN Amended: Links added.
[2020-02-24 09:05] LABS: FIO2 ABG 30; PCO2 ABG 70 mmHg (35-46)
--- NOTE | 2020-02-24 09:13 | EKG ---
[facility] [address] [place] [address] Test Date: 2020-02-24 Test Time: 09:09:00 Pat Name: JEM LA Department: Room: 442 Gender: F Mortgage Broker: KATARINA : 1950 Requested By: YENIFER BARKER Order Number: [id number] Reading MD: Measurements Intervals [place] Rate: 96 P: 90 MN: 118 QRS: -49 QRSD: 94 T: 66 QT: 352 QTc: 446 Interpretive Statements SINUS RHYTHM ABNORMAL LEFT AXIS DEVIATION LEFT ANTERIOR FASCICULAR BLOCK ABNORMAL ECG RI6.02 Compared to ECG 02/20/2020 19:30:10 No significant changes
--- NOTE | 2020-02-24 09:50 | NUR ---
SW following. Discussed with RN, services arranged through [facility]. Has oxygen at home. IV zosyn stopped - now on ceftriaxone. Pt transferring to [address] [place] [address]. SW will continue to follow.
--- NOTE | 2020-02-24 09:50 | PDOC ---
Infectious Disease Note Subjective: Subjective Pt currently on bipap had rapid response earlier this am with worsening sob no f/n/v/d Vital Signs: Vital Signs Vital Signs Date Time Temp Pulse Resp B/P (MAP) Pulse Ox O2 Delivery O2 Flow Rate FiO2 02/24/20 08:40 97 BiPAP/CPAP 02/24/20 08:40 94 160/74 02/24/20 07:38 2.0 02/24/20 07:15 97.4 22 97.4 Physical Exam: PHYSICAL EXAM GENERAL: Alert, oriented x 3 female, sitting upright in bed, in no acute distress. HEENT: Normocephalic, atraumatic, anicteric. Nasal O2 present. NECK: Supple. LUNGS: Decreased breath sounds. Scattered expiratory wheezing. HEART: S1, S2. ABDOMEN: Soft, nontender, nondistended. EXTREMITIES: No edema, no cyanosis. NEUROLOGIC: Alert and oriented x 3, grossly nonfocal. PSYCHIATRIC: Cooperative, appropriate mood and affect. DERMATOLOGIC: Warm and dry. No generalized rash. Medications: Inpatient Meds: Current Medications Medications (Trade) Dose Ordered Sig/Tor[place] Start Time Stop Time Status Last Admin Dose Admin Albuterol Sulfate (Ventolin Hfa) 1 puff PRN Q6HRS PRN 02/21/20 12:00 02/22/20 16:02 DC Albuterol Sulfate (Ventolin Neb Soln) 2.5 mg PRN Q6HRS PRN 02/22/20 16:15 02/24/20 00:14 2.5 MG Albuterol/ Ipratropium (Combivent Respimat 20-100 Mcg) 1 puff RTQID 02/21/20 12:30 02/22/20 16:03 DC 02/22/20 07:57 1 PUFF Albuterol/ Ipratropium (Duoneb) 3 ml STK-MED ONCE 02/22/20 13:12 02/22/20 13:12 DC Amiodarone HCl (Cordarone) 100 mg DAILY 02/21/20 13:00 02/23/20 09:31 100 MG Apixaban (Eliquis) 5 mg BID 02/21/20 11:00 02/23/20 20:51 5 MG Azithromycin (Zithromax) 250 mg DAILY 02/21/20 11:00 02/21/20 12:43 DC 02/21/20 11:25 250 MG Budesonide (Pulmicort) 0.5 mg RTBID 02/22/20 20:00 02/24/20 07:38 0.5 MG Calcium/Vitamin D (Oscal D 500mg/ 200uts) 1 tab BIDWMEALS 02/21/20 11:00 02/23/20 17:43 1 TAB Ceftriaxone Sodium (Rocephin) 2 gm Q24H 02/23/20 12:00 02/23/20 12:15 2 GM Diltiazem HCl (Cardizem 24hr Cd) 240 mg DAILY 02/21/20 11:00 02/23/20 09:26 240 MG Doxycycline Hyclate (Vibra-Tab) 100 mg BID 02/21/20 21:00 02/23/20 20:51 100 MG Furosemide (Lasix) 20 mg DAILY 02/21/20 11:00 02/23/20 09:26 20 MG Guaifenesin (MUCINEX ER with DM) 1 tab BID 02/21/20 11:00 02/23/20 20:51 1 TAB Info (Anti-Coagulation Monitoring By Pharmacy) 1 each PRN DAILY PRN 02/21/20 16:15 02/21/20 16:07 1 EACH Ipratropium [place] (Atrovent) 0.5 mg 1X ONCE 02/20/20 19:30 02/20/20 19:31 DC 02/20/20 19:55 0.5 MG Lisinopril (Prinivil) 10 mg DAILY 02/24/20 09:00 Methylprednisolone Sodium Succinate (SOLU-Medrol 125MG VIAL) 60 mg Q8HRS 02/23/20 14:00 02/24/20 06:11 60 MG Non-Formulary Medication (Albuterol Sulfate (Ventolin Hfa Inhaler)) 18 gm QID 02/21/20 09:00 UNV Non-Formulary Medication (Arformoterol Tartrate (Brovana)) 15 mcg BID 02/21/20 21:00 UNV Non-Formulary Medication (Imatinib Mesylate (Gleevec)) 400 mg DAILYAC 02/21/20 13:00 02/24/20 06:11 400 MG Piperacillin Sod/ Tazobactam Sod (Zosyn Per Pharmacy) 1 each PRN DAILY PRN 02/22/20 08:45 02/23/20 17:10 DC Piperacillin Sod/ Tazobactam Sod 3.375 gm/Sodium Chloride 50 ml @ 100 mls/hr Q6HRS 02/22/20 10:00 02/23/20 11:45 DC 02/23/20 05:29 100 MLS/HR Polyethylene Glycol (miraLAX PACKET) 17 gm QODAY 02/23/20 09:00 02/23/20 09:27 17 GM Potassium Chloride (Klor-Con) 10 meq DAILYWBKFT 02/21/20 11:00 02/23/20 09:26 10 MEQ Prednisone (Prednisone) 60 mg DAILY 02/21/20 10:30 02/23/20 11:03 DC 02/23/20 09:25 60 MG Labs: Lab Laboratory Tests Test 02/24/20 04:50 02/24/20 08:50 White Blood Count 5.0 x10^3/uL (4.0-11.0) Red Blood Count 3.02 x10^6/uL (3.50-5.40) Hemoglobin 9.7 g/dL (12.0-15.5) Hematocrit 27.9 % (36.0-47.0) Mean Corpuscular Volume 92 fL (79-100) Mean Corpuscular Hemoglobin 32 pg (25-35) Mean Corpuscular Hemoglobin Concent 35 g/dL (31-37) Red Cell Distribution Width 18.4 % (11.5-14.5) Platelet Count 72 x10^3/uL (140-400) Neutrophils (%) (Auto) 96 % (31-73) Lymphocytes (%) (Auto) 1 % (24-48) Monocytes (%) (Auto) 3 % (0-9) Eosinophils (%) (Auto) 0 % (0-3) Basophils (%) (Auto) 0 % (0-3) Neutrophils # (Auto) 4.8 x10^3/uL (1.8-7.7) Lymphocytes # (Auto) 0.0 x10^3/uL (1.0-4.8) Monocytes # (Auto) 0.1 x10^3/uL (0.0-1.1) Eosinophils # (Auto) 0.0 x10^3/uL (0.0-0.7) Basophils # (Auto) 0.0 x10^3/uL (0.0-0.2) Sodium Level 140 mmol/L (136-145) Potassium Level 3.8 mmol/L (3.5-5.1) Chloride Level 99 mmol/L (98-107) Carbon Dioxide Level 37 mmol/L (21-32) Anion Gap 4 (6-14) Blood Urea Nitrogen 19 mg/dL (7-20) Creatinine 0.6 mg/dL (0.6-1.0) Estimated GFR (Cockcroft-Gault) 99.4 Glucose Level 162 mg/dL (70-99) Calcium Level 8.2 mg/dL (8.5-10.1) Troponin I Quantitative 0.050 ng/mL (0.000-0.055) O2 Saturation 96 % (92-99) Arterial Blood pH 7.32 (7.35-7.45) Arterial Blood pCO2 at Patient Temp 70 mmHg (35-46) Arterial Blood pO2 at Patient Temp 87 mmHg (65-108) Arterial Blood HCO3 35 mmol/L (21-28) Arterial Blood Base Excess 8 mmol/L (-3-3) FiO2 30 Objective: Assessment: COPD exacerbation Pancytopenia improving on steroid History of CML Chronic hypoxic respiratory failure on 2 L O2 at home History of lung cancer status post radiation Coronary artery disease Protein calorie malnutrition Plan: Plan of Care cont ceftriaxone/ doxycycline on steroids Follow up cultures and lab. Continue supportive care. Discussed with nursing staff DEN WHITEHEAD MD Feb 24, 2020 09:50
--- NOTE | 2020-02-24 09:56 | NUR ---
Dr. Nguyen notfied of EKG and Troponin results. No new telephone orders received. Pt. to tx to 2nd floor when bed is available.
--- NOTE | 2020-02-24 09:56 | PDOC ---
PULMONARY PROGRESS NOTES DATE: 02/24/20 TIME: 09:52 Subjective had rapid response today with increase SOA, worsening hypercapnia, CP on bipap now Vitals Vital Signs Date Time Temp Pulse Resp B/P (MAP) Pulse Ox O2 Delivery O2 Flow Rate FiO2 02/24/20 08:40 97 BiPAP/CPAP 02/24/20 08:40 94 160/74 02/24/20 07:38 2.0 02/24/20 07:15 97.4 22 97.4 General: Mild Distress Lungs: Other (decreased bs) Cardiovascular: S1 Abdomen: Soft Extremities: No Edema Skin: Warm Labs Laboratory Tests Test 02/23/20 07:25 02/24/20 04:50 02/24/20 08:50 White Blood Count 6.2 x10^3/uL (4.0-11.0) 5.0 x10^3/uL (4.0-11.0) Red Blood Count 2.93 x10^6/uL (3.50-5.40) 3.02 x10^6/uL (3.50-5.40) Hemoglobin 8.9 g/dL (12.0-15.5) 9.7 g/dL (12.0-15.5) Hematocrit 27.0 % (36.0-47.0) 27.9 % (36.0-47.0) Mean Corpuscular Volume 92 fL (79-100) 92 fL (79-100) Mean Corpuscular Hemoglobin 30 pg (25-35) 32 pg (25-35) Mean Corpuscular Hemoglobin Concent 33 g/dL (31-37) 35 g/dL (31-37) Red Cell Distribution Width 19.0 % (11.5-14.5) 18.4 % (11.5-14.5) Platelet Count 88 x10^3/uL (140-400) 72 x10^3/uL (140-400) Neutrophils (%) (Auto) 89 % (31-73) 96 % (31-73) Lymphocytes (%) (Auto) 3 % (24-48) 1 % (24-48) Monocytes (%) (Auto) 8 % (0-9) 3 % (0-9) Eosinophils (%) (Auto) 0 % (0-3) 0 % (0-3) Basophils (%) (Auto) 0 % (0-3) 0 % (0-3) Neutrophils # (Auto) 5.5 x10^3/uL (1.8-7.7) 4.8 x10^3/uL (1.8-7.7) Lymphocytes # (Auto) 0.2 x10^3/uL (1.0-4.8) 0.0 x10^3/uL (1.0-4.8) Monocytes # (Auto) 0.5 x10^3/uL (0.0-1.1) 0.1 x10^3/uL (0.0-1.1) Eosinophils # (Auto) 0.0 x10^3/uL (0.0-0.7) 0.0 x10^3/uL (0.0-0.7) Basophils # (Auto) 0.0 x10^3/uL (0.0-0.2) 0.0 x10^3/uL (0.0-0.2) Sodium Level 140 mmol/L (136-145) Potassium Level 3.8 mmol/L (3.5-5.1) Chloride Level 99 mmol/L (98-107) Carbon Dioxide Level 37 mmol/L (21-32) Anion Gap 4 (6-14) Blood Urea Nitrogen 19 mg/dL (7-20) Creatinine 0.6 mg/dL (0.6-1.0) Estimated GFR (Cockcroft-Gault) 99.4 Glucose Level 162 mg/dL (70-99) Calcium Level 8.2 mg/dL (8.5-10.1) Troponin I Quantitative 0.050 ng/mL (0.000-0.055) O2 Saturation 96 % (92-99) Arterial Blood pH 7.32 (7.35-7.45) Arterial Blood pCO2 at Patient Temp 70 mmHg (35-46) Arterial Blood pO2 at Patient Temp 87 mmHg (65-108) Arterial Blood HCO3 35 mmol/L (21-28) Arterial Blood Base Excess 8 mmol/L (-3-3) FiO2 30 Laboratory Tests Test 02/24/20 04:50 02/24/20 08:50 White Blood Count 5.0 x10^3/uL (4.0-11.0) Red Blood Count 3.02 x10^6/uL (3.50-5.40) Hemoglobin 9.7 g/dL (12.0-15.5) Hematocrit 27.9 % (36.0-47.0) Mean Corpuscular Volume 92 fL (79-100) Mean Corpuscular Hemoglobin 32 pg (25-35) Mean Corpuscular Hemoglobin Concent 35 g/dL (31-37) Red Cell Distribution Width 18.4 % (11.5-14.5) Platelet Count 72 x10^3/uL (140-400) Neutrophils (%) (Auto) 96 % (31-73) Lymphocytes (%) (Auto) 1 % (24-48) Monocytes (%) (Auto) 3 % (0-9) Eosinophils (%) (Auto) 0 % (0-3) Basophils (%) (Auto) 0 % (0-3) Neutrophils # (Auto) 4.8 x10^3/uL (1.8-7.7) Lymphocytes # (Auto) 0.0 x10^3/uL (1.0-4.8) Monocytes # (Auto) 0.1 x10^3/uL (0.0-1.1) Eosinophils # (Auto) 0.0 x10^3/uL (0.0-0.7) Basophils # (Auto) 0.0 x10^3/uL (0.0-0.2) Sodium Level 140 mmol/L (136-145) Potassium Level 3.8 mmol/L (3.5-5.1) Chloride Level 99 mmol/L (98-107) Carbon Dioxide Level 37 mmol/L (21-32) Anion Gap 4 (6-14) Blood Urea Nitrogen 19 mg/dL (7-20) Creatinine 0.6 mg/dL (0.6-1.0) Estimated GFR (Cockcroft-Gault) 99.4 Glucose Level 162 mg/dL (70-99) Calcium Level 8.2 mg/dL (8.5-10.1) Troponin I Quantitative 0.050 ng/mL (0.000-0.055) O2 Saturation 96 % (92-99) Arterial Blood pH 7.32 (7.35-7.45) Arterial Blood pCO2 at Patient Temp 70 mmHg (35-46) Arterial Blood pO2 at Patient Temp 87 mmHg (65-108) Arterial Blood HCO3 35 mmol/L (21-28) Arterial Blood Base Excess 8 mmol/L (-3-3) FiO2 30 Medications Active Scripts Medications Dose Route/Sig Max Daily Dose Days Date Category Dose Instructions Gleevec (Imatinib Mesylate) 400 Mg Tablet 400 Mg PO DAILYAC 02/21/20 Reported Advil (Ibuprofen) 200 Mg Tablet 200 Mg PO PRN PRN 01/11/20 Reported Budesonide 0.5 Mg/2 Ml Ampul.neb 1 Vial NEB BID 01/11/20 Reported Duoneb 0.5-3(2.5) Mg/3 Ml (Albuterol/Ipratropium) 3 Ml Ampul.neb 3 Ml NEB QID 01/11/20 Reported Miralax (Polyethylene Glycol 3350) 17 Gm Powd.pack 1 Packet PO QODAY 2 01/11/20 Reported dissolve in water Mucus Relief ER (Guaifenesin) 1,200 Mg Tab.er.12h 1,200 Mg PO DAILY 01/11/20 Reported Alendronate Sodium 70 Mg Tablet 1 Tab PO WEEKLY 01/11/20 Reported Eliquis (Apixaban) 5 Mg Tablet 5 Mg PO BID 01/11/20 Reported Restart tomorrow 01/12/2020 [Vitamin D2] 50,000 Units PO WEEKLY 01/11/20 Reported Furosemide 20 Mg Tablet 1 Tab PO DAILY 01/11/20 Reported Klor-Con 10 (Potassium Chloride) 10 Meq Tablet.er 1 Tab PO DAILY 30 01/11/20 Reported Diltiazem 24Hr Cd (Diltiazem HCl) 240 Mg Cap.er.24h 1 Cap PO DAILY 30 01/11/20 Reported Amiodarone Hcl 100 Mg Tablet 1 Tab PO DAILY 30 01/11/20 Reported Calcium 600 + Vit D Caplet (Calcium Carbonate/Vitamin D3) 1 Each Tablet 1 Tab PO BID 30 01/11/20 Reported Ventolin Hfa Inhaler (Albuterol Sulfate) 18 Gm Hfa.aer.ad 18 Gm IH QID 10/13/13 Rx Brovana (Arformoterol Tartrate) 15 Mcg/2 Ml Vial.neb 15 Mcg IH BID 10/11/13 Reported Levalbuterol Concentrate (Levalbuterol Hcl) 1.25 Mg/0.5 Ml Vial.neb 1.25 Mg IH QID 06/24/13 Reported Comments CXR: IMPRESSION: Small bilateral pleural effusions, with adjacent airspace disease likely atelectasis. Impression . IMPRESSION: 1. Dyspnea with acute on chronic hypercapnic RF this am, on BIPAP .(secondary to acute exacerbation of chronic obstructive pulmonary disease. on home O2 at 2 litres. ) 2. Acute tracheobronchitis. 3. The patient with history of lung cancer, was not a surgical candidate, treated with radiation about 5 years ago. 4. History of leukemia, details are not available. Plan . 1. Continue with present BIPAP, f/u ABG. avoid hyperoxia 2. Continue with nebulizers. 3. Continue with empiric antibiotics. 4. Eliquis per PCP. 5. IV steroids 60 Iv q8 6. check EKG/ troponin Discussed with RN. DNR YENIFER BARKER MD Feb 24, 2020 09:56
--- NOTE | 2020-02-24 11:20 | NUR ---
Pt. transferred to rm 250 via bed per SATISH lopez and DAMIEN Zacarias. Family at bedside.
[2020-02-24] MEDS: cefTRIAXone IV Push 2 GM VIAL. IVP SCH (12:00)
[2020-02-24 13:14] LABS: BASE EXCESS ABG 7 mmol/L (-3-3); HCO3 ABG 33 mmol/L (21-28); PCO2 ABG 54 mmHg (35-46); PO2 ABG 91 mmHg (65-108); SAT O2 ABG 97 % (92-99)
[2020-02-24 13:15] LABS: FIO2 ABG 30
--- NOTE | 2020-02-24 13:33 | PDOC ---
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 Continue with empiric antibiotics. Eliquis Continue oral prednisone. ID CONSULT pt/ot CONSULT ONCOLOGY D/W RN 38 MIN pt exam, chart review, > 50% of time spent with exam, chart review, pt care coordination Justicifation of Admission Dx: Justicifation of Admission Dx: Justifications for Admission: Justification of Admission Dx: Yes History of Present Illness History of Present Illness transfer to step-down unit, cont curernt, try BIPAP, is DNR Ms. Son is a 69 year old female with a history of COPD presents with a 2-day history of shortness of breath. She has cough and dyspena, and feels she needs more breathing treatments, but is getting ruled out for COVID currently. NEG she has symtoms are worse with exertion. Patient received nebulizer prior to arrival with some improvement. History of right lung cancer treated with radiation close to 5 years ago. No chemo. Leukemia. Vitals Vitals Vital Signs Date Time Temp Pulse Resp B/P (MAP) Pulse Ox O2 Delivery O2 Flow Rate FiO2 02/24/20 11:30 Bi-pap 02/24/20 11:28 98 02/24/20 10:55 97.7 94 20 114/36 (62) 2.5 97.7 Physical Exam Physical Exam GENERAL: Alert, oriented x 3 female, sitting upright in bed, in no acute distress. HEENT: Normocephalic, atraumatic, anicteric. Nasal O2 present. NECK: Supple. LUNGS: Decreased breath sounds. Scattered expiratory wheezing. HEART: S1, S2. ABDOMEN: Soft, nontender, nondistended. EXTREMITIES: No edema, no cyanosis. NEUROLOGIC: Alert and oriented x 3, grossly nonfocal. PSYCHIATRIC: Cooperative, appropriate mood and affect. DERMATOLOGIC: Warm and dry. No generalized rash. General: Alert, Oriented X3, Cooperative Heart: Regular rate, No murmurs Lungs: Other (decreased bs) Abdomen: Normal bowel sounds, Soft Extremities: No clubbing Skin: No rashes Labs LABS Laboratory Tests Test 02/24/20 04:50 02/24/20 08:50 02/24/20 13:07 White Blood Count 5.0 x10^3/uL (4.0-11.0) Red Blood Count 3.02 x10^6/uL (3.50-5.40) Hemoglobin 9.7 g/dL (12.0-15.5) Hematocrit 27.9 % (36.0-47.0) Mean Corpuscular Volume 92 fL (79-100) Mean Corpuscular Hemoglobin 32 pg (25-35) Mean Corpuscular Hemoglobin Concent 35 g/dL (31-37) Red Cell Distribution Width 18.4 % (11.5-14.5) Platelet Count 72 x10^3/uL (140-400) Neutrophils (%) (Auto) 96 % (31-73) Lymphocytes (%) (Auto) 1 % (24-48) Monocytes (%) (Auto) 3 % (0-9) Eosinophils (%) (Auto) 0 % (0-3) Basophils (%) (Auto) 0 % (0-3) Neutrophils # (Auto) 4.8 x10^3/uL (1.8-7.7) Lymphocytes # (Auto) 0.0 x10^3/uL (1.0-4.8) Monocytes # (Auto) 0.1 x10^3/uL (0.0-1.1) Eosinophils # (Auto) 0.0 x10^3/uL (0.0-0.7) Basophils # (Auto) 0.0 x10^3/uL (0.0-0.2) Sodium Level 140 mmol/L (136-145) Potassium Level 3.8 mmol/L (3.5-5.1) Chloride Level 99 mmol/L (98-107) Carbon Dioxide Level 37 mmol/L (21-32) Anion Gap 4 (6-14) Blood Urea Nitrogen 19 mg/dL (7-20) Creatinine 0.6 mg/dL (0.6-1.0) Estimated GFR (Cockcroft-Gault) 99.4 Glucose Level 162 mg/dL (70-99) Calcium Level 8.2 mg/dL (8.5-10.1) Troponin I Quantitative 0.050 ng/mL (0.000-0.055) O2 Saturation 96 % (92-99) 97 % (92-99) Arterial Blood pH 7.32 (7.35-7.45) 7.40 (7.35-7.45) Arterial Blood pCO2 at Patient Temp 70 mmHg (35-46) 54 mmHg (35-46) Arterial Blood pO2 at Patient Temp 87 mmHg (65-108) 91 mmHg (65-108) Arterial Blood HCO3 35 mmol/L (21-28) 33 mmol/L (21-28) Arterial Blood Base Excess 8 mmol/L (-3-3) 7 mmol/L (-3-3) FiO2 30 30 Assessment and Plan Assessmemt and Plan Problems Medical Problems: (1) COPD exacerbation Status: Acute (2) Dyspnea Status: Acute Comment Review of Relevant I have reviewed the following items la (where applicable) has been applied. Labs Laboratory Tests Test 02/23/20 07:25 02/24/20 04:50 02/24/20 08:50 02/24/20 13:07 White Blood Count 6.2 x10^3/uL (4.0-11.0) 5.0 x10^3/uL (4.0-11.0) Red Blood Count 2.93 x10^6/uL (3.50-5.40) 3.02 x10^6/uL (3.50-5.40) Hemoglobin 8.9 g/dL (12.0-15.5) 9.7 g/dL (12.0-15.5) Hematocrit 27.0 % (36.0-47.0) 27.9 % (36.0-47.0) Mean Corpuscular Volume 92 fL (79-100) 92 fL (79-100) Mean Corpuscular Hemoglobin 30 pg (25-35) 32 pg (25-35) Mean Corpuscular Hemoglobin Concent 33 g/dL (31-37) 35 g/dL (31-37) Red Cell Distribution Width 19.0 % (11.5-14.5) 18.4 % (11.5-14.5) Platelet Count 88 x10^3/uL (140-400) 72 x10^3/uL (140-400) Neutrophils (%) (Auto) 89 % (31-73) 96 % (31-73) Lymphocytes (%) (Auto) 3 % (24-48) 1 % (24-48) Monocytes (%) (Auto) 8 % (0-9) 3 % (0-9) Eosinophils (%) (Auto) 0 % (0-3) 0 % (0-3) Basophils (%) (Auto) 0 % (0-3) 0 % (0-3) Neutrophils # (Auto) 5.5 x10^3/uL (1.8-7.7) 4.8 x10^3/uL (1.8-7.7) Lymphocytes # (Auto) 0.2 x10^3/uL (1.0-4.8) 0.0 x10^3/uL (1.0-4.8) Monocytes # (Auto) 0.5 x10^3/uL (0.0-1.1) 0.1 x10^3/uL (0.0-1.1) Eosinophils # (Auto) 0.0 x10^3/uL (0.0-0.7) 0.0 x10^3/uL (0.0-0.7) Basophils # (Auto) 0.0 x10^3/uL (0.0-0.2) 0.0 x10^3/uL (0.0-0.2) Sodium Level 140 mmol/L (136-145) Potassium Level 3.8 mmol/L (3.5-5.1) Chloride Level 99 mmol/L (98-107) Carbon Dioxide Level 37 mmol/L (21-32) Anion Gap 4 (6-14) Blood Urea Nitrogen 19 mg/dL (7-20) Creatinine 0.6 mg/dL (0.6-1.0) Estimated GFR (Cockcroft-Gault) 99.4 Glucose Level 162 mg/dL (70-99) Calcium Level 8.2 mg/dL (8.5-10.1) Troponin I Quantitative 0.050 ng/mL (0.000-0.055) O2 Saturation 96 % (92-99) 97 % (92-99) Arterial Blood pH 7.32 (7.35-7.45) 7.40 (7.35-7.45) Arterial Blood pCO2 at Patient Temp 70 mmHg (35-46) 54 mmHg (35-46) Arterial Blood pO2 at Patient Temp 87 mmHg (65-108) 91 mmHg (65-108) Arterial Blood HCO3 35 mmol/L (21-28) 33 mmol/L (21-28) Arterial Blood Base Excess 8 mmol/L (-3-3) 7 mmol/L (-3-3) FiO2 30 30 Laboratory Tests Test 02/24/20 04:50 02/24/20 08:50 02/24/20 13:07 White Blood Count 5.0 x10^3/uL (4.0-11.0) Red Blood Count 3.02 x10^6/uL (3.50-5.40) Hemoglobin 9.7 g/dL (12.0-15.5) Hematocrit 27.9 % (36.0-47.0) Mean Corpuscular Volume 92 fL (79-100) Mean Corpuscular Hemoglobin 32 pg (25-35) Mean Corpuscular Hemoglobin Concent 35 g/dL (31-37) Red Cell Distribution Width 18.4 % (11.5-14.5) Platelet Count 72 x10^3/uL (140-400) Neutrophils (%) (Auto) 96 % (31-73) Lymphocytes (%) (Auto) 1 % (24-48) Monocytes (%) (Auto) 3 % (0-9) Eosinophils (%) (Auto) 0 % (0-3) Basophils (%) (Auto) 0 % (0-3) Neutrophils # (Auto) 4.8 x10^3/uL (1.8-7.7) Lymphocytes # (Auto) 0.0 x10^3/uL (1.0-4.8) Monocytes # (Auto) 0.1 x10^3/uL (0.0-1.1) Eosinophils # (Auto) 0.0 x10^3/uL (0.0-0.7) Basophils # (Auto) 0.0 x10^3/uL (0.0-0.2) Sodium Level 140 mmol/L (136-145) Potassium Level 3.8 mmol/L (3.5-5.1) Chloride Level 99 mmol/L (98-107) Carbon Dioxide Level 37 mmol/L (21-32) Anion Gap 4 (6-14) Blood Urea Nitrogen 19 mg/dL (7-20) Creatinine 0.6 mg/dL (0.6-1.0) Estimated GFR (Cockcroft-Gault) 99.4 Glucose Level 162 mg/dL (70-99) Calcium Level 8.2 mg/dL (8.5-10.1) Troponin I Quantitative 0.050 ng/mL (0.000-0.055) O2 Saturation 96 % (92-99) 97 % (92-99) Arterial Blood pH 7.32 (7.35-7.45) 7.40 (7.35-7.45) Arterial Blood pCO2 at Patient Temp 70 mmHg (35-46) 54 mmHg (35-46) Arterial Blood pO2 at Patient Temp 87 mmHg (65-108) 91 mmHg (65-108) Arterial Blood HCO3 35 mmol/L (21-28) 33 mmol/L (21-28) Arterial Blood Base Excess 8 mmol/L (-3-3) 7 mmol/L (-3-3) FiO2 30 30 Microbiology 02/20/20 Blood Culture - Preliminary, Resulted NO GROWTH AFTER 3 DAYS Medications Current Medications Azithromycin 250 ml @ 250 mls/hr 1X ONCE IV Last administered on 02/20/20at 19:56; Start 02/20/20 at 19:15; Stop 02/20/20 at 20:14; Status DC Ceftriaxone Sodium (Rocephin) 1 gm 1X ONCE IVP Last administered on 02/20/20at 19:49; Start 02/20/20 at 19:15; Stop 02/20/20 at 19:16; Status DC Methylprednisolone Sodium Succinate (SOLU-Medrol 125MG VIAL) 125 mg 1X ONCE IV Last administered on 02/20/20at 19:40; Start 02/20/20 at 19:15; Stop 02/20/20 at 19:16; Status DC Albuterol Sulfate (Ventolin Neb Soln) 7.5 mg 1X ONCE NEB Last administered on 02/20/20at 19:55; Start 02/20/20 at 19:30; Stop 02/20/20 at 19:31; Status DC Ipratropium [place] (Atrovent) 0.5 mg 1X ONCE NEB Last administered on 02/20/20at 19:55; Start 02/20/20 at 19:30; Stop 02/20/20 at 19:31; Status DC Potassium Chloride (Klor-Con) 40 meq 1X ONCE PO Last administered on 02/20/20at 22:03; Start 02/20/20 at 21:15; Stop 02/20/20 at 21:16; Status DC Potassium Chloride (Klor-Con) 40 meq 1X ONCE PO ; Start 02/20/20 at 22:15; Stop 02/20/20 at 22:36; Status DC Non-Formulary Medication (Albuterol Sulfate (Ventolin Hfa Inhaler)) 18 gm QID IH ; Start 02/21/20 at 09:00; Status UNV Albuterol Sulfate (Ventolin Neb Soln) 2.5 mg RTQID NEB ; Start 02/21/20 at 08:00; Status Cancel Albuterol Sulfate (Ventolin Hfa) 1 puff RTQID INH Last administered on 02/21/20at 12:16; Start 02/21/20 at 08:00; Stop 02/21/20 at 12:25; Status DC Apixaban (Eliquis) 5 mg BID PO Last administered on 02/23/20at 20:51; Start 02/21/20 at 11:00 Diltiazem HCl (Cardizem 24hr Cd) 240 mg DAILY PO Last administered on 02/23/20at 09:26; Start 02/21/20 at 11:00 Furosemide (Lasix) 20 mg DAILY PO Last administered on 02/23/20at 09:26; Start 02/21/20 at 11:00 Albuterol/ Ipratropium (Combivent Respimat 20-100 Mcg) 1 puff RTQID INH ; Start 02/21/20 at 12:00; Stop 02/21/20 at 12:24; Status DC Polyethylene Glycol (miraLAX PACKET) 17 gm QODAY PO Last administered on 02/23/20at 09:27; Start 02/23/20 at 09:00 Amiodarone HCl (Cordarone) 100 mg DAILY PO Last administered on 02/23/20at 09:31; Start 02/21/20 at 13:00 Non-Formulary Medication (Arformoterol Tartrate (Brovana)) 15 mcg BID IH ; Start 02/21/20 at 21:00; Status UNV Calcium/Vitamin D (Oscal D 500mg/ 200uts) 1 tab BIDWMEALS PO Last administered on 02/23/20at 17:43; Start 02/21/20 at 11:00 Guaifenesin (MUCINEX ER with DM) 1 tab BID PO Last administered on 02/23/20at 20:51; Start 02/21/20 at 11:00 Non-Formulary Medication (Imatinib Mesylate (Gleevec)) 400 mg DAILYAC PO Last administered on 02/24/20 06:11; Start 02/21/20 at 13:00 Potassium Chloride (Klor-Con) 10 meq DAILYWBKFT PO Last administered on 02/23/20 09:26; Start 02/21/20 at 11:00 Albuterol Sulfate (Ventolin Hfa) 1 puff PRN Q6HRS PRN INH WHEEZES; Start 02/21/20 at 12:00; Stop 02/22/20 at 16:02; Status DC Prednisone (Prednisone) 60 mg DAILY PO Last administered on 02/23/20 09:25; Start 02/21/20 at 10:30; Stop 02/23/20 at 11:03; Status DC Ceftriaxone Sodium (Rocephin) 1 gm Q24H IVP Last administered on 02/21/20 11:26; Start 02/21/20 at 11:00; Stop 02/22/20 at 08:36; Status DC Azithromycin (Zithromax) 250 mg DAILY PO Last administered on 02/21/20 11:25; Start 02/21/20 at 11:00; Stop 02/21/20 at 12:43; Status DC Albuterol/ Ipratropium (Combivent Respimat 20-100 Mcg) 1 puff RTQID INH Last administered on 02/22/20at 07:57; Start 02/21/20 at 12:30; Stop 02/22/20 at 16:03; Status DC Doxycycline Hyclate (Vibra-Tab) 100 mg BID PO Last administered on 02/23/20 20:51; Start 02/21/20 at 21:00 Info (Anti-Coagulation Monitoring By Pharmacy) 1 each PRN DAILY PRN MC SEE COMMENTS Last administered on 02/21/20at 16:07; Start 02/21/20 at 16:15 Piperacillin Sod/ Tazobactam Sod (Zosyn Per Pharmacy) 1 each PRN DAILY PRN MC SEE COMMENTS; Start 02/22/20 at 08:45; Stop 02/23/20 at 17:10; Status DC Piperacillin Sod/ Tazobactam Sod 3.375 gm/Sodium Chloride 50 ml @ 100 mls/hr Q6HRS IV Last administered on 02/23/20at 05:29; Start 02/22/20 at 10:00; Stop 02/23/20 at 11:45; Status DC Albuterol/ Ipratropium (Duoneb) 3 ml RTQID NEB Last administered on 02/24/20at 11:27; Start 02/22/20 at 16:00 Budesonide (Pulmicort) 0.5 mg RTBID NEB Last administered on 02/24/20at 07:38; Start 02/22/20 at 20:00 Albuterol/ Ipratropium (Duoneb) 3 ml STK-MED ONCE .ROUTE ; Start 02/22/20 at 13:12; Stop 02/22/20 at 13:12; Status DC Albuterol Sulfate (Ventolin Neb Soln) 2.5 mg PRN Q6HRS PRN NEB WHEEZING Last administered on 02/24/20at 00:14; Start 02/22/20 at 16:15 Methylprednisolone Sodium Succinate (SOLU-Medrol 125MG VIAL) 60 mg Q8HRS IV Last administered on 02/24/20at 06:11; Start 02/23/20 at 14:00 Ceftriaxone Sodium (Rocephin) 2 gm Q24H IVP Last administered on 02/24/20at 12:00; Start 02/23/20 at 12:00 Lisinopril (Prinivil) 10 mg 1X ONCE PO Last administered on 02/23/20at 19:39; Start 02/23/20 at 19:30; Stop 02/23/20 at 19:31; Status DC Lisinopril (Prinivil) 10 mg DAILY PO ; Start 02/24/20 at 09:00 Active Scripts Active Ventolin Hfa Inhaler (Albuterol Sulfate) 18 Gm Hfa.aer.ad 18 Gm IH QID Reported Gleevec (Imatinib Mesylate) 400 Mg Tablet 400 Mg PO DAILYAC Advil (Ibuprofen) 200 Mg Tablet 200 Mg PO PRN PRN Budesonide 0.5 Mg/2 Ml Ampul.neb 1 Vial NEB BID Duoneb 0.5-3(2.5) Mg/3 Ml (Albuterol/Ipratropium) 3 Ml Ampul.neb 3 Ml NEB QID Miralax (Polyethylene Glycol 3350) 17 Gm Powd.pack 1 Packet PO QODAY 2 Days dissolve in water Mucus Relief ER (Guaifenesin) 1,200 Mg Tab.er.12h 1,200 Mg PO DAILY Alendronate Sodium 70 Mg Tablet 1 Tab PO WEEKLY Eliquis (Apixaban) 5 Mg Tablet 5 Mg PO BID Restart tomorrow 01/12/2020 [Vitamin D2] 50,000 Units PO WEEKLY Furosemide 20 Mg Tablet 1 Tab PO DAILY Klor-Con 10 (Potassium Chloride) 10 Meq Tablet.er 1 Tab PO DAILY 30 Days Diltiazem 24Hr Cd (Diltiazem HCl) 240 Mg Cap.er.24h 1 Cap PO DAILY 30 Days Amiodarone Hcl 100 Mg Tablet 1 Tab PO DAILY 30 Days Calcium 600 + Vit D Caplet (Calcium Carbonate/Vitamin D3) 1 Each Tablet 1 Tab PO BID 30 Days Brovana (Arformoterol Tartrate) 15 Mcg/2 Ml Vial.neb 15 Mcg IH BID Levalbuterol Concentrate (Levalbuterol Hcl) 1.25 Mg/0.5 Ml Vial.neb 1.25 Mg IH QID Vitals/I & O Vital Sign - Last 24 Hours 02/23/20 02/23/20 02/23/20 02/23/20 15:00 15:06 19:00 19:39 Temp 98.6 98.0 98.6 98.0 Pulse 67 103 103 Resp 18 21 B/P (MAP) 128/62 (84) 148/110 (123) 141/108 Pulse Ox 98 93 92 O2 Delivery Room Air Nasal Cannula Nasal Cannula O2 Flow Rate 3.0 3.0 02/23/20 02/23/20 02/23/20 02/23/20 20:00 20:14 20:15 23:00 Temp 98.4 98.4 Pulse 94 Resp 24 B/P (MAP) 155/62 (93) Pulse Ox 97 97 94 O2 Delivery Nasal Cannula Nasal Cannula Nasal Cannula Nasal Cannula O2 Flow Rate 2.0 3.0 3.0 3.0 02/24/20 02/24/20 02/24/20 02/24/20 00:13 03:00 07:15 07:25 Temp 97.6 97.4 97.6 97.4 Pulse 98 94 Resp 24 22 B/P (MAP) 122/51 (74) 160/74 (102) Pulse Ox 93 83 O2 Delivery Nasal Cannula Room Air Room Air Nasal Cannula O2 Flow Rate 3.0 2.0 2.0 02/24/20 02/24/20 02/24/20 02/24/20 07:38 08:39 08:39 08:40 Pulse 94 94 94 B/P (MAP) 160/74 160/74 160/74 Pulse Ox 88 O2 Delivery Nasal Cannula O2 Flow Rate 2.0 02/24/20 02/24/20 02/24/20 02/24/20 08:40 10:55 11:28 11:30 Temp 97.7 97.7 Pulse 94 Resp 20 B/P (MAP) 114/36 (62) Pulse Ox 97 100 98 O2 Delivery BiPAP/CPAP BiPAP/CPAP BiPAP/CPAP Bi-pap O2 Flow Rate 2.5 Intake and Output 02/23/20 02/23/20 02/24/20 15:00 23:00 07:00 Intake Total 650 ml Output Total 0 ml 0 ml Balance 0 ml 650 ml Nutrition Consultation Dietary Evaluation: Recommendations by RD: Dietary education by RD, Increase Calorie Intake, Protein supplementation Comments: cardiac diet, added ensure tid Expected Outcomes/Goals: to meet >75% est nutr needs Interpretation of weight loss: >7.5% in 3 months Malnutrition Findings: Muscle Mass (Severe): Severe Depletion Weight Status: Underweight Justicifation of Admission Dx: Justifications for Admission: Justification of Admission Dx: Yes ANDREW LEE MD Feb 24, 2020 13:33
[2020-02-24] MEDS: ANTI-COAG MONITOR BY PHARMACY. MC PRN (15:13)
[2020-02-24] MEDS ORDERED: LISINOPRIL 10 MG TABLET PO ONE (20:15)
[2020-02-25 03:15] VITALS: BP 118/52
--- NOTE | 2020-02-25 05:42 | PDOC ---
PULMONARY PROGRESS NOTES DATE: 02/25/20 TIME: 05:40 Subjective used bipap till 3:30 am, now on 02 2lpm, sob better, has cough Vitals Vital Signs Date Time Temp Pulse Resp B/P (MAP) Pulse Ox O2 Delivery O2 Flow Rate FiO2 02/25/20 03:25 96 BiPAP/CPAP 02/25/20 03:15 98.0 101 22 118/52 (74) 2.0 98.0 ROS: No Nausea, No Chest Pain General: Alert, Mild Distress HEENT: Other (nc at perrl ) Lungs: Other (decreased bs) Cardiovascular: S1, S2 Abdomen: Soft, Non-tender Neuro Exam: Alert Extremities: No Edema Skin: Warm Labs Laboratory Tests Test 02/23/20 07:25 02/24/20 04:50 02/24/20 08:50 02/24/20 13:07 White Blood Count 6.2 x10^3/uL (4.0-11.0) 5.0 x10^3/uL (4.0-11.0) Red Blood Count 2.93 x10^6/uL (3.50-5.40) 3.02 x10^6/uL (3.50-5.40) Hemoglobin 8.9 g/dL (12.0-15.5) 9.7 g/dL (12.0-15.5) Hematocrit 27.0 % (36.0-47.0) 27.9 % (36.0-47.0) Mean Corpuscular Volume 92 fL (79-100) 92 fL (79-100) Mean Corpuscular Hemoglobin 30 pg (25-35) 32 pg (25-35) Mean Corpuscular Hemoglobin Concent 33 g/dL (31-37) 35 g/dL (31-37) Red Cell Distribution Width 19.0 % (11.5-14.5) 18.4 % (11.5-14.5) Platelet Count 88 x10^3/uL (140-400) 72 x10^3/uL (140-400) Neutrophils (%) (Auto) 89 % (31-73) 96 % (31-73) Lymphocytes (%) (Auto) 3 % (24-48) 1 % (24-48) Monocytes (%) (Auto) 8 % (0-9) 3 % (0-9) Eosinophils (%) (Auto) 0 % (0-3) 0 % (0-3) Basophils (%) (Auto) 0 % (0-3) 0 % (0-3) Neutrophils # (Auto) 5.5 x10^3/uL (1.8-7.7) 4.8 x10^3/uL (1.8-7.7) Lymphocytes # (Auto) 0.2 x10^3/uL (1.0-4.8) 0.0 x10^3/uL (1.0-4.8) Monocytes # (Auto) 0.5 x10^3/uL (0.0-1.1) 0.1 x10^3/uL (0.0-1.1) Eosinophils # (Auto) 0.0 x10^3/uL (0.0-0.7) 0.0 x10^3/uL (0.0-0.7) Basophils # (Auto) 0.0 x10^3/uL (0.0-0.2) 0.0 x10^3/uL (0.0-0.2) Sodium Level 140 mmol/L (136-145) Potassium Level 3.8 mmol/L (3.5-5.1) Chloride Level 99 mmol/L (98-107) Carbon Dioxide Level 37 mmol/L (21-32) Anion Gap 4 (6-14) Blood Urea Nitrogen 19 mg/dL (7-20) Creatinine 0.6 mg/dL (0.6-1.0) Estimated GFR (Cockcroft-Gault) 99.4 Glucose Level 162 mg/dL (70-99) Calcium Level 8.2 mg/dL (8.5-10.1) Troponin I Quantitative 0.050 ng/mL (0.000-0.055) O2 Saturation 96 % (92-99) 97 % (92-99) Arterial Blood pH 7.32 (7.35-7.45) 7.40 (7.35-7.45) Arterial Blood pCO2 at Patient Temp 70 mmHg (35-46) 54 mmHg (35-46) Arterial Blood pO2 at Patient Temp 87 mmHg (65-108) 91 mmHg (65-108) Arterial Blood HCO3 35 mmol/L (21-28) 33 mmol/L (21-28) Arterial Blood Base Excess 8 mmol/L (-3-3) 7 mmol/L (-3-3) FiO2 30 30 Laboratory Tests Test 02/24/20 08:50 02/24/20 13:07 O2 Saturation 96 % (92-99) 97 % (92-99) Arterial Blood pH 7.32 (7.35-7.45) 7.40 (7.35-7.45) Arterial Blood pCO2 at Patient Temp 70 mmHg (35-46) 54 mmHg (35-46) Arterial Blood pO2 at Patient Temp 87 mmHg (65-108) 91 mmHg (65-108) Arterial Blood HCO3 35 mmol/L (21-28) 33 mmol/L (21-28) Arterial Blood Base Excess 8 mmol/L (-3-3) 7 mmol/L (-3-3) FiO2 30 30 Medications Active Scripts Medications Dose Route/Sig Max Daily Dose Days Date Category Dose Instructions Gleevec (Imatinib Mesylate) 400 Mg Tablet 400 Mg PO DAILYAC 02/21/20 Reported Advil (Ibuprofen) 200 Mg Tablet 200 Mg PO PRN PRN 01/11/20 Reported Budesonide 0.5 Mg/2 Ml Ampul.neb 1 Vial NEB BID 01/11/20 Reported Duoneb 0.5-3(2.5) Mg/3 Ml (Albuterol/Ipratropium) 3 Ml Ampul.neb 3 Ml NEB QID 01/11/20 Reported Miralax (Polyethylene Glycol 3350) 17 Gm Powd.pack 1 Packet PO QODAY 2 01/11/20 Reported dissolve in water Mucus Relief ER (Guaifenesin) 1,200 Mg Tab.er.12h 1,200 Mg PO DAILY 01/11/20 Reported Alendronate Sodium 70 Mg Tablet 1 Tab PO WEEKLY 01/11/20 Reported Eliquis (Apixaban) 5 Mg Tablet 5 Mg PO BID 01/11/20 Reported Restart tomorrow 01/12/2020 [Vitamin D2] 50,000 Units PO WEEKLY 01/11/20 Reported Furosemide 20 Mg Tablet 1 Tab PO DAILY 01/11/20 Reported Klor-Con 10 (Potassium Chloride) 10 Meq Tablet.er 1 Tab PO DAILY 30 01/11/20 Reported Diltiazem 24Hr Cd (Diltiazem HCl) 240 Mg Cap.er.24h 1 Cap PO DAILY 30 01/11/20 Reported Amiodarone Hcl 100 Mg Tablet 1 Tab PO DAILY 30 01/11/20 Reported Calcium 600 + Vit D Caplet (Calcium Carbonate/Vitamin D3) 1 Each Tablet 1 Tab PO BID 30 01/11/20 Reported Ventolin Hfa Inhaler (Albuterol Sulfate) 18 Gm Hfa.aer.ad 18 Gm IH QID 10/13/13 Rx Brovana (Arformoterol Tartrate) 15 Mcg/2 Ml Vial.neb 15 Mcg IH BID 10/11/13 Reported Levalbuterol Concentrate (Levalbuterol Hcl) 1.25 Mg/0.5 Ml Vial.neb 1.25 Mg IH QID 06/24/13 Reported Comments CXR: IMPRESSION: Small bilateral pleural effusions, with adjacent airspace disease likely atelectasis. Impression . IMPRESSION: 1. Dyspnea with acute on chronic hypercapnic .(secondary to acute exacerbation of chronic obstructive pulmonary disease. on home O2 at 2 litres. ) 2. Acute tracheobronchitis. 3. The patient with history of lung cancer, was not a surgical candidate, treated with radiation about 5 years ago. 4. History of leukemia, details are not available. Plan . 1. bipap prn, 02 titration to keep sat 90%, avoid hyperoxia 2. Continue with nebulizers. 3. Continue with empiric antibiotics. 4. Eliquis per PCP. 5. change solumedrol to bid Discussed with RN. RAYRAY BOND MD Feb 25, 2020 05:42
[2020-02-25 07:00] VITALS: BP 134/64
[2020-02-25] MEDS: IPRATRPIUM/ALBUTEROL 0.5/2.5MG 3 ML NEBU. NEB SCH ×4 (07:47→20:09)
[2020-02-25] MEDS: BUDESONIDE 0.5 MG/2 ML NEBU. NEB SCH ×2 (07:47→20:09)
[2020-02-25] MEDS: POTASSIUM CHLORIDE 10 MEQ TABLET.ER. PO SCH (08:00)
[2020-02-25] MEDS: methylPREDNISolone SOD SUCC PF 125 MG/2 ML VIAL. IV SCH ×2 (08:36→20:49)
[2020-02-25] MEDS: DOXYCYCLINE HYCLATE 100 MG TABLET PO SCH ×2 (08:38→20:49)
[2020-02-25] MEDS: AMIODARONE HCL 200 MG TABLET. PO SCH (08:38)
[2020-02-25] MEDS: CALCIUM CARB/VIT D3 500/200 TABLET. PO SCH ×2 (08:38→18:04)
[2020-02-25] MEDS: LISINOPRIL 10 MG TABLET PO SCH (08:38)
[2020-02-25] MEDS: APIXABAN 5 MG TABLET. PO SCH ×2 (08:39→20:49)
[2020-02-25] MEDS: GLEEVEC PO SCH (08:41)
[2020-02-25] MEDS: guaiFENesin DM 600/30MG 1 TAB TAB.ER.12H PO SCH ×2 (09:00→21:00)
[2020-02-25] MEDS: FUROSEMIDE 20 MG TABLET PO SCH (09:00)
[2020-02-25] MEDS: POLYETHYLENE GLYCOL 3350 17 GM PACKET. PO SCH (09:00)
--- NOTE | 2020-02-25 10:10 | PDOC ---
Infectious Disease Note Subjective Subjective Feeling better this morning, less work of breathing Currently on 3L O2 ROS ROS Denies fevers/chills//N/V/D/CP Vital Sign Vital Signs Vital Signs Date Time Temp Pulse Resp B/P (MAP) Pulse Ox O2 Delivery O2 Flow Rate FiO2 02/25/20 08:38 85 02/25/20 07:48 95 Nasal Cannula 2.5 02/25/20 07:00 98.4 22 134/64 (87) 98.4 Physical Exam PHYSICAL EXAM GENERAL: Propped up in bed, alert, in NAD HEENT: Oroharynx dry NECK: Supple. LUNGS: Decreased breath sounds, nonlabored HEART: S1, S2. ABDOMEN: Soft, nontender, nondistended. EXTREMITIES: No edema, no cyanosis. NEUROLOGIC: Alert and oriented x 3, grossly nonfocal. PSYCHIATRIC: Cooperative, appropriate mood and affect. DERMATOLOGIC: Warm and dry. No generalized rash. PIV looks ok Labs Lab Laboratory Tests Test 02/24/20 13:07 O2 Saturation 97 % (92-99) Arterial Blood pH 7.40 (7.35-7.45) Arterial Blood pCO2 at Patient Temp 54 mmHg (35-46) Arterial Blood pO2 at Patient Temp 91 mmHg (65-108) Arterial Blood HCO3 33 mmol/L (21-28) Arterial Blood Base Excess 7 mmol/L (-3-3) FiO2 30 Micro Microbiology 02/20/20 Blood Culture - Preliminary, Resulted NO GROWTH AFTER 4 DAYS Objective Assessment COPD exacerbation Pancytopenia improving on steroids History of CML Chronic hypoxic respiratory failure on 2 L O2 at home History of lung cancer status post radiation Coronary artery disease Protein calorie malnutrition Plan Plan of Care cont ceftriaxone/ doxycycline on steroids Follow up cultures and lab. Continue supportive care. Discussed with nursing staff Attending Co-Sign Attending Co-Sign Attending Co-Sign The patient was seen and examined at the bedside. The chart was reviewed. The case was discussed. Agree with the plan of care. LATASHA MARTÍNEZ APRN Feb 25, 2020 10:10 DEN WHITEHEAD MD Feb 25, 2020 13:11
--- NOTE | 2020-02-25 10:49 | PDOC ---
[employer] PROGRESS NOTE Date of Service DOS: DATE: 02/25/20 TIME: 10:32 Chief Complaint Chief Complaint Shortness of breath History of Present Illness History of Present Illness Patient is off BiPAP, currently breathing on 3L.States she is breathing better than yesterday, but currently not at her baseline O2 requirement of 2L. Vitals/I&O Vitals/I&O: Vital Signs Date Time Temp Pulse Resp B/P (MAP) Pulse Ox O2 Delivery O2 Flow Rate FiO2 02/25/20 08:38 85 02/25/20 07:48 95 Nasal Cannula 2.5 02/25/20 07:00 98.4 22 134/64 (87) 98.4 I & O 02/24/20 02/24/20 02/25/20 15:00 23:00 07:00 Intake Total 0 ml 50 ml Output Total 100 ml Balance 0 ml -50 ml Physical Exam Physical Exam: GENERAL: Propped up in bed, alert, in NAD HEENT: Oroharynx dry NECK: Supple. LUNGS: Decreased breath sounds, nonlabored HEART: S1, S2. ABDOMEN: Soft, nontender, nondistended. EXTREMITIES: No edema, no cyanosis. NEUROLOGIC: Alert and oriented x 3, grossly nonfocal. PSYCHIATRIC: Cooperative, appropriate mood and affect. DERMATOLOGIC: Warm and dry. No generalized rash. PIV looks ok General: Alert, Oriented X3, Cooperative, No acute distress Heart: Regular rate, No murmurs Lungs: Other (decreased bs) Abdomen: Normal bowel sounds, Soft Extremities: No clubbing Skin: No rashes Labs Labs: Laboratory Tests Test 02/24/20 13:07 O2 Saturation 97 % (92-99) Arterial Blood pH 7.40 (7.35-7.45) Arterial Blood pCO2 at Patient Temp 54 mmHg (35-46) Arterial Blood pO2 at Patient Temp 91 mmHg (65-108) Arterial Blood HCO3 33 mmol/L (21-28) Arterial Blood Base Excess 7 mmol/L (-3-3) FiO2 30 Assessment and Plan Assessmemt and Plan Problems Medical Problems: (1) COPD exacerbation Status: Acute Continue current antibiotic treatment, steroids, and supportive care (2) Dyspnea Status: Acute Breathing treatments, supportive care Comment Review of Relevant I have reviewed the following items la (where applicable) has been applied. Medications: Current Medications Medications (Trade) Dose Ordered Sig/Torsten Route PRN Reason Start Time Stop Time Status Last Admin Dose Admin Lisinopril (Prinivil) 10 mg 1X ONCE PO 02/24/20 20:15 02/24/20 20:16 DC 02/24/20 21:38 Lorazepam (Ativan Inj) 0.5 mg PRN Q4HRS PRN IVP ANXIETY / AGITATION 02/24/20 21:00 02/24/20 21:37 Methylprednisolone Sodium Succinate (SOLU-Medrol 125MG VIAL) 60 mg Q12HR IV 02/25/20 09:00 02/25/20 08:36 Justicifation of Admission Dx: Justifications for Admission: Justification of Admission Dx: Yes CANDY MILLARD MD Feb 25, 2020 10:49
[2020-02-25 10:56] VITALS: BP 165/63
[2020-02-25] MEDS: cefTRIAXone IV Push 2 GM VIAL. IVP SCH (13:05)
[2020-02-25 15:00] VITALS: BP 108/41
[2020-02-25 19:15] VITALS: BP 148/61
[2020-02-25 23:32] VITALS: BP 139/62
[2020-02-26 03:20] VITALS: BP 142/67
--- NOTE | 2020-02-26 04:36 | NUR ---
Pt did have nurse take bipap off at 0120 then wanted bipap placed back on at 0310. Will continue to monitor.
[2020-02-26 06:03] LABS: BASO % 0 % (0-3); EOS % 0 % (0-3); HEMOGLOBIN 7.9 g/dL (12.0-15.5); LYMPH % 1 % (24-48); MEAN CORPUSCULAR HEMOGLOBIN 31 pg (25-35); MEAN CORPUSCULAR HGB CONC 33 g/dL (31-37); MEAN CORPUSCULAR VOLUME 93 fL (79-100); MONO # 0.1 x10^3/uL (0.0-1.1); MONO % 3 % (0-9); NEUT # 4.5 x10^3/uL (1.8-7.7); NEUT % 97 % (31-73); PLATELET COUNT 55 x10^3/uL (140-400); RED BLOOD COUNT 2.59 x10^6/uL (3.50-5.40); RED CELL DISTRIBUTION WIDTH 18.8 % (11.5-14.5); WHITE BLOOD COUNT 4.6 x10^3/uL (4.0-11.0)
[2020-02-26 06:14] LABS: CALCIUM 8.9 mg/dL (8.5-10.1); CREATININE 0.5 mg/dL (0.6-1.0); GFR 122.7
[2020-02-26 07:00] VITALS: BP 140/62
[2020-02-26] MEDS: BUDESONIDE 0.5 MG/2 ML NEBU. NEB SCH ×2 (07:40→19:57)
[2020-02-26] MEDS: IPRATRPIUM/ALBUTEROL 0.5/2.5MG 3 ML NEBU. NEB SCH ×5 (07:40→23:47)
[2020-02-26] MEDS: AMIODARONE HCL 200 MG TABLET. PO SCH (08:32)
[2020-02-26] MEDS: APIXABAN 5 MG TABLET. PO SCH ×2 (08:32→21:09)
[2020-02-26] MEDS: CALCIUM CARB/VIT D3 500/200 TABLET. PO SCH ×2 (08:32→17:26)
[2020-02-26] MEDS: POTASSIUM CHLORIDE 10 MEQ TABLET.ER. PO SCH (08:33)
[2020-02-26] MEDS: FUROSEMIDE 20 MG TABLET PO SCH (08:33)
[2020-02-26] MEDS: methylPREDNISolone SOD SUCC PF 125 MG/2 ML VIAL. IV SCH ×2 (08:33→21:12)
[2020-02-26] MEDS: DOXYCYCLINE HYCLATE 100 MG TABLET PO SCH ×2 (08:33→21:09)
[2020-02-26] MEDS: guaiFENesin DM 600/30MG 1 TAB TAB.ER.12H PO SCH ×2 (08:34→21:29)
[2020-02-26] MEDS: GLEEVEC PO SCH (08:34)
[2020-02-26] MEDS: LISINOPRIL 10 MG TABLET PO SCH (08:37)
--- NOTE | 2020-02-26 09:20 | PDOC ---
PULMONARY PROGRESS NOTES DATE: 02/26/20 TIME: 09:14 Subjective used bipap part of the night, now on 02 3lpm, has more sob, has cough Vitals Vital Signs Date Time Temp Pulse Resp B/P (MAP) Pulse Ox O2 Delivery O2 Flow Rate FiO2 02/26/20 08:37 90 02/26/20 07:40 97 Nasal Cannula 3.0 02/26/20 07:00 98.3 22 140/62 (88) 98.3 ROS: No Nausea, No Chest Pain General: Alert, Mild Distress HEENT: Other (nc at perrl jvp elevated) Lungs: Wheezing, Crackles, Other (decreased bs) Cardiovascular: S1, S2 Abdomen: Soft, Non-tender Neuro Exam: Alert Extremities: No Edema Skin: Warm Labs Laboratory Tests Test 02/24/20 13:07 02/26/20 05:30 O2 Saturation 97 % (92-99) Arterial Blood pH 7.40 (7.35-7.45) Arterial Blood pCO2 at Patient Temp 54 mmHg (35-46) Arterial Blood pO2 at Patient Temp 91 mmHg (65-108) Arterial Blood HCO3 33 mmol/L (21-28) Arterial Blood Base Excess 7 mmol/L (-3-3) FiO2 30 White Blood Count 4.6 x10^3/uL (4.0-11.0) Red Blood Count 2.59 x10^6/uL (3.50-5.40) Hemoglobin 7.9 g/dL (12.0-15.5) Hematocrit 24.0 % (36.0-47.0) Mean Corpuscular Volume 93 fL (79-100) Mean Corpuscular Hemoglobin 31 pg (25-35) Mean Corpuscular Hemoglobin Concent 33 g/dL (31-37) Red Cell Distribution Width 18.8 % (11.5-14.5) Platelet Count 55 x10^3/uL (140-400) Neutrophils (%) (Auto) 97 % (31-73) Lymphocytes (%) (Auto) 1 % (24-48) Monocytes (%) (Auto) 3 % (0-9) Eosinophils (%) (Auto) 0 % (0-3) Basophils (%) (Auto) 0 % (0-3) Neutrophils # (Auto) 4.5 x10^3/uL (1.8-7.7) Lymphocytes # (Auto) 0.0 x10^3/uL (1.0-4.8) Monocytes # (Auto) 0.1 x10^3/uL (0.0-1.1) Eosinophils # (Auto) 0.0 x10^3/uL (0.0-0.7) Basophils # (Auto) 0.0 x10^3/uL (0.0-0.2) Sodium Level 145 mmol/L (136-145) Potassium Level 4.0 mmol/L (3.5-5.1) Chloride Level 104 mmol/L (98-107) Carbon Dioxide Level 41 mmol/L (21-32) Anion Gap 0 (6-14) Blood Urea Nitrogen 30 mg/dL (7-20) Creatinine 0.5 mg/dL (0.6-1.0) Estimated GFR (Cockcroft-Gault) 122.7 Glucose Level 145 mg/dL (70-99) Calcium Level 8.9 mg/dL (8.5-10.1) Laboratory Tests Test 02/26/20 05:30 White Blood Count 4.6 x10^3/uL (4.0-11.0) Red Blood Count 2.59 x10^6/uL (3.50-5.40) Hemoglobin 7.9 g/dL (12.0-15.5) Hematocrit 24.0 % (36.0-47.0) Mean Corpuscular Volume 93 fL (79-100) Mean Corpuscular Hemoglobin 31 pg (25-35) Mean Corpuscular Hemoglobin Concent 33 g/dL (31-37) Red Cell Distribution Width 18.8 % (11.5-14.5) Platelet Count 55 x10^3/uL (140-400) Neutrophils (%) (Auto) 97 % (31-73) Lymphocytes (%) (Auto) 1 % (24-48) Monocytes (%) (Auto) 3 % (0-9) Eosinophils (%) (Auto) 0 % (0-3) Basophils (%) (Auto) 0 % (0-3) Neutrophils # (Auto) 4.5 x10^3/uL (1.8-7.7) Lymphocytes # (Auto) 0.0 x10^3/uL (1.0-4.8) Monocytes # (Auto) 0.1 x10^3/uL (0.0-1.1) Eosinophils # (Auto) 0.0 x10^3/uL (0.0-0.7) Basophils # (Auto) 0.0 x10^3/uL (0.0-0.2) Sodium Level 145 mmol/L (136-145) Potassium Level 4.0 mmol/L (3.5-5.1) Chloride Level 104 mmol/L (98-107) Carbon Dioxide Level 41 mmol/L (21-32) Anion Gap 0 (6-14) Blood Urea Nitrogen 30 mg/dL (7-20) Creatinine 0.5 mg/dL (0.6-1.0) Estimated GFR (Cockcroft-Gault) 122.7 Glucose Level 145 mg/dL (70-99) Calcium Level 8.9 mg/dL (8.5-10.1) Medications Active Scripts Medications Dose Route/Sig Max Daily Dose Days Date Category Dose Instructions Gleevec (Imatinib Mesylate) 400 Mg Tablet 400 Mg PO DAILYAC 02/21/20 Reported Advil (Ibuprofen) 200 Mg Tablet 200 Mg PO PRN PRN 01/11/20 Reported Budesonide 0.5 Mg/2 Ml Ampul.neb 1 Vial NEB BID 01/11/20 Reported Duoneb 0.5-3(2.5) Mg/3 Ml (Albuterol/Ipratropium) 3 Ml Ampul.neb 3 Ml NEB QID 01/11/20 Reported Miralax (Polyethylene Glycol 3350) 17 Gm Powd.pack 1 Packet PO QODAY 2 01/11/20 Reported dissolve in water Mucus Relief ER (Guaifenesin) 1,200 Mg Tab.er.12h 1,200 Mg PO DAILY 01/11/20 Reported Alendronate Sodium 70 Mg Tablet 1 Tab PO WEEKLY 01/11/20 Reported Eliquis (Apixaban) 5 Mg Tablet 5 Mg PO BID 01/11/20 Reported Restart tomorrow 01/12/2020 [Vitamin D2] 50,000 Units PO WEEKLY 01/11/20 Reported Furosemide 20 Mg Tablet 1 Tab PO DAILY 01/11/20 Reported Klor-Con 10 (Potassium Chloride) 10 Meq Tablet.er 1 Tab PO DAILY 30 01/11/20 Reported Diltiazem 24Hr Cd (Diltiazem HCl) 240 Mg Cap.er.24h 1 Cap PO DAILY 30 01/11/20 Reported Amiodarone Hcl 100 Mg Tablet 1 Tab PO DAILY 30 01/11/20 Reported Calcium 600 + Vit D Caplet (Calcium Carbonate/Vitamin D3) 1 Each Tablet 1 Tab PO BID 30 01/11/20 Reported Ventolin Hfa Inhaler (Albuterol Sulfate) 18 Gm Hfa.aer.ad 18 Gm IH QID 10/13/13 Rx Brovana (Arformoterol Tartrate) 15 Mcg/2 Ml Vial.neb 15 Mcg IH BID 10/11/13 Reported Levalbuterol Concentrate (Levalbuterol Hcl) 1.25 Mg/0.5 Ml Vial.neb 1.25 Mg IH QID 06/24/13 Reported Comments CXR: IMPRESSION: Small bilateral pleural effusions, with adjacent airspace disease likely atelectasis. Impression . IMPRESSION: 1. Dyspnea with acute on chronic hypercapnic .(secondary to acute exacerbation of chronic obstructive pulmonary disease. on home O2 at 2 litres. ) 2. Acute tracheobronchitis. 3. The patient with history of lung cancer, was not a surgical candidate, treated with radiation about 5 years ago. 4. History of leukemia, details are not available. Plan . 1. has more sob, elevated jvp, crackles wheezing, will increase BD to q 4hrs, lasix 20 mg iv now, bipap prn during day and cont at night, 02 titration to keep sat 90%, avoid hyperoxia 2. Continue with nebulizers. 3. Continue with empiric antibiotics. 4. Eliquis per PCP. 5. cont solumedrol bid no dose change Discussed with RN, pt. DNR RAYRAY ARIAS MD Feb 26, 2020 09:20
[2020-02-26] MEDS ORDERED: FUROSEMIDE 20 MG/2 ML VIAL. IVP ONE (09:30)
--- NOTE | 2020-02-26 09:51 | PDOC ---
Infectious Disease Note Subjective Subjective c/o increase work of breathing and heartburn Currently on 3L O2 No fevers/chills ROS ROS as mentioned above Vital Sign Vital Signs Vital Signs Date Time Temp Pulse Resp B/P (MAP) Pulse Ox O2 Delivery O2 Flow Rate FiO2 02/26/20 08:37 90 02/26/20 07:40 97 Nasal Cannula 3.0 02/26/20 07:00 98.3 22 140/62 (88) 98.3 Physical Exam PHYSICAL EXAM GENERAL: Propped up in bed, alert, purse-breathing HEENT: Oroharynx dry NECK: Supple. LUNGS: Decreased breath sounds, soft wheezes, no accessory muscle use HEART: S1, S2. ABDOMEN: Soft, nontender, nondistended. EXTREMITIES: No edema, no cyanosis. NEUROLOGIC: Alert and oriented x 3, grossly nonfocal. PSYCHIATRIC: Cooperative, appropriate mood and affect. DERMATOLOGIC: Warm and dry. No generalized rash. PIV looks ok Labs Lab Laboratory Tests Test 02/26/20 05:30 White Blood Count 4.6 x10^3/uL (4.0-11.0) Red Blood Count 2.59 x10^6/uL (3.50-5.40) Hemoglobin 7.9 g/dL (12.0-15.5) Hematocrit 24.0 % (36.0-47.0) Mean Corpuscular Volume 93 fL (79-100) Mean Corpuscular Hemoglobin 31 pg (25-35) Mean Corpuscular Hemoglobin Concent 33 g/dL (31-37) Red Cell Distribution Width 18.8 % (11.5-14.5) Platelet Count 55 x10^3/uL (140-400) Neutrophils (%) (Auto) 97 % (31-73) Lymphocytes (%) (Auto) 1 % (24-48) Monocytes (%) (Auto) 3 % (0-9) Eosinophils (%) (Auto) 0 % (0-3) Basophils (%) (Auto) 0 % (0-3) Neutrophils # (Auto) 4.5 x10^3/uL (1.8-7.7) Lymphocytes # (Auto) 0.0 x10^3/uL (1.0-4.8) Monocytes # (Auto) 0.1 x10^3/uL (0.0-1.1) Eosinophils # (Auto) 0.0 x10^3/uL (0.0-0.7) Basophils # (Auto) 0.0 x10^3/uL (0.0-0.2) Sodium Level 145 mmol/L (136-145) Potassium Level 4.0 mmol/L (3.5-5.1) Chloride Level 104 mmol/L (98-107) Carbon Dioxide Level 41 mmol/L (21-32) Anion Gap 0 (6-14) Blood Urea Nitrogen 30 mg/dL (7-20) Creatinine 0.5 mg/dL (0.6-1.0) Estimated GFR (Cockcroft-Gault) 122.7 Glucose Level 145 mg/dL (70-99) Calcium Level 8.9 mg/dL (8.5-10.1) Micro Microbiology 02/20/20 Blood Culture - Preliminary, Resulted NO GROWTH AFTER 5 DAYS Objective Assessment COPD exacerbation Pancytopenia/ WBC improved on steroids History of CML Chronic hypoxic respiratory failure on 2 L O2 at home History of lung cancer status post radiation Coronary artery disease Protein calorie malnutrition h/o A-fib, on amiodarone Plan Plan of Care cont ceftriaxone/ doxycycline on steroids Monitor labs/temp Continue supportive care. Pulmonary following D/w nursing Attending Co-Sign Attending Co-Sign The patient was seen and examined at the bedside. The chart was reviewed. The case was discussed. Agree with the plan of care. LATASHA MARTÍNEZ APRN Feb 26, 2020 09:51 DEN WHITEHEAD MD Feb 26, 2020 14:45
[2020-02-26] MEDS: cefTRIAXone IV Push 2 GM VIAL. IVP SCH (10:53)
[2020-02-26 11:17] VITALS: BP 161/41
--- NOTE | 2020-02-26 12:37 | PDOC ---
[employer] PROGRESS NOTE Date of Service DOS: DATE: 02/26/20 TIME: 12:30 Chief Complaint Chief Complaint COPD acute exacerbation Severe protein-caloric malnutrition CML Weakness Thrombocytopenia History of Present Illness History of Present Illness 02/26/2020 Patient seen and examined She is still requiring BiPAP at night and 3L O2 NC during the day, her baseline is 2L at home She is resting with NAD Discussed with RN Chart reviewed Vitals/I&O Vitals/I&O: Vital Signs Date Time Temp Pulse Resp B/P (MAP) Pulse Ox O2 Delivery O2 Flow Rate FiO2 02/26/20 11:19 Nasal Cannula 3.0 02/26/20 11:17 98.7 104 26 161/41 (81) 97 98.7 I & O 02/25/20 02/25/20 02/26/20 15:00 23:00 07:00 Intake Total 350 ml 350 ml 100 ml Output Total 500 ml 400 ml Balance 350 ml -150 ml -300 ml Physical Exam Physical Exam: GENERAL: Propped up in bed, alert, purse-breathing HEENT: Oroharynx dry NECK: Supple. LUNGS: Decreased breath sounds, soft wheezes, no accessory muscle use HEART: S1, S2. ABDOMEN: Soft, nontender, nondistended. EXTREMITIES: No edema, no cyanosis. NEUROLOGIC: Alert and oriented x 3, grossly nonfocal. PSYCHIATRIC: Cooperative, appropriate mood and affect. DERMATOLOGIC: Warm and dry. No generalized rash. PIV looks ok General: Alert, Oriented X3, Cooperative, No acute distress Heart: Regular rate, No murmurs Lungs: Wheezing, Crackles, Other (decreased bs) Abdomen: Normal bowel sounds, Soft Extremities: No clubbing Skin: No rashes, No breakdown, No significant lesion Labs Labs: Laboratory Tests Test 02/26/20 05:30 White Blood Count 4.6 x10^3/uL (4.0-11.0) Red Blood Count 2.59 x10^6/uL (3.50-5.40) Hemoglobin 7.9 g/dL (12.0-15.5) Hematocrit 24.0 % (36.0-47.0) Mean Corpuscular Volume 93 fL (79-100) Mean Corpuscular Hemoglobin 31 pg (25-35) Mean Corpuscular Hemoglobin Concent 33 g/dL (31-37) Red Cell Distribution Width 18.8 % (11.5-14.5) Platelet Count 55 x10^3/uL (140-400) Neutrophils (%) (Auto) 97 % (31-73) Lymphocytes (%) (Auto) 1 % (24-48) Monocytes (%) (Auto) 3 % (0-9) Eosinophils (%) (Auto) 0 % (0-3) Basophils (%) (Auto) 0 % (0-3) Neutrophils # (Auto) 4.5 x10^3/uL (1.8-7.7) Lymphocytes # (Auto) 0.0 x10^3/uL (1.0-4.8) Monocytes # (Auto) 0.1 x10^3/uL (0.0-1.1) Eosinophils # (Auto) 0.0 x10^3/uL (0.0-0.7) Basophils # (Auto) 0.0 x10^3/uL (0.0-0.2) Sodium Level 145 mmol/L (136-145) Potassium Level 4.0 mmol/L (3.5-5.1) Chloride Level 104 mmol/L (98-107) Carbon Dioxide Level 41 mmol/L (21-32) Anion Gap 0 (6-14) Blood Urea Nitrogen 30 mg/dL (7-20) Creatinine 0.5 mg/dL (0.6-1.0) Estimated GFR (Cockcroft-Gault) 122.7 Glucose Level 145 mg/dL (70-99) Calcium Level 8.9 mg/dL (8.5-10.1) Assessment and Plan Assessmemt and Plan Problems Medical Problems: (1) COPD exacerbation Status: Acute (2) Dyspnea Status: Acute ASSESSMENT COPD acute exacerbation Severe protein-caloric malnutrition CML Weakness Thrombocytopenia PLAN Hoping to discharge tomorrow with home health Continue nebulizers Continue rocephin and doxycycline Continue prednisone PO PT/OT Home meds DVT prophylaxis DNR Subspecialty input appreciated Comment Review of Relevant I have reviewed the following items la (where applicable) has been applied. Medications: Current Medications Medications (Trade) Dose Ordered Sig/Torsten Route PRN Reason Start Time Stop Time Status Last Admin Dose Admin Albuterol/ Ipratropium (Duoneb) 3 ml Q4HRS NEB 02/26/20 12:00 8/16/20 11:18 Furosemide (Lasix) 20 mg 1X ONCE IVP 02/26/20 09:30 02/26/20 09:31 DC 02/26/20 10:53 Justicifation of Admission Dx: Justifications for Admission: Justification of Admission Dx: Yes MANUEL RODRIGUEZ III DO Feb 26, 2020 12:37
[2020-02-26 15:19] VITALS: BP 111/48
[2020-02-26 19:20] VITALS: BP 113/51
[2020-02-26 23:00] VITALS: BP 107/52
[2020-02-27 02:54] VITALS: BP 118/78
[2020-02-27] MEDS: IPRATRPIUM/ALBUTEROL 0.5/2.5MG 3 ML NEBU. NEB SCH ×5 (03:47→19:40)
--- NOTE | 2020-02-27 06:02 | NUR ---
Patient placed on BiPap at 2130 on 02/25 and off BiPap at 0600. 3LNC placed on pt.
[2020-02-27 07:00] VITALS: BP 125/60
[2020-02-27] MEDS: BUDESONIDE 0.5 MG/2 ML NEBU. NEB SCH ×2 (07:37→19:40)
[2020-02-27] MEDS: CALCIUM CARB/VIT D3 500/200 TABLET. PO SCH ×2 (08:43→18:04)
[2020-02-27] MEDS: AMIODARONE HCL 200 MG TABLET. PO SCH (08:43)
[2020-02-27] MEDS: APIXABAN 5 MG TABLET. PO SCH ×2 (08:43→20:49)
[2020-02-27] MEDS: DOXYCYCLINE HYCLATE 100 MG TABLET PO SCH (08:44)
[2020-02-27] MEDS: FUROSEMIDE 20 MG TABLET PO SCH (08:45)
[2020-02-27] MEDS: POTASSIUM CHLORIDE 10 MEQ TABLET.ER. PO SCH (08:45)
[2020-02-27] MEDS: POLYETHYLENE GLYCOL 3350 17 GM PACKET. PO SCH (08:45)
[2020-02-27] MEDS: LISINOPRIL 10 MG TABLET PO SCH (08:45)
[2020-02-27] MEDS: guaiFENesin DM 600/30MG 1 TAB TAB.ER.12H PO SCH ×2 (08:51→20:51)
[2020-02-27] MEDS: methylPREDNISolone SOD SUCC PF 125 MG/2 ML VIAL. IV SCH ×2 (08:53→20:49)
--- NOTE | 2020-02-27 09:36 | PDOC ---
Infectious Disease Note Subjective Subjective Currently comfortable - had Bipap earlier Currently on 3L O2 No fevers/chills No appetite but does not like the fooe Vital Sign Vital Signs Vital Signs Date Time Temp Pulse Resp B/P (MAP) Pulse Ox O2 Delivery O2 Flow Rate FiO2 02/27/20 08:45 102 125/60 02/27/20 07:40 100 Nasal Cannula 3.0 02/27/20 07:00 97.8 24 97.8 Physical Exam PHYSICAL EXAM GENERAL: Propped up in bed, alert, comfortable HEENT: Oroharynx dry NECK: Supple. LUNGS: Decreased breath sounds, no accessory muscle use HEART: S1, S2. ABDOMEN: Soft, nontender, nondistended. EXTREMITIES: No edema, no cyanosis. NEUROLOGIC: Alert and oriented x 3, grossly nonfocal. PSYCHIATRIC: Cooperative, appropriate mood and affect. DERMATOLOGIC: Warm and dry. No generalized rash. PIV looks ok Labs Micro Microbiology 02/20/20 Blood Culture - Final, Complete NO GROWTH AFTER 5 DAYS Objective Assessment COPD exacerbation Pancytopenia/ WBC improved on steroids History of CML Chronic hypoxic respiratory failure on 2 L O2 at home History of lung cancer status post radiation Coronary artery disease Protein calorie malnutrition h/o A-fib, on amiodarone Plan Plan of Care Discont ceftriaxone begin Cefdinir D/c doxycycline 02/20 on steroids Monitor labs/temp Continue supportive care. Pulmonary following D/w nursing LEONARD BERGERON MD Feb 27, 2020 09:36
--- NOTE | 2020-02-27 09:52 | PDOC ---
PULMONARY PROGRESS NOTES DATE: 02/27/20 TIME: 09:50 Subjective used bipaplast night, now on 02 3lpm, weak Vitals Vital Signs Date Time Temp Pulse Resp B/P (MAP) Pulse Ox O2 Delivery O2 Flow Rate FiO2 02/27/20 08:45 102 125/60 02/27/20 07:40 100 Nasal Cannula 3.0 02/27/20 07:00 97.8 24 97.8 ROS: No Nausea, No Chest Pain General: Alert, Mild Distress HEENT: Other (nc at perrl jvp elevated) Lungs: Wheezing (improved) Cardiovascular: S1, S2 Abdomen: Soft, Non-tender Neuro Exam: Alert Extremities: No Edema Skin: Warm Labs Laboratory Tests Test 02/26/20 05:30 White Blood Count 4.6 x10^3/uL (4.0-11.0) Red Blood Count 2.59 x10^6/uL (3.50-5.40) Hemoglobin 7.9 g/dL (12.0-15.5) Hematocrit 24.0 % (36.0-47.0) Mean Corpuscular Volume 93 fL (79-100) Mean Corpuscular Hemoglobin 31 pg (25-35) Mean Corpuscular Hemoglobin Concent 33 g/dL (31-37) Red Cell Distribution Width 18.8 % (11.5-14.5) Platelet Count 55 x10^3/uL (140-400) Neutrophils (%) (Auto) 97 % (31-73) Lymphocytes (%) (Auto) 1 % (24-48) Monocytes (%) (Auto) 3 % (0-9) Eosinophils (%) (Auto) 0 % (0-3) Basophils (%) (Auto) 0 % (0-3) Neutrophils # (Auto) 4.5 x10^3/uL (1.8-7.7) Lymphocytes # (Auto) 0.0 x10^3/uL (1.0-4.8) Monocytes # (Auto) 0.1 x10^3/uL (0.0-1.1) Eosinophils # (Auto) 0.0 x10^3/uL (0.0-0.7) Basophils # (Auto) 0.0 x10^3/uL (0.0-0.2) Sodium Level 145 mmol/L (136-145) Potassium Level 4.0 mmol/L (3.5-5.1) Chloride Level 104 mmol/L (98-107) Carbon Dioxide Level 41 mmol/L (21-32) Anion Gap 0 (6-14) Blood Urea Nitrogen 30 mg/dL (7-20) Creatinine 0.5 mg/dL (0.6-1.0) Estimated GFR (Cockcroft-Gault) 122.7 Glucose Level 145 mg/dL (70-99) Calcium Level 8.9 mg/dL (8.5-10.1) Medications Active Scripts Medications Dose Route/Sig Max Daily Dose Days Date Category Dose Instructions Gleevec (Imatinib Mesylate) 400 Mg Tablet 400 Mg PO DAILYAC 02/21/20 Reported Advil (Ibuprofen) 200 Mg Tablet 200 Mg PO PRN PRN 01/11/20 Reported Budesonide 0.5 Mg/2 Ml Ampul.neb 1 Vial NEB BID 01/11/20 Reported Duoneb 0.5-3(2.5) Mg/3 Ml (Albuterol/Ipratropium) 3 Ml Ampul.neb 3 Ml NEB QID 01/11/20 Reported Miralax (Polyethylene Glycol 3350) 17 Gm Powd.pack 1 Packet PO QODAY 2 01/11/20 Reported dissolve in water Mucus Relief ER (Guaifenesin) 1,200 Mg Tab.er.12h 1,200 Mg PO DAILY 01/11/20 Reported Alendronate Sodium 70 Mg Tablet 1 Tab PO WEEKLY 01/11/20 Reported Eliquis (Apixaban) 5 Mg Tablet 5 Mg PO BID 01/11/20 Reported Restart tomorrow 01/12/2020 [Vitamin D2] 50,000 Units PO WEEKLY 01/11/20 Reported Furosemide 20 Mg Tablet 1 Tab PO DAILY 01/11/20 Reported Klor-Con 10 (Potassium Chloride) 10 Meq Tablet.er 1 Tab PO DAILY 30 01/11/20 Reported Diltiazem 24Hr Cd (Diltiazem HCl) 240 Mg Cap.er.24h 1 Cap PO DAILY 30 01/11/20 Reported Amiodarone Hcl 100 Mg Tablet 1 Tab PO DAILY 30 01/11/20 Reported Calcium 600 + Vit D Caplet (Calcium Carbonate/Vitamin D3) 1 Each Tablet 1 Tab PO BID 30 01/11/20 Reported Ventolin Hfa Inhaler (Albuterol Sulfate) 18 Gm Hfa.aer.ad 18 Gm IH QID 10/13/13 Rx Brovana (Arformoterol Tartrate) 15 Mcg/2 Ml Vial.neb 15 Mcg IH BID 10/11/13 Reported Levalbuterol Concentrate (Levalbuterol Hcl) 1.25 Mg/0.5 Ml Vial.neb 1.25 Mg IH QID 06/24/13 Reported Comments CXR: IMPRESSION: Small bilateral pleural effusions, with adjacent airspace disease likely atelectasis. Impression . IMPRESSION: 1. Dyspnea with acute on chronic hypercapnic .(secondary to acute exacerbation of chronic obstructive pulmonary disease. on home O2 at 2 litres. ) 2. Acute tracheobronchitis. 3. The patient with history of lung cancer, was not a surgical candidate, treated with radiation about 5 years ago. 4. History of leukemia, details are not available. Plan . 1. PRN BIPAP. BD to q 4hrs, lasix prn. .02 titration to keep sat 90%, avoid hyperoxia 2. Continue with nebulizers. 3. Continue with empiric antibiotics. 4. Eliquis per PCP. 5. cont solumedrol 6. consider skill shruti Discussed with RN, pt. DNR YENIFER BARKER MD Feb 27, 2020 09:52
[2020-02-27 10:40] VITALS: BP 114/54
--- NOTE | 2020-02-27 11:27 | PDOC ---
[employer] PROGRESS NOTE Date of Service DOS: DATE: 02/27/20 TIME: 11:15 Chief Complaint Chief Complaint COPD acute exacerbation Severe protein-caloric malnutrition CML Weakness Thrombocytopenia History of Present Illness History of Present Illness 02/27/2020 Patient seen and examined Patient still requires BiPAP at night and 3L O2 NC during the day, her baseline is 2L at home Resting with NAD Discussed with RN Reviewed chart 02/26/2020 Patient seen and examined She is still requiring BiPAP at night and 3L O2 NC during the day, her baseline is 2L at home She is resting with NAD Discussed with RN Chart reviewed Vitals/I&O Vitals/I&O: Vital Signs Date Time Temp Pulse Resp B/P (MAP) Pulse Ox O2 Delivery O2 Flow Rate FiO2 02/27/20 10:40 98.2 98 24 114/54 (74) 98 Nasal Cannula 3.0 98.2 I & O 02/26/20 02/26/20 02/27/20 15:00 23:00 07:00 Intake Total 170 ml 540 ml 0 ml Output Total 750 ml Balance 170 ml -210 ml 0 ml Physical Exam Physical Exam: GENERAL: Propped up in bed, alert, comfortable HEENT: Oroharynx dry NECK: Supple. LUNGS: Decreased breath sounds, no accessory muscle use HEART: S1, S2. ABDOMEN: Soft, nontender, nondistended. EXTREMITIES: No edema, no cyanosis. NEUROLOGIC: Alert and oriented x 3, grossly nonfocal. PSYCHIATRIC: Cooperative, appropriate mood and affect. DERMATOLOGIC: Warm and dry. No generalized rash. PIV looks ok General: Alert, Oriented X3, Cooperative, No acute distress Heart: Regular rate, No murmurs Lungs: Wheezing (improved) Abdomen: Normal bowel sounds, Soft Extremities: No clubbing Skin: No rashes, No breakdown, No significant lesion Review of Systems Review of Systems: denies pain denies weakness Assessment and Plan Assessmemt and Plan Problems Medical Problems: (1) COPD exacerbation Status: Acute (2) Dyspnea Status: Acute ASSESSMENT COPD acute exacerbation Severe protein-caloric malnutrition CML Weakness Thrombocytopenia PLAN Continue O2 NC during day Continue BiPAP during night Continue nebulizers Continue cefdinir Continue prednisone PO PT/OT Home meds DVT prophylaxis DNR Discharge disposition pending to SNU Comment Review of Relevant I have reviewed the following items la (where applicable) has been applied. Medications: Current Medications Medications (Trade) Dose Ordered Sig/Torsten Route PRN Reason Start Time Stop Time Status Last Admin Dose Admin Albuterol/ Ipratropium (Duoneb) 3 ml Q4HRS NEB 02/26/20 12:00 02/27/20 07:37 Justicifation of Admission Dx: Justifications for Admission: Justification of Admission Dx: Yes MANUEL RODRIGUEZ III DO Feb 27, 2020 11:27
[2020-02-27] MEDS: CEFDINIR 300 MG CAPSULE PO SCH ×2 (12:29→20:49)
[2020-02-27] MEDS: ANTI-COAG MONITOR BY PHARMACY. MC PRN ×2 (14:27→14:32)
[2020-02-27 14:46] VITALS: BP 141/47
[2020-02-27] MEDS: GLEEVEC PO SCH (16:23)
[2020-02-27 19:00] VITALS: BP 132/65
[2020-02-27 23:00] VITALS: BP 107/37
--- NOTE | 2020-02-28 02:00 | NUR ---
Pt wore bipap until 0200. Placed back on 3L/NC at this time.
[2020-02-28] MEDS: IPRATRPIUM/ALBUTEROL 0.5/2.5MG 3 ML NEBU. NEB SCH ×6 (03:18→19:41)
[2020-02-28 03:49] VITALS: BP 115/50
[2020-02-28 07:00] VITALS: BP 125/39
[2020-02-28] MEDS: ANTI-COAG MONITOR BY PHARMACY. MC PRN (08:23)
[2020-02-28] MEDS: BUDESONIDE 0.5 MG/2 ML NEBU. NEB SCH ×2 (08:29→19:41)
--- NOTE | 2020-02-28 08:30 | PDOC ---
Infectious Disease Note Subjective Subjective Currently comfortable - had Bipap earlier Getting RT No fevers/chills No appetite but does not like the food- drinking ensure ROS ROS o/w neg Vital Sign Vital Signs Vital Signs Date Time Temp Pulse Resp B/P (MAP) Pulse Ox O2 Delivery O2 Flow Rate FiO2 02/28/20 03:49 98.2 91 22 115/50 (71) 98 Nasal Cannula 98.2 02/27/20 19:43 3.0 Physical Exam PHYSICAL EXAM GENERAL: Propped up in bed, alert, comfortable. Looks better HEENT: Oroharynx dry NECK: Supple. LUNGS: Decreased breath sounds, trace wheeze on left HEART: S1, S2. ABDOMEN: Soft, nontender, nondistended. EXTREMITIES: No edema, no cyanosis. NEUROLOGIC: Alert and oriented x 3, grossly nonfocal. PSYCHIATRIC: Cooperative, appropriate mood and affect. DERMATOLOGIC: Warm and dry. No generalized rash. PIV looks ok Labs Micro Microbiology 02/20/20 Blood Culture - Final, Complete NO GROWTH AFTER 5 DAYS Objective Assessment COPD exacerbation - improving Pancytopenia/ WBC improved on steroids History of CML Chronic hypoxic respiratory failure on 2 L O2 at home History of lung cancer status post radiation Coronary artery disease Protein calorie malnutrition h/o A-fib, on amiodarone Plan Plan of Care Cont Cefdinir 02/26 though 03/01 D/c doxycycline 02/20 D/w nursing ID to sign off LEONARD BERGERON MD Feb 28, 2020 08:30
[2020-02-28] MEDS: guaiFENesin DM 600/30MG 1 TAB TAB.ER.12H PO SCH ×2 (09:00→20:34)
[2020-02-28] MEDS: CEFDINIR 300 MG CAPSULE PO SCH ×2 (09:02→20:34)
[2020-02-28] MEDS: APIXABAN 5 MG TABLET. PO SCH ×2 (09:02→20:34)
[2020-02-28] MEDS: LISINOPRIL 10 MG TABLET PO SCH (09:02)
[2020-02-28] MEDS: FUROSEMIDE 20 MG TABLET PO SCH (09:03)
[2020-02-28] MEDS: POTASSIUM CHLORIDE 10 MEQ TABLET.ER. PO SCH (09:03)
[2020-02-28] MEDS: CALCIUM CARB/VIT D3 500/200 TABLET. PO SCH ×2 (09:03→17:55)
[2020-02-28] MEDS: AMIODARONE HCL 200 MG TABLET. PO SCH (09:03)
[2020-02-28] MEDS: methylPREDNISolone SOD SUCC PF 125 MG/2 ML VIAL. IV SCH ×2 (09:04→20:34)
[2020-02-28 11:00] VITALS: BP 130/71
--- NOTE | 2020-02-28 11:21 | PDOC ---
[employer] PROGRESS NOTE Date of Service DOS: DATE: 02/28/20 TIME: 11:18 Chief Complaint Chief Complaint COPD acute exacerbation Severe protein-caloric malnutrition CML Weakness Thrombocytopenia History of Present Illness History of Present Illness 02/28/2020 Patient was seen in room, asleep on BiPAP. Reviewed case with Dr. Nguyen He would prefer patient go to a long-term acute care facility since she is on a lot of oxygen and BiPAP She might even eventually qualify for hospice and I agree with his input Reviewed case with RN 02/27/2020 Patient seen and examined Patient still requires BiPAP at night and 3L O2 NC during the day, her baseline is 2L at home Resting with NAD Discussed with RN Reviewed chart 02/26/2020 Patient seen and examined She is still requiring BiPAP at night and 3L O2 NC during the day, her baseline is 2L at home She is resting with NAD Discussed with RN Chart reviewed Vitals/I&O Vitals/I&O: Vital Signs Date Time Temp Pulse Resp B/P (MAP) Pulse Ox O2 Delivery O2 Flow Rate FiO2 02/28/20 09:45 93 BiPAP/CPAP 02/28/20 09:03 96 125/39 02/28/20 08:37 3.0 02/28/20 07:00 98.1 20 98.1 I & O 02/27/20 02/27/20 02/28/20 15:00 23:00 07:00 Intake Total 50 ml 500 ml 100 ml Output Total 300 ml 600 ml Balance -250 ml 500 ml -500 ml Physical Exam Physical Exam: GENERAL: Propped up in bed, alert, comfortable. Looks better HEENT: Oroharynx dry NECK: Supple. LUNGS: Decreased breath sounds, trace wheeze on left HEART: S1, S2. ABDOMEN: Soft, nontender, nondistended. EXTREMITIES: No edema, no cyanosis. NEUROLOGIC: Alert and oriented x 3, grossly nonfocal. PSYCHIATRIC: Cooperative, appropriate mood and affect. DERMATOLOGIC: Warm and dry. No generalized rash. PIV looks ok General: No acute distress Heart: Regular rate, No murmurs Lungs: Wheezing (improved) Abdomen: Normal bowel sounds, Soft Extremities: No clubbing Skin: No rashes, No breakdown, No significant lesion Assessment and Plan Assessmemt and Plan Assessment Medical Problems: (1) COPD exacerbation Status: Acute (2) Dyspnea Status: Acute End-stage COPD with respiratory failure Plan: Monitor and continue BiPAP. As per ID, continue Cefdinir though 03/01 Discuss with trimming caser Dr. Baugh and I had a discussion and I certainly agree with his input that the patient should probably go to a long-term acute care facility or maybe even hospice if she does not get better For now continue steroids BiPAP nebulizers Home meds DVT prophylaxis DNR Long-term prognosis guarded Comment Review of Relevant I have reviewed the following items la (where applicable) has been applied. Justicifation of Admission Dx: Justifications for Admission: Justification of Admission Dx: Yes MANUEL RODRIGUEZ III DO Feb 28, 2020 11:21
--- NOTE | 2020-02-28 11:58 | PDOC ---
PULMONARY PROGRESS NOTES DATE: 02/28/20 TIME: 11:57 Subjective back on bipap, Vitals Vital Signs Date Time Temp Pulse Resp B/P (MAP) Pulse Ox O2 Delivery O2 Flow Rate FiO2 02/28/20 11:28 98 BiPAP/CPAP 02/28/20 11:00 98.4 95 20 130/71 (90) 98.4 02/28/20 08:37 3.0 ROS: No Nausea, No Chest Pain General: Lethargic Lungs: Clear Cardiovascular: S1, S2 Abdomen: Soft, Non-tender Neuro Exam: Alert Extremities: No Edema Skin: Warm Medications Active Scripts Medications Dose Route/Sig Max Daily Dose Days Date Category Dose Instructions Gleevec (Imatinib Mesylate) 400 Mg Tablet 400 Mg PO DAILYAC 02/21/20 Reported Advil (Ibuprofen) 200 Mg Tablet 200 Mg PO PRN PRN 01/11/20 Reported Budesonide 0.5 Mg/2 Ml Ampul.neb 1 Vial NEB BID 01/11/20 Reported Duoneb 0.5-3(2.5) Mg/3 Ml (Albuterol/Ipratropium) 3 Ml Ampul.neb 3 Ml NEB QID 01/11/20 Reported Miralax (Polyethylene Glycol 3350) 17 Gm Powd.pack 1 Packet PO QODAY 2 01/11/20 Reported dissolve in water Mucus Relief ER (Guaifenesin) 1,200 Mg Tab.er.12h 1,200 Mg PO DAILY 01/11/20 Reported Alendronate Sodium 70 Mg Tablet 1 Tab PO WEEKLY 01/11/20 Reported Eliquis (Apixaban) 5 Mg Tablet 5 Mg PO BID 01/11/20 Reported Restart tomorrow 01/12/2020 [Vitamin D2] 50,000 Units PO WEEKLY 01/11/20 Reported Furosemide 20 Mg Tablet 1 Tab PO DAILY 01/11/20 Reported Klor-Con 10 (Potassium Chloride) 10 Meq Tablet.er 1 Tab PO DAILY 30 01/11/20 Reported Diltiazem 24Hr Cd (Diltiazem HCl) 240 Mg Cap.er.24h 1 Cap PO DAILY 30 01/11/20 Reported Amiodarone Hcl 100 Mg Tablet 1 Tab PO DAILY 30 01/11/20 Reported Calcium 600 + Vit D Caplet (Calcium Carbonate/Vitamin D3) 1 Each Tablet 1 Tab PO BID 30 01/11/20 Reported Ventolin Hfa Inhaler (Albuterol Sulfate) 18 Gm Hfa.aer.ad 18 Gm IH QID 10/13/13 Rx Brovana (Arformoterol Tartrate) 15 Mcg/2 Ml Vial.neb 15 Mcg IH BID 10/11/13 Reported Levalbuterol Concentrate (Levalbuterol Hcl) 1.25 Mg/0.5 Ml Vial.neb 1.25 Mg IH QID 06/24/13 Reported Comments CXR: IMPRESSION: Small bilateral pleural effusions, with adjacent airspace disease likely atelectasis. Impression . IMPRESSION: 1. Dyspnea with acute on chronic hypercapnic .(secondary to acute exacerbation of chronic obstructive pulmonary disease. on home O2 at 2 litres. ) 2. Acute tracheobronchitis. 3. The patient with history of lung cancer, was not a surgical candidate, treated with radiation about 5 years ago. 4. History of leukemia, details are not available. Plan . 1. PRN BIPAP. BD to q 4hrs, lasix prn. .02 titration to keep sat 90%, avoid hyperoxia 2. Continue with nebulizers. 3. Continue with empiric antibiotics. 4. Eliquis per PCP. 5. cont solumedrol 6. consider LTAC vs hospice d/w DR RODRIGUEZ Discussed with RN, DNR YENIFER BARKER MD Feb 28, 2020 11:58
[2020-02-28 15:00] VITALS: BP 139/52
[2020-02-28] MEDS: GLEEVEC PO SCH (16:08)
[2020-02-28 18:51] VITALS: BP 115/55
[2020-02-28 23:40] VITALS: BP 157/59
[2020-02-29] MEDS: IPRATRPIUM/ALBUTEROL 0.5/2.5MG 3 ML NEBU. NEB SCH ×4 (00:22→11:17)
[2020-02-29 03:00] VITALS: BP 150/61
[2020-02-29 07:00] VITALS: BP 136/58
[2020-02-29] MEDS: BUDESONIDE 0.5 MG/2 ML NEBU. NEB SCH (07:49)
[2020-02-29] MEDS: guaiFENesin DM 600/30MG 1 TAB TAB.ER.12H PO SCH (09:00)
--- NOTE | 2020-02-29 09:19 | PDOC ---
PULMONARY PROGRESS NOTES DATE: 02/29/20 TIME: 09:17 Subjective pt. is resting on 3 liters N/C, continues to report SOB and mild cough, No CP Vitals Vital Signs Date Time Temp Pulse Resp B/P (MAP) Pulse Ox O2 Delivery O2 Flow Rate FiO2 02/29/20 07:49 89 Nasal Cannula 3.0 02/29/20 07:00 98.2 98 20 136/58 (84) 98.2 ROS: No Nausea, No Chest Pain General: Alert, Oriented X4 Lungs: Other (decreased BS) Cardiovascular: S1, S2 Abdomen: Soft, Non-tender Neuro Exam: Alert Extremities: No Edema Skin: Warm Medications Active Scripts Medications Dose Route/Sig Max Daily Dose Days Date Category Dose Instructions Gleevec (Imatinib Mesylate) 400 Mg Tablet 400 Mg PO DAILYAC 02/21/20 Reported Advil (Ibuprofen) 200 Mg Tablet 200 Mg PO PRN PRN 01/11/20 Reported Budesonide 0.5 Mg/2 Ml Ampul.neb 1 Vial NEB BID 01/11/20 Reported Duoneb 0.5-3(2.5) Mg/3 Ml (Albuterol/Ipratropium) 3 Ml Ampul.neb 3 Ml NEB QID 01/11/20 Reported Miralax (Polyethylene Glycol 3350) 17 Gm Powd.pack 1 Packet PO QODAY 2 01/11/20 Reported dissolve in water Mucus Relief ER (Guaifenesin) 1,200 Mg Tab.er.12h 1,200 Mg PO DAILY 01/11/20 Reported Alendronate Sodium 70 Mg Tablet 1 Tab PO WEEKLY 01/11/20 Reported Eliquis (Apixaban) 5 Mg Tablet 5 Mg PO BID 01/11/20 Reported Restart tomorrow 01/12/2020 [Vitamin D2] 50,000 Units PO WEEKLY 01/11/20 Reported Furosemide 20 Mg Tablet 1 Tab PO DAILY 01/11/20 Reported Klor-Con 10 (Potassium Chloride) 10 Meq Tablet.er 1 Tab PO DAILY 30 01/11/20 Reported Diltiazem 24Hr Cd (Diltiazem HCl) 240 Mg Cap.er.24h 1 Cap PO DAILY 30 01/11/20 Reported Amiodarone Hcl 100 Mg Tablet 1 Tab PO DAILY 30 01/11/20 Reported Calcium 600 + Vit D Caplet (Calcium Carbonate/Vitamin D3) 1 Each Tablet 1 Tab PO BID 30 01/11/20 Reported Ventolin Hfa Inhaler (Albuterol Sulfate) 18 Gm Hfa.aer.ad 18 Gm IH QID 10/13/13 Rx Brovana (Arformoterol Tartrate) 15 Mcg/2 Ml Vial.neb 15 Mcg IH BID 10/11/13 Reported Levalbuterol Concentrate (Levalbuterol Hcl) 1.25 Mg/0.5 Ml Vial.neb 1.25 Mg IH QID 06/24/13 Reported Comments CXR: IMPRESSION: Small bilateral pleural effusions, with adjacent airspace disease likely atelectasis. Impression . IMPRESSION: 1. Dyspnea with acute on chronic hypercapnic .(secondary to acute exacerbation of chronic obstructive pulmonary disease. on home O2 at 2 litres. ) 2. Acute tracheobronchitis. 3. The patient with history of lung cancer, was not a surgical candidate, treated with radiation about 5 years ago. 4. History of leukemia, details are not available. Plan . 1. PRN BIPAP. BD to q 4hrs, lasix prn. .02 titration to keep sat 90%, avoid hyperoxia 2. Continue with nebulizers. 3. Continue with empiric antibiotics. 4. Eliquis per PCP. 5. cont solumedrol 6. plan to D/C to LTACH today 7. Discussed possible hospice with pt. she is not sure that something she wants at this time. Discussed with RN, DNR YENIFER BARKER MD Feb 29, 2020 09:19
[2020-02-29] MEDS: POLYETHYLENE GLYCOL 3350 17 GM PACKET. PO SCH (09:42)
[2020-02-29] MEDS: CALCIUM CARB/VIT D3 500/200 TABLET. PO SCH (09:42)
[2020-02-29] MEDS: LISINOPRIL 10 MG TABLET PO SCH (09:43)
[2020-02-29] MEDS: FUROSEMIDE 20 MG TABLET PO SCH (09:43)
[2020-02-29] MEDS: APIXABAN 5 MG TABLET. PO SCH (09:43)
[2020-02-29] MEDS: CEFDINIR 300 MG CAPSULE PO SCH (09:44)
[2020-02-29] MEDS: POTASSIUM CHLORIDE 10 MEQ TABLET.ER. PO SCH (09:44)
[2020-02-29] MEDS: methylPREDNISolone SOD SUCC PF 125 MG/2 ML VIAL. IV SCH (09:44)
[2020-02-29] MEDS: AMIODARONE HCL 200 MG TABLET. PO SCH (09:44)
[2020-02-29] MEDS ORDERED: CEFD300C PO (10:06)
--- NOTE | 2020-02-29 10:07 | SNU/HH DC ---
DISCHARGE ORDERS DISCHARGE INFORMATION: DISCHARGE DATE: Feb 29, 2020 FINAL DIAGNOSIS Problems Medical Problems: (1) COPD exacerbation Status: Acute (2) Dyspnea Status: Acute CONDITION ON DISCHARGE: Stable CODE STATUS: Code Status: DNR/DNI FPC: SNF STAY <30 DAYS: Yes POST DISCHARGE ORDERS: ACTIVITY ORDERS: Activity as tolerated WEIGHT BEARING STATUS: As tolerated WOUND/INCISION CARE: Keep wound/cast CDI TREATMENT/EQUIPMENT ORDERS: ADAPTIVE EQUIPMENT NEEDED: None DISCHARGE MEDICATIONS: Home Meds Active Scripts Cefdinir (CEFDINIR) 300 Mg Capsule, 300 MG PO BID for copd for 2 Days, #4 CAP Prov:RENAN FRITZ MD 02/29/20 Albuterol Sulfate (VENTOLIN HFA INHALER) 18 Gm Hfa.aer.ad, 18 GM IH QID, #1 Prov:ISRRAEL SWANSON MD 10/13/13 Reported Medications Imatinib Mesylate (GLEEVEC) 400 Mg Tablet, 400 MG PO DAILYAC for chemo, TAB 02/21/20 Ibuprofen (ADVIL) 200 Mg Tablet, 200 MG PO PRN PRN for PAIN, TAB 01/11/20 Budesonide (BUDESONIDE) 0.5 Mg/2 Ml Ampul.neb, 1 VIAL NEB BID for wheezing, #120 ML 3 Refills 01/11/20 Ipratropium/Albuterol Sulfate (DUONEB 0.5-3(2.5) MG/3 ML) 3 Ml Ampul.neb, 3 ML NEB QID for wheezing, EACH 01/11/20 Polyethylene Glycol 3350 (MIRALAX) 17 Gm Powd.pack, 1 PACKET PO QODAY for constipation for 2 Days, #2 PACKET 0 Refills dissolve in water 01/11/20 Guaifenesin (Mucus Relief ER) 1,200 Mg Tab.er.12h, 1200 MG PO DAILY for congest ion, TAB.SR 01/11/20 Alendronate Sodium (ALENDRONATE SODIUM) 70 Mg Tablet, 1 TAB PO WEEKLY for Bone Density, #4 TAB 3 Refills 01/11/20 Apixaban (ELIQUIS) 5 Mg Tablet, 5 MG PO BID for Afib, TAB Restart tomorrow 01/12/2020 01/11/20 [Vitamin D2] No Conflict Check, 70111 UNITS PO WEEKLY 01/11/20 Furosemide (FUROSEMIDE) 20 Mg Tablet, 1 TAB PO DAILY for water retention, #90 TAB 1 Refill 01/11/20 Potassium Chloride (Klor-Con 10) 10 Meq Tablet.er, 1 TAB PO DAILY for supplement for 30 Days, #30 TAB 0 Refills 01/11/20 Diltiazem HCl (Diltiazem 24Hr Cd) 240 Mg Cap.er.24h, 1 CAP PO DAILY for heart for 30 Days, #30 CAP 0 Refills 01/11/20 Amiodarone Hcl (AMIODARONE HCL) 100 Mg Tablet, 1 TAB PO DAILY for heart for 30 Days, #30 TAB 0 Refills 01/11/20 Calcium Carbonate/Vitamin D3 (CALCIUM 600 + VIT D CAPLET) 1 Each Tablet, 1 TAB PO BID for supplement for 30 Days, #60 TAB 0 Refills 01/11/20 Arformoterol Tartrate (BROVANA) 15 Mcg/2 Ml Vial.neb, 15 MCG IH BID 10/11/13 Levalbuterol Hcl (LEVALBUTEROL CONCENTRATE) 1.25 Mg/0.5 Ml Vial.neb, 1.25 MG IH QID, #1 06/24/13 RENAN FRITZ MD Feb 29, 2020 10:07
[2020-02-29 11:00] VITALS: BP 117/50
--- NOTE | 2020-02-29 11:46 | NUR ---
Discharge Note: JEM LA [address] Discharge instructions and discharge home medications reviewed with Other facility and a copy given. All questions have been answered and understanding verbalized. The following instructions and handouts were given: Bipap settings Discontinued lines and drains: IV catheter removed intact. Patient discharged to [facility] via [facility].
--- NOTE | 2020-02-29 15:19 | PDOC3 ---
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 weakness, debility thrombocytoenai, Final Diagnosis Problems Medical Problems: (1) COPD exacerbation Status: Acute (2) Dyspnea Status: Acute COPD acute exacerbation Severe protein-caloric malnutrition CML Weakness Thrombocytopenia Brief Hospital Course Allergies Allergies Coded Allergies Type Severity Reaction Last Updated Verified acetaminophen Allergy Severe Hallucinations 01/11/20 Yes oxycodone Allergy Severe Hallucinations 01/11/20 Yes Vital Signs Vital Signs Date Time Temp Pulse Resp B/P (MAP) Pulse Ox O2 Delivery O2 Flow Rate FiO2 02/29/20 11:17 92 Nasal Cannula 3.0 02/29/20 11:00 94.9 67 20 117/50 (72) 94.9 Brief Hospital Course History of Present Illness transfer to step-down unit, cont curernt, try BIPAP, is DNR Ms. Son is a 69 year old female with a history of COPD presents with a 2-day history of shortness of breath. She has cough and dyspena, and feels she needs more breathing treatments, but is getting ruled out for COVID currently. NEG she has symtoms are worse with exertion. Patient received nebulizer prior to arrival with some improvement. History of right lung cancer treated with radiation close to 5 years ago. No chemo. Leukemia. She was kept on close monitoring throughout her hospital stay and required BiPAP at night and 3 L O2 during the day. Patient was evaluated by pulmonary relationship consultant and also ID, she was started on broad-spectrum antibiotic and her blood cultures did not reveal any growth after 5 days from the initial test on 02/20/2020. She received a course of doxycycline which was transitioned to cefdinir from 817 and recommended to continue through 820 as per relationship consultant. Given the severe COPD of the patient and the poor quality of life our relationship consultant offered the option to transition under hospice care nevertheless patient is not quite ready to make that decision yet and she will be moving to a long-term acute care facility noted to continue with her care given that she is requiring BiPAP at night. Greater than 35 minutes were spent in the discharge process with the patient counseling coordination of care and arrangement for a safe discharge Physical Exam GENERAL: Propped up in bed, alert, comfortable. Looks better HEENT: Oroharynx dry NECK: Supple. LUNGS: Decreased breath sounds, trace wheeze on left HEART: S1, S2. ABDOMEN: Soft, nontender, nondistended. EXTREMITIES: No edema, no cyanosis. NEUROLOGIC: Alert and oriented x 3, grossly nonfocal. PSYCHIATRIC: Cooperative, appropriate mood and affect. DERMATOLOGIC: Warm and dry. No generalized rash. PIV looks ok Assessment Assessment IMAGING REPORT Signed PATIENT: JEM SON ACCOUNT: [id number] : 1950 LOCATION: ER AGE: 69 SEX: F EXAM STATUS: PRE ER ORD. PHYSICIAN: HIGINIO CORTES MD REASON: soa PROCEDURE: PORTABLE CHEST 1V Exam: Chest one view INDICATION: Short of air TECHNIQUE: Frontal view of the chest Comparisons: 02/10/2020 FINDINGS: The cardiomediastinal silhouette and pulmonary vessels are within normal limits. Small bilateral pleural effusions. Adjacent strandy opacities. Remaining lungs are clear. IMPRESSION: Small bilateral pleural effusions, with adjacent airspace disease likely atelectasis. Electronically signed by: Toma Martinez MD (02/20/2020 7:22 PM) [id number] DICTATED and SIGNED BY: OTMA MARTINEZ MD DATE: 02/20/201921 Discharge Information Condition at Discharge: Improved Follow Up: Weeks Disposition/Orders: D/C to Home Scheduled Albuterol Sulfate (Ventolin Hfa Inhaler) 18 Gm Hfa.aer.ad, 18 GM IH QID, #1 Prescribed by: ROSALIND CONNELLY on 10/13/13 0943 Last Action: Converted on 02/21/20739 by SAMM BOOTHE Alendronate Sodium (Alendronate Sodium) 70 Mg Tablet, 1 TAB PO WEEKLY for Bone Density, #4 Ref 3 (Reported) Entered as Reported by: VALERIA CHUA on 01/11/20729 Last Action: HELD on 02/21/20 1027 by ANDREW LEE Amiodarone Hcl (Amiodarone Hcl) 100 Mg Tablet, 1 TAB PO DAILY for heart for 30 Days, #30 Ref 0 (Reported) Entered as Reported by: VALERIA CHUA on 01/11/20729 Last Action: Converted on 02/21/201026 by ANDREW LEE Apixaban (Eliquis) 5 Mg Tablet, 5 MG PO BID for Afib, (Reported) Restart tomorrow 01/12/2020 Entered as Reported by: VALERIA CHUA on 01/11/20729 Last Action: Continued on 02/21/20 1027 by ANDREW LEE Arformoterol Tartrate (Brovana) 15 Mcg/2 Ml Vial.neb, 15 MCG IH BID, (Reported) Entered as Reported by: KARINE GAMBLE on 10/11/13 1354 Last Action: Converted on 02/21/201026 by ANDREW LEE Budesonide (Budesonide) 0.5 Mg/2 Ml Ampul.neb, 1 VIAL NEB BID for wheezing, #120 Ref 3 (Reported) Entered as Reported by: VALERIA CHUA on 01/11/20729 Calcium Carbonate/Vitamin D3 (Calcium 600 + Vit D Caplet) 1 Each Tablet, 1 TAB PO BID for supplement for 30 Days, #60 Ref 0 (Reported) Entered as Reported by: VALERIA CHUA on 01/11/20729 Last Action: Converted on 02/21/201026 by ANDREW LEE Cefdinir (Cefdinir) 300 Mg Capsule, 300 MG PO BID for copd for 2 Days, #4 Prescribed by: RENAN FRITZ MD on 02/29/20 1006 Diltiazem HCl (Diltiazem 24Hr Cd) 240 Mg Cap.er.24h, 1 CAP PO DAILY for heart for 30 Days, #30 Ref 0 (Reported) Entered as Reported by: VALERIA CHUA on 01/11/20729 Last Action: Continued on 02/21/207 by ANDREW LEE Furosemide (Furosemide) 20 Mg Tablet, 1 TAB PO DAILY for water retention, #90 Ref 1 (Reported) Entered as Reported by: VALERIA CHUA on 01/11/20729 Last Action: Continued on 02/21/201026 by ANDREW LEE Guaifenesin (Mucus Relief ER) 1,200 Mg Tab.er.12h, 1,200 MG PO DAILY for congestion, (Reported) Entered as Reported by: VALERIA CHUA on 01/11/20729 Last Action: Converted on 02/21/201026 by ANDREW LEE Imatinib Mesylate (Gleevec) 400 Mg Tablet, 400 MG PO DAILYAC for chemo, (Reported) Entered as Reported by: KRISTIN SAPP on 02/21/20422 Last Taken: Unknown Dose on 02/20/20 Last Action: Converted on 02/21/201026 by ANDREW LEE Ipratropium/Albuterol Sulfate (Duoneb 0.5-3(2.5) Mg/3 Ml) 3 Ml Ampul.neb, 3 ML NEB QID for wheezing, (Reported) Entered as Reported by: VALERIA CHUA on 01/11/20729 Last Action: Continued on 02/21/201026 by ANDREW LEE Levalbuterol Hcl (Levalbuterol Concentrate) 1.25 Mg/0.5 Ml Vial.neb, 1.25 MG IH QID, #1 (Reported) Entered as Reported by: ALBARO VOMASTIC on 06/24/13728 Polyethylene Glycol 3350 (Miralax) 17 Gm Powd.pack, 1 PACKET PO QODAY for constipation for 2 Days, #2 Ref 0 (Reported) dissolve in water Entered as Reported by: VALERIA CHUA on 01/11/20729 Last Action: Continued on 02/21/201026 by ANDREW LEE Potassium Chloride (Klor-Con 10) 10 Meq Tablet.er, 1 TAB PO DAILY for supplement for 30 Days, #30 Ref 0 (Reported) Entered as Reported by: VALERIA CHUA on 01/11/20729 Last Action: Converted on 02/21/201026 by ANDREW LEE [Vitamin D2] , 50,000 UNITS PO WEEKLY, (Reported) Entered as Reported by: VALERIA CHUA on 01/11/20729 Last Action: HELD on 02/21/201026 by ANDREW LEE Scheduled PRN Ibuprofen (Advil) 200 Mg Tablet, 200 MG PO PRN PRN for PAIN, (Reported) Entered as Reported by: VALERIA CHUA on 01/11/20729 Justicifation of Admission Dx: Justifications for Admission: Justification of Admission Dx: Yes RENAN FRITZ MD Feb 29, 2020 15:19
== END 2020-02-29 11:38 | DRG 871 ==
LOC: ER 18:40 → 6 SOUTH 21:26 → 4 NORTH 02-22 16:00 → 2 SOUTH 02-24 11:25
PROVIDERS: ADMIT Internal Medicine; ATTEND Internal Medicine
PROC: 5A09357 Assistance with Respiratory Ventilation, Less than 24 Consecutive Hours, Continuous Positive Airway Pressure (ICD-10-PCS; principal; 2020-02-24)
PROC: 5A09357 Assistance with Respiratory Ventilation, Less than 24 Consecutive Hours, Continuous Positive Airway Pressure (ICD-10-PCS; 2020-02-25)
PROC: 5A09357 Assistance with Respiratory Ventilation, Less than 24 Consecutive Hours, Continuous Positive Airway Pressure (ICD-10-PCS; 2020-02-26)
PROC: 5A09357 Assistance with Respiratory Ventilation, Less than 24 Consecutive Hours, Continuous Positive Airway Pressure (ICD-10-PCS; 2020-02-27)
PROC: 5A09357 Assistance with Respiratory Ventilation, Less than 24 Consecutive Hours, Continuous Positive Airway Pressure (ICD-10-PCS; 2020-02-28)
PROC: 5A09357 Assistance with Respiratory Ventilation, Less than 24 Consecutive Hours, Continuous Positive Airway Pressure (ICD-10-PCS; 2020-02-29)
DX: A41.9 Sepsis, unspecified organism (principal); E43 Unspecified severe protein-calorie malnutrition; J96.21 Acute and chronic respiratory failure with hypoxia; J96.22 Acute and chronic respiratory failure with hypercapnia; J44.1 Chronic obstructive pulmonary disease with (acute) exacerbation; C92.10 Chronic myeloid leukemia, BCR/ABL-positive, not having achieved remission; J98.11 Atelectasis; J90 Pleural effusion, not elsewhere classified; D61.818 Other pancytopenia; J44.0 Chronic obstructive pulmonary disease with (acute) lower respiratory infection; J20.9 Acute bronchitis, unspecified; G89.29 Other chronic pain; Z20.828 Contact with and (suspected) exposure to other viral communicable diseases; Z66 Do not resuscitate; I25.10 Atherosclerotic heart disease of native coronary artery without angina pectoris; I10 Essential (primary) hypertension; M81.0 Age-related osteoporosis without current pathological fracture; R53.81 Other malaise; I48.91 Unspecified atrial fibrillation; Z68.21 Body mass index [BMI] 21.0-21.9, adult; Z99.81 Dependence on supplemental oxygen; Z92.3 Personal history of irradiation; Z87.01 Personal history of pneumonia (recurrent); Z85.118 Personal history of other malignant neoplasm of bronchus and lung; Z87.891 Personal history of nicotine dependence; Z90.710 Acquired absence of both cervix and uterus; Z88.5 Allergy status to narcotic agent; Z88.6 Allergy status to analgesic agent
CPT/HCPCS: 36415; 36600; 71045; 80048; 80053; 82805; 83605; 83880; 84484; 85007; 85025; 87040; 93005; 94640; 94644; 94660; 94760; 96365; 96375; 99285; J0456; J0696; J1940; J2060; J2543; J2930; J7512; 97110-GP; 97530-GO; 97530-GP; 97535-GO; G0378; J7613; J7626; J7644; U0003-CS